=== PATIENT | female | born 1940 | race Caucasian/White ===

== ENCOUNTER → 2016-06-26 | Outpatient (CLI) | payer MEDICARE, BC ==
--- NOTE | 2016-06-26 16:45 | MR ---
EXAMINATION TYPE: MR lumbar spine wo con DATE OF EXAM: 06/26/2016 4:31 PM COMPARISON: CT of the lumbar spine dated 07/31/2013 HISTORY: LBP, LLE radiculopathy x 6 months, no trauma/surgery TECHNIQUE: Multiplanar, multisequence images of the lumbar spine were acquired. There is a transitional vertebra l segment with partial sacralization of L5. Prior any surgical intervention radiographic correlation is advised. L1-L2: There is mild decreased signal and loss of height compatible degenerative disc disease. Minima l posterior disc bulge noted. No herniation protrusion or central stenosis. Foramina are patent. L2-L3: There is mild decreased signal and loss of height compatible degenerative disc disease. Minima l posterior disc bulge noted. No herniation protrusion or central stenosis. Foramina are patent. L3-L4: There is an L3 burst fracture with retropulsion of 1.2 cm. Interval progression noted from violeta or CT. There is effacement of the ventral thecal sac with the severe canal stenosis. There is bilate ral foraminal encroachment. There is posterior disc bulge noted with disc desiccation identified. L4-L5: Normal disc appearance without desiccation. No herniation, protrusion or disc bulging. No ca nal stenosis is present. Foramina are patent bilaterally. L5-S1: Normal disc appearance without desiccation. No herniation, protrusion or disc bulging. No ca nal stenosis is present. Foramina are patent bilaterally. No paraspinal masses are identified. Conus medullaris has a normal appearance. IMPRESSION: 1. Remote L3 burst fracture with retropulsion and severe resultant canal stenosis at this level. 2. Mild multilevel degenerative disc disease.
== END | disposition home or self-care (01) ==
LOC: RADMRIMAIN 14:55
PROVIDERS: ATTEND Physician Assistant
DX: S32.031A Stable burst fracture of third lumbar vertebra, initial encounter for closed fracture (principal); M48.06 Spinal stenosis, lumbar region; M51.36 Other intervertebral disc degeneration, lumbar region
CPT/HCPCS: 72148

== ENCOUNTER → 2016-07-14 | Outpatient (CLI) | payer MEDICARE, BC ==
--- NOTE | 2016-07-15 17:32 | BD ---
EXAMINATION TYPE: MG DEXA axial skeleton. DATE OF EXAM: 07/14/2016 2:53 PM COMPARISON: NONE CLINICAL HISTORY: 76-year-old female OSTEOPENIA Height: 5'8 Weight: 240 FRAX RISK QUESTIONS: Alcohol (3 or more units per day): no Family History (Parent hip fracture): no Glucocorticoids (More than 3mos): no (Ex: prednisone, prednisolone, methylprednisolone, dexamethasone, and hydrocortisone). History of Fracture in Adulthood: no Secondary Osteoporosis: 1. Type 1 Diabetes: no 2. Hyperthyroidism: no 3. Menopause before 45: yes 4. Malnutrition: no 5. Chronic liver disease: no Rheumatoid Arthritis: no Current Tobacco Use: no RISK FACTORS HISTORY OF: Spine Fracture: L4 When: 2013 Other Fractures since Age 52: When: 2013 Active Family History of Osteoporosis: Postmenopausal woman: MEDICATIONS: Additional Medications: pain, high blood pressure, cholesterol Additional History: EXAM MEASUREMENTS: Bone mineral density about the R hip (g/cm2): 1.029 Bone mineral density about the L hip (g/cm2): 1.058 T Score values are as follows: -----R Neck: -0.1 -----L Neck: 0.1 -----R Total: 0.6 -----L Total: 0.9 IMPRESSION: Normal as measured by T score values within both hips. Consider repeating this study in 5 years or so mira if there is some new clinical indication. NOTE: T-SCORE=SD OF THE YOUNG ADULT MEAN.
== END | disposition home or self-care (01) ==
LOC: RADBDWWP 14:33
PROVIDERS: ATTEND Family Medicine
DX: M85.80 Other specified disorders of bone density and structure, unspecified site (principal)
CPT/HCPCS: 77080

== ENCOUNTER → 2017-09-03 | Outpatient (CLI) | payer MEDICARE, BC ==
--- NOTE | 2017-09-03 18:27 | US ---
EXAMINATION TYPE: US venous doppler duplex LE LT DATE OF EXAM: 09/03/2017 5:29 PM COMPARISON: 08/01/2013 CLINICAL HISTORY: R60.0 Localized edema. LEFT LOWER LEG REDNESS SIDE PERFORMED: Left TECHNIQUE: The lower extremity deep venous system is examined utilizing real time linear array sonog alvina with graded compression, doppler sonography and color-flow sonography. VESSELS IMAGED: External Iliac Vein (EIV) Common Femoral Vein Deep Femoral Vein Greater Saphenous Vein * Femoral Vein Popliteal Vein Small Saphenous Vein * Proximal Calf Veins (* superficial vessels) Left Leg: Negative for DVT IMPRESSION: Negative exam. No evidence of deep venous thrombosis in the left leg. No change.
== END | disposition home or self-care (01) ==
LOC: RADUSMAIN 17:08
PROVIDERS: ATTEND Physician Assistant
DX: R60.0 Localized edema (principal)

== ENCOUNTER 2017-12-07 00:50 | Inpatient (IN) | payer BC, MEDICARE ==
--- NOTE | 2017-12-07 00:57 | ED ---
General Adult HPI - General Stated complaint: GAGAN Time Seen by Provider: 12/07/17 00:52 - History of Present Illness Initial comments: Yulissa is a 77-year-old female with past medical history listed below who presents to ED via EMS for evaluation of difficulty breathing. History is limited by patient's respiratory effort. EMS reports that they were dispatched for difficulty breathing. They found the patient in moderate to severe respiratory distress, tachypneic, one-word dyspnea , she was treated in route to the hospital with DuoNeb, Solu-Medrol and supplemental oxygen with increase in her oxygen saturation from the mid 80s to the mid 90s. She complained of pressure in her chest with breathing, EKG was obtained and revealed bigeminy no acute ST elevations or depressions. Upon arrival patient reports she is having difficulty breathing. She is able to answer one to 2 word answers. - Related Data Home Medications Medication Instructions Recorded Confirmed Acetaminophen [Tylenol] 650 mg PO DIRECTED PRN 07/31/13 07/31/13 Cetirizine HCl/Pseudoephedrine 1 tab PO DAILY 07/31/13 07/31/13 [Zyrtec-D Tablet] Cholecalciferol [Vitamin D3] 2,000 unit PO AC-SUPPER 07/31/13 07/31/13 Multivitamin/Iron/Folic Acid 1 tab PO AC-SUPPER 07/31/13 07/31/13 [Centrum Complete Multivit Tab] Olmesartan/Hydrochlorothiazide 1 tab PO DAILY 07/31/13 07/31/13 [Benicar Hct 40-25 mg Tablet] Sertraline [Zoloft] 25 mg PO DAILY 07/31/13 07/31/13 Simvastatin [Zocor] 40 mg PO AC-SUPPER 07/31/13 07/31/13 Previous Rx's Medication Instructions Recorded Aspirin EC [Ecotrin Low Dose] 81 mg PO DAILY #30 tablet. 08/06/13 Cefuroxime Axetil [Ceftin] 500 mg PO BID #10 tablet 08/06/13 Docusate [Colace] 100 mg PO BID PRN #30 cap 08/06/13 HYDROcodone/APAP 5-325MG [[place] 1 each PO Q6HR PRN #30 tab 08/06/13 5-325] Heparin Sodium,Porcine [Heparin 5,000 unit SQ BID #60 vial 08/06/13 Sodium] Nicotine 21Mg/24Hr Patch [Habitrol] 1 patch TRANSDERM DAILY #30 patch 08/06/13 traMADol HCL [Ultram] 50 mg PO TID PRN #30 tablet 08/06/13 Allergies Allergy/AdvReac Type Severity Reaction Status Date / Time erythromycin base AdvReac Rash/Hives Verified 07/31/13 18:32 [Erythromycin Base] Sulfa (Sulfonamide AdvReac Rash/Hives Verified 07/31/13 18:32 Antibiotics) Review of Systems ROS Statement: Those systems with pertinent positive or pertinent negative responses have been documented in the HPI. ROS Other: All systems not noted in ROS Statement are negative. Limitations: ROS unobtainable due to patients medical condition (History is limited by patient's respiratory distress) Past Medical History Past Medical History: COPD, Hyperlipidemia, Hypertension, Osteoarthritis (OA) Additional Past Medical History / Comment(s): arthritis, BRONCHITIS, DIVERTICULITIS, IBS, UTI, URINARY INCONT,HIATL HERNIA, CONSTIPATION, FIBROMYALGIA History of Any Multi-Drug Resistant Organisms: None Reported Past Surgical History: Appendectomy, Bladder Surgery, Cholecystectomy, Hysterectomy, Orthopedic Surgery, Tonsillectomy Additional Past Surgical History / Comment(s): JORDEN MAMMORY GLANDS REMOVED D/T DRAINAGE PROBLEMS, RT KNEE ARTHROSCOPY, 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 EYES: The sclera were anicteric and conjunctiva were pink and moist. Extraocular movements were intact and pupils were equal round and reactive to light. Eyelids were unremarkable. PULMONARY: Tachypnea, increased work of breathing, accessory muscle use Crackles in the bilateral bases CARDIOVASCULAR: There is a regular rate and rhythm without any murmurs gallops or rubs. ABDOMEN: Soft and nontender with normal bowel sounds. Belly breathing noted SKIN: Skin is clear with no lesions or rashes and otherwise unremarkable. NEUROLOGIC: Awake and alert MUSCULOSKELETAL: 2+ pitting edema bilateral lower extremities LYMPHATICS: No significant lymphadenopathy is noted PSYCHIATRIC: Normal psychiatric evaluation. Limitations: no limitations Course Vital Signs 12/07/17 12/07/17 12/07/17 00:57 01:25 02:30 Temperature 97.1 F L 97.1 F L Pulse Rate 109 H 80 87 Respiratory 22 15 18 Rate Blood Pressure 191/91 206/86 201/79 O2 Sat by Pulse 96 99 98 Oximetry 12/07/17 12/07/17 03:05 03:53 Temperature Pulse Rate 83 82 Respiratory 18 18 Rate Blood Pressure 219/106 176/83 O2 Sat by Pulse 99 97 Oximetry EKG Findings - EKG Comments: EKG Findings:: EKG obtained at 12:54 AM, rate is 82, rhythm is sinus with frequent PVCs, is a leftward axis, normal intervals, VT 188, QRS 84, QTC 453. His noted to be a pattern of bigeminy. No acute ST elevations or depressions no evidence of acute ischemia or infarction. Medical Decision Making - Medical Decision Making The patient was seen and evaluated, history was obtained from EMS and the patient Patient in moderate respiratory distress tachypneic, 1-2 word dyspnea BIPAP was ordered immediately upon arrival She received DuoNeb and 125 of Solu-Medrol and route Labs and imaging were ordered Chest x-ray suggestive of bilateral infiltrates consistent with healthcare associated pneumonia, Zosyn and Levaquin ordered Chest x-ray also suggestive of CHF with some blunting of the costophrenic angles Lasix ordered Patient was reevaluated, improved work of breathing respiratory rate and oxygen saturation on BiPAP. Patient appears much more comfortable. Noted to be hypertensive. We'll order nitro Patient care was discussed with the instance of this Dr. Nichole who states that based on the patient's clinical improvement with BiPAP she does not warrant ICU admission is stable for selective floor Admission orders placed - Lab Data Result diagrams: 12/07/17 01:20 12/07/17 01:20 Lab Results 12/07/17 12/07/17 12/07/17 Range/Units 01:20 01:20 01:20 WBC (3.8-10.6) k/uL RBC (3.80-5.40) m/uL Hgb (11.4-16.0) gm/dL Hct (34.0-46.0) % MCV (80.0-100.0) fL MCH (25.0-35.0) pg MCHC (31.0-37.0) g/dL RDW (11.5-15.5) % Plt Count (150-450) k/uL Neutrophils % % Lymphocytes % % Monocytes % % Eosinophils % % Basophils % % Neutrophils # (1.3-7.7) k/uL Lymphocytes # (1.0-4.8) k/uL Monocytes # (0-1.0) k/uL Eosinophils # (0-0.7) k/uL Basophils # (0-0.2) k/uL Hypochromasia PT (9.0-12.0) sec INR (<1.2) APTT (22.0-30.0) sec Sodium 135 L (137-145) mmol/L Potassium 5.4 H (3.5-5.1) mmol/L Chloride 96 L (98-107) mmol/L Carbon Dioxide 30 (22-30) mmol/L Anion Gap 9 mmol/L BUN 80 H (7-17) mg/dL Creatinine 1.82 H (0.52-1.04) mg/dL Est GFR (CKD-EPI)AfAm 31 (>60 ml/min/1.73 sqM) Est GFR (CKD-EPI)NonAf 27 (>60 ml/min/1.73 sqM) Glucose 139 H (74-99) mg/dL Plasma Lactic Acid Cheng (0.7-2.0) mmol/L Calcium 8.3 L (8.4-10.2) mg/dL Magnesium 2.7 H (1.6-2.3) mg/dL Total Bilirubin 0.6 (0.2-1.3) mg/dL AST 28 (14-36) U/L ALT 56 H (9-52) U/L Alkaline Phosphatase 70 (38-126) U/L Total Creatine Kinase 132 (30-135) U/L CK-MB (CK-2) 6.5 H (0.0-2.4) ng/mL CK-MB (CK-2) Rel Index 4.9 Troponin I 0.118 H* (0.000-0.034) ng/mL NT-Pro-B Natriuret Pep 8990 pg/mL Total Protein 6.2 L (6.3-8.2) g/dL Albumin 3.5 (3.5-5.0) g/dL 12/07/17 12/07/17 12/07/17 Range/Units 01:20 01:20 01:20 WBC 20.0 H (3.8-10.6) k/uL RBC 3.72 L (3.80-5.40) m/uL Hgb 10.8 L (11.4-16.0) gm/dL Hct 34.7 (34.0-46.0) % MCV 93.4 (80.0-100.0) fL MCH 29.0 (25.0-35.0) pg MCHC 31.0 (31.0-37.0) g/dL RDW 14.8 (11.5-15.5) % Plt Count 277 (150-450) k/uL Neutrophils % 91 % Lymphocytes % 3 % Monocytes % 5 % Eosinophils % 0 % Basophils % 0 % Neutrophils # 18.2 H (1.3-7.7) k/uL Lymphocytes # 0.6 L (1.0-4.8) k/uL Monocytes # 1.0 (0-1.0) k/uL Eosinophils # 0.1 (0-0.7) k/uL Basophils # 0.0 (0-0.2) k/uL Hypochromasia Slight PT 10.9 (9.0-12.0) sec INR 1.1 (<1.2) APTT 20.8 L (22.0-30.0) sec Sodium (137-145) mmol/L Potassium (3.5-5.1) mmol/L Chloride (98-107) mmol/L Carbon Dioxide (22-30) mmol/L Anion Gap mmol/L BUN (7-17) mg/dL Creatinine (0.52-1.04) mg/dL Est GFR (CKD-EPI)AfAm (>60 ml/min/1.73 sqM) Est GFR (CKD-EPI)NonAf (>60 ml/min/1.73 sqM) Glucose (74-99) mg/dL Plasma Lactic Acid Cheng 1.2 (0.7-2.0) mmol/L Calcium (8.4-10.2) mg/dL Magnesium (1.6-2.3) mg/dL Total Bilirubin (0.2-1.3) mg/dL AST (14-36) U/L ALT (9-52) U/L Alkaline Phosphatase (38-126) U/L Total Creatine Kinase (30-135) U/L CK-MB (CK-2) (0.0-2.4) ng/mL CK-MB (CK-2) Rel Index Troponin I (0.000-0.034) ng/mL NT-Pro-B Natriuret Pep pg/mL Total Protein (6.3-8.2) g/dL Albumin (3.5-5.0) g/dL Disposition Clinical Impression: HCAP (healthcare-associated pneumonia), CHF (congestive heart failure), Respiratory distress Disposition: ADMITTED IP TO THIS HOSP
--- NOTE | 2017-12-07 01:47 | XR ---
EXAMINATION TYPE: XR chest 1V portable DATE OF EXAM: 12/07/2017 COMPARISON: 03/14/2013 HISTORY: Short of breath TECHNIQUE: Single frontal view of the chest is obtained. Findings Extensive bilateral pulmonary infiltrates. Heart is probably enlarged. There are chest leads. There i s blunting of costophrenic angles. There are chest leads. IMPRESSION: New pulmonary infiltrates and pleural fluid compared to old exam. This could relate to congestive hea rt failure and RDS.
[2017-12-07 01:52] LABS: Basophils % (A) 0 %; Eosinophils # (A) 0.1 k/uL (0-0.7); Eosinophils % (A) 0 %; HCT 34.7 % (34.0-46.0); HGB 10.8 gm/dL (11.4-16.0); Hypochromasia Slight; Lymphocytes # (A) 0.6 k/uL (1.0-4.8); Lymphocytes % (A) 3 %; MCV 93.4 fL (80.0-100.0); Mean Platelet Volume 7.6; Monocytes % (A) 5 %; Neutrophils # (A) 18.2 k/uL (1.3-7.7); Neutrophils % (A) 91 %; Platelet Count 277 k/uL (150-450); RBC 3.72 m/uL (3.80-5.40); RDW 14.8 % (11.5-15.5)
[2017-12-07 02:14] LABS: Albumin 3.5 g/dL (3.5-5.0); Calcium 8.3 mg/dL (8.4-10.2); Magnesium 2.7 mg/dL (1.6-2.3); Potassium 5.4 mmol/L (3.5-5.1); Total Bilirubin 0.6 mg/dL (0.2-1.3); Total Protein 6.2 g/dL (6.3-8.2)
[2017-12-07 02:18] LABS: INR 1.1 (<1.2); Prothrombin Time 10.9 sec (9.0-12.0)
[2017-12-07 02:19] LABS: Creatine Kinase MB 6.5 ng/mL (0.0-2.4)
[2017-12-07] MEDS ORDERED: LEVOFLOXACIN 500MG-D5W PMX 500 MG in DEXTROSE/WATER 1 100ML.BAG IVPB STA (02:21)
[2017-12-07] MEDS ORDERED: PIPERACILLIN-TAZOBACTAM 3.375 GM in DEXTROSE/WATER 1 50ML.BAG IVPB STA (02:21)
[2017-12-07 02:22] LABS: Troponin I 0.118 ng/mL (0.000-0.034)
[2017-12-07] MEDS ORDERED: FUROSEMIDE 10 MG/ML 2 ML VIAL IV ONE (02:22)
[2017-12-07 02:31] LABS: Partial Thromboplastin Time 20.8 sec (22.0-30.0)
[2017-12-07] MEDS ORDERED: NALOXONE 0.4 MG/ML 1 ML VIAL IV PRN (02:48)
[2017-12-07] MEDS ORDERED: NITROGLYCERIN-D5W PMX 50 MG in DEXTROSE/WATER 1 250ML.BAG IV ONE (02:54)
[2017-12-07] MEDS: MORPHINE SULFATE 4 MG/ML SYRINGE IV PRN (03:31)
[2017-12-07 04:40] LABS: Glucose,Whole Blood 179 mg/dL (75-99)
[2017-12-07 08:20] LABS: Creatine Kinase MB 6.1 ng/mL (0.0-2.4)
[2017-12-07 08:22] LABS: Troponin I 0.119 ng/mL (0.000-0.034)
[2017-12-07] MEDS ORDERED: ALPRAZolam 0.25 MG TAB PO STA (08:50)
[2017-12-07] MEDS: PANTOPRAZOLE 40 MG/10 ML VIAL IV SCH (09:29)
[2017-12-07 10:37] LABS: Appearance,Urine Clear (Clear); Bilirubin,Urine Negative (Negative); Blood,Urine Small (Negative); Color,Urine Light Yellow; Glucose,Urine (UA) Negative (Negative); Hyaline Casts,Urine 3 /lpf (0-2); Ketones,Urine Negative (Negative); Leukocyte Esterase,Urine Moderate (Negative); Mucus,Urine Rare /hpf; Nitrite,Urine Negative (Negative); PH, Urine 5.5 (5.0-8.0); Protein,Urine 2+ (Negative); RBC,Urine 2 /hpf (0-5); Specific Gravity,Urine 1.011 (1.001-1.035); Squamous Epithelial Cell,Urine 1 /hpf (0-4); Urobilinogen,Urine <2.0 mg/dL (<2.0); WBC,Urine 18 /hpf (0-5)
[2017-12-07] MEDS ORDERED: FUROSEMIDE 10 MG/ML 10 ML VIAL IV SCH (11:45)
[2017-12-07] MEDS ORDERED: ALBUTEROL NEBULIZED 2.5 MG/3 ML INHALATION PRN (11:46)
[2017-12-07] MEDS ORDERED: predniSONE 50 MG TAB PO ONE (12:00)
[2017-12-07] MEDS ORDERED: NON-FORMULARY DRUG (Tiotropium Bromide [Spiriva] 1 CAP) INHALATION SCH (12:00)
[2017-12-07] MEDS ORDERED: FUROSEMIDE 10 MG/ML 10 ML VIAL IV STA (12:05)
--- NOTE | 2017-12-07 12:33 | P.CNPUL ---
History of Present Illness Consult date: 12/07/17 Reason for consult: dyspnea, cough, hypoxemia Chief complaint: Shortness of breath History of present illness: This is a 77-year-old female who presented to emergency department from [facility] complaining of worsening shortness of breath. The patient was recently hospitalized at [facility] from 11/26/2017 and discharged on 12/02/2017. The patient was treated for congestive heart failure , acute right lower extremity DVT, multifocal atrial tachycardia. The patient was found by EMS to have moderate to severe respiratory distress, tachypnea. She was also found to have oxygen saturation in the 80s. She did have intermittent chest pressure. She also complained of cough which was nonproductive. On chest x-ray the patient was found to have by basilar infiltrates and pleural effusions. The patient was placed on BiPAP overnight. She appears to be much more comfortable. She states she feels much better with the BiPAP on. In the emergency department the patient was also found to be hypertensive with systolic blood pressures between 190 and 220. The patient was subsequently started on nitroglycerin drip. She was not having any fevers or chills. The patient also has known severe persistent asthma and is on Xolair injections as an outpatient as well as Trelegy inhaler. Review of Systems All systems: negative Past Medical History Past Medical History: Atrial Fibrillation, Asthma, Heart Failure, COPD, Eye Disorder, Fibromyalgia, GERD/Reflux, Hyperlipidemia, Hypertension, Osteoarthritis (OA), Pneumonia, Renal Disease, Supraventricular Tachycardia (SVT ) Additional Past Medical History / Comment(s): Pt recently admitted to [facility] with SOB, CHF, elevated blood sugars, Afib, SVT, dvt L upper leg and possible PE and possible TIA-discharged to [facility] for rehab. Pt has been basically wheelchair bound-stands pivots only and has been wearing oxygen / since admitting to rehab. Other HX: TIAs and family states has L sided weakness but were never told she had a CVA, bilateral lower leg cellulitis/ wounds/edema, L4 fracture after fall in 2013/chronic back pain, DJD, CKD stage III, uirnary incontinence at times, UTIs, constipation, "cloudy" corneas. 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 Past Anesthesia/Blood Transfusion Reactions: Blood Transfusion Reaction, Motion Sickness Additional Past Anesthesia/Blood Transfusion Reaction / Comment(s): 1961 RECEIVED BLOOD AFTER GIVING -BROKE OUT IN [employer] Smoking Status: Current some day smoker - Past Family History Father Family Medical History: Congestive Heart Failure (CHF), Hyperlipidemia, Hypertension, Renal Disease Additional Family Medical History / Comment(s): Father lived to be 90yrs old. Mother Family Medical History: Congestive Heart Failure (CHF), Hypertension Additional Family Medical History / Comment(s): Mother in her 80s. Medications and Allergies Home Medications Medication Instructions Recorded Confirmed Type Acetaminophen [Tylenol] 650 mg PO Q6H PRN 07/31/13 12/07/17 History Cholecalciferol [Vitamin D3] 2,000 unit PO HS 07/31/13 12/07/17 History traMADol HCL [Ultram] 50 mg PO TID PRN #30 tablet 08/06/13 12/07/17 Rx ARIPiprazole [Abilify] See Taper PO DIRECTED 12/07/17 12/07/17 History Albuterol Inhaler [Ventolin Hfa 2 puff INHALATION RT-Q6H PRN 12/07/17 12/07/17 History Inhaler] Ammonium Lactate Cream [Lac-Hydrin 1 applic TOPICAL BID 12/07/17 12/07/17 History 12% Cream] Amoxic-Pot Clav 875-125Mg 1 tab PO Q12HR 12/07/17 12/07/17 History [Augmentin 875-125] Atorvastatin [Lipitor] 40 mg PO HS 12/07/17 12/07/17 History Diltiazem HCl [Diltiazem 24Hr ER] 300 mg PO DAILY 12/07/17 12/07/17 History Famotidine 20 mg PO DAILY 12/07/17 12/07/17 History Furosemide [Lasix] 40 mg PO DAILY 12/07/17 12/07/17 History INSULIN LISPRO (HumaLOG) [HumaLOG] See Protocol SQ ACHS 12/07/17 12/07/17 History Ipratropium-Albuterol Nebulize 3 ml INHALATION RT-Q6H 12/07/17 12/07/17 History [Duoneb 0.5 mg-3 mg/3 ml Soln] Magnesium Oxide 400 mg PO HS 12/07/17 12/07/17 History Montelukast [Singulair] 10 mg PO DAILY 12/07/17 12/07/17 History Potassium Chloride [Klor-Con 20] 20 meq PO DAILY 12/07/17 12/07/17 History Tiotropium [place] [Spiriva] 1 cap INHALATION DIRECTED 12/07/17 12/07/17 History Zolpidem [Ambien] 5 mg PO HS PRN 12/07/17 12/07/17 History predniSONE See Taper PO DIRECTED 12/07/17 12/07/17 History Allergies Allergy/AdvReac Type Severity Reaction Status Date / Time erythromycin base AdvReac Rash/Hives Verified 12/07/17 08:20 [Erythromycin Base] Sulfa (Sulfonamide AdvReac Rash/Hives Verified 12/07/17 08:20 Antibiotics) Physical Exam Osteopathic Statement: *. No significant issues noted on an osteopathic structural exam other than those noted in the History and Physical/Consult. Vitals: Vital Signs Temp Pulse Resp BP Pulse Ox 12/07/17 09:00 81 13 163/76 97 12/07/17 08:00 97.0 F L 75 28 H 114/64 95 12/07/17 05:20 78 39 H 143/75 96 12/07/17 05:10 72 30 H 143/75 95 12/07/17 05:00 76 33 H 156/83 96 12/07/17 04:50 80 22 156/83 96 12/07/17 04:40 87 24 156/83 95 12/07/17 04:30 97.8 F 80 22 156/83 91 L 12/07/17 03:53 82 18 176/83 97 12/07/17 03:05 83 18 219/106 99 12/07/17 02:30 87 18 201/79 98 12/07/17 01:25 97.1 F L 80 15 206/86 99 12/07/17 00:57 97.1 F L 109 H 22 191/91 96 Intake and Output 09/12/07/17 12/07/17 22:59 06:59 14:59 Intake Total 51.5 Output Total 400 Balance 51.5 -400 Intake: IV 51.5 Nitroglycerin-D5w Pmx 50 1.5 mg In Dextrose/Water 1 250ml.bag @ 5 MCG/MIN 1.5 mls/hr IV .Q24H ONE Rx#: [id number] Piperacillin-Tazobactam 3 50 .375 gm In Dextrose/Water 1 50ml.bag @ 12.5 mls/hr IVPB ONCE STA Rx#: [id number] Output: Urine 400 Other: Voiding Method Bedpan Weight 119.1 kg General: Alert and oriented x 3, Currently comfortable on BiPAP Cardiovascular: Regular rate and rhythm, S1/S2 Lungs: Coarse breath sounds bilaterally with diffuse crackles Abdomen: Soft nontender nondistended positive bowel sounds Extremities: Trace edema Results - Laboratory Findings CBC and BMP: 12/07/17 01:20 12/07/17 01:20 PT/INR, D-dimer PT 10.9 sec (9.0-12.0) 12/07/17 01:20 INR 1.1 (<1.2) 12/07/17 01:20 Abnormal lab findings: Abnormal Labs 12/07/17 12/07/17 12/07/17 01:20 01:20 01:20 WBC 20.0 H RBC 3.72 L Hgb 10.8 L Neutrophils # 18.2 H Lymphocytes # 0.6 L APTT Sodium 135 L Potassium 5.4 H Chloride 96 L BUN 80 H Creatinine 1.82 H Glucose 139 H POC Glucose (mg/dL) Calcium 8.3 L Magnesium 2.7 H ALT 56 H CK-MB (CK-2) 6.5 H Troponin I 0.118 H* Total Protein 6.2 L Urine Protein Urine Blood Ur Leukocyte Esterase Urine WBC Hyaline Casts Urine Mucus 12/07/17 12/07/17 12/07/17 01:20 04:30 07:22 WBC RBC Hgb Neutrophils # Lymphocytes # APTT 20.8 L Sodium Potassium Chloride BUN Creatinine Glucose POC Glucose (mg/dL) 179 H Calcium Magnesium ALT CK-MB (CK-2) 6.1 H Troponin I 0.119 H* Total Protein Urine Protein Urine Blood Ur Leukocyte Esterase Urine WBC Hyaline Casts Urine Mucus 12/07/17 09:40 WBC RBC Hgb Neutrophils # Lymphocytes # APTT Sodium Potassium Chloride BUN Creatinine Glucose POC Glucose (mg/dL) Calcium Magnesium ALT CK-MB (CK-2) Troponin I Total Protein Urine Protein 2+ H Urine Blood Small H Ur Leukocyte Esterase Moderate H Urine WBC 18 H Hyaline Casts 3 H Urine Mucus Rare H - Diagnostic Findings Chest x-ray: report reviewed, image reviewed Assessment and Plan Assessment: Acute hypoxic respiratory failure Bibasilar infiltrates and pleural effusions Acute exacerbation of congestive heart failure Hypertensive emergency NSTEMI History of multifocal atrial tachycardia Recent RLE DVT Severe persistent asthma Leukocytosis likely secondary to steroids Hyponatremia, fluid overload Mild hyperkalemia Acute kidney injury on chronic kidney disease stage III Obesity, concern for MAIRA, patient has history of MAIRA but declines to wear CPAP Continue BiPAP support Nitroglycerin drip Diuresis Cardiology recommendations Pulmicort and duo nebs Prednisone taper Antibiotics per primary team: continue coarse of Augmentin Incentive spirometry and pulmonary hygiene Daily weights and I/Os Monitor urine output and renal function Continue Singulair and Xolair outpatient Serial CXR Patient will be reeducated on obstructive sleep apnea and congestive heart failure. She will be encouraged to use CPAP. GI and DVT prophylaxis: Eliquis and Protonix Thank you for this consultation. We will continue to follow along.
--- NOTE | 2017-12-07 12:52 | P.HPIM ---
History of Present Illness Patient is a very pleasant 75-year-old female came in from [facility] complaining of worsening shortness of breath. Patient was complaining of orthopnea no clear history of proximal nocturnal dyspnea. Patient was recently discharged from [facility] after she was treated for heart failure what appears to be chronic diastolic dysfunction with acute exacerbation apparently had a right lower extremity DVT does have history of multifocal atrial tachycardia for which patient is on Cardizem as well. Patient on this hospitalization is found to have bilateral pulmonary edema bilateral pleural effusions with elevated BNP unable to appreciate JVD because of the neck contour presently on BiPAP. Patient doesn't appear to be any oxygen at home. Probably has COPD never had any sleep study. Patient is on Augmentin for had recent bronchitis. Patient is also on systemic steroids for COPD. Patient used to be a smoker quit smoking years ago. Patient is on low-dose of oral Lasix. Patient does have chronic kidney disease stage III as per the patient and I do not have her baseline creatinine presently around 1.8. Patient was also started on nitroglycerin drip because of concerns of hypertensive emergency. Patient has mildly elevated troponins secondary to heart failure and kidney failure denied any chest pain. Found to be saturating and 80% .Presently on 50% BiPAP Review of Systems REVIEW OF SYSTEMS: CONSTITUTIONAL: No fever, no malaise, no fatigue. HEENT: No recent visual problems or hearing problems. Denied any sore throat. CARDIOVASCULAR: No chest pain, orthopnea, PND, no palpitations, no syncope. PULMONARY: As mentioned in HPI GASTROINTESTINAL: No diarrhea, no nausea, no vomiting, no abdominal pain. Normoactive bowel sounds. NEUROLOGICAL: No headaches, no weakness, no numbness. HEMATOLOGICAL: Denies any bleeding or petechiae. GENITOURINARY: Denies any burning micturition, frequency, or urgency. MUSCULOSKELETAL/RHEUMATOLOGICAL: Denies any joint pain, swelling, or any muscle pain. ENDOCRINE: Denies any polyuria or polydipsia. The rest of the 14-point review of systems is negative. Past Medical History Past Medical History: Atrial Fibrillation, Asthma, Heart Failure, COPD, Eye Disorder, Fibromyalgia, GERD/Reflux, Hyperlipidemia, Hypertension, Osteoarthritis (OA), Pneumonia, Renal Disease, Supraventricular Tachycardia (SVT ) Additional Past Medical History / Comment(s): Pt recently admitted to [facility] with SOB, CHF, elevated blood sugars, Afib, SVT, dvt L upper leg and possible PE and possible TIA-discharged to [facility] for rehab. Pt has been basically wheelchair bound-stands pivots only and has been wearing oxygen 24/ since admitting to rehab. Other HX: TIAs and family states has L sided weakness but were never told she had a CVA, bilateral lower leg cellulitis/ wounds/edema, L4 fracture after fall in 2013/chronic back pain, DJD, CKD stage III, uirnary incontinence at times, UTIs, constipation, "cloudy" corneas. 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 Past Anesthesia/Blood Transfusion Reactions: Blood Transfusion Reaction, Motion Sickness Additional Past Anesthesia/Blood Transfusion Reaction / Comment(s): 1961 RECEIVED BLOOD AFTER GIVING -BROKE OUT IN [employer] Smoking Status: Current some day smoker - Past Family History Father Family Medical History: Congestive Heart Failure (CHF), Hyperlipidemia, Hypertension, Renal Disease Additional Family Medical History / Comment(s): Father lived to be 90yrs old. Mother Family Medical History: Congestive Heart Failure (CHF), Hypertension Additional Family Medical History / Comment(s): Mother in her 80s. Medications and Allergies Home Medications Medication Instructions Recorded Confirmed Type Acetaminophen [Tylenol] 650 mg PO Q6H PRN 07/31/13 12/07/17 History Cholecalciferol [Vitamin D3] 2,000 unit PO HS 07/31/13 12/07/17 History traMADol HCL [Ultram] 50 mg PO TID PRN #30 tablet 08/06/13 12/07/17 Rx ARIPiprazole [Abilify] See Taper PO DIRECTED 12/07/17 12/07/17 History Albuterol Inhaler [Ventolin Hfa 2 puff INHALATION RT-Q6H PRN 12/07/17 12/07/17 History Inhaler] Ammonium Lactate Cream [Lac-Hydrin 1 applic TOPICAL BID 12/07/17 12/07/17 History 12% Cream] Amoxic-Pot Clav 875-125Mg 1 tab PO Q12HR 12/07/17 12/07/17 History [Augmentin 875-125] Atorvastatin [Lipitor] 40 mg PO HS 12/07/17 12/07/17 History Diltiazem HCl [Diltiazem 24Hr ER] 300 mg PO DAILY 12/07/17 12/07/17 History Famotidine 20 mg PO DAILY 12/07/17 12/07/17 History Furosemide [Lasix] 40 mg PO DAILY 12/07/17 12/07/17 History INSULIN LISPRO (HumaLOG) [HumaLOG] See Protocol SQ ACHS 12/07/17 12/07/17 History Ipratropium-Albuterol Nebulize 3 ml INHALATION RT-Q6H 12/07/17 12/07/17 History [Duoneb 0.5 mg-3 mg/3 ml Soln] Magnesium Oxide 400 mg PO HS 12/07/17 12/07/17 History Montelukast [Singulair] 10 mg PO DAILY 12/07/17 12/07/17 History Potassium Chloride [Klor-Con 20] 20 meq PO DAILY 12/07/17 12/07/17 History Tiotropium [place] [Spiriva] 1 cap INHALATION DIRECTED 12/07/17 12/07/17 History Zolpidem [Ambien] 5 mg PO HS PRN 12/07/17 12/07/17 History predniSONE See Taper PO DIRECTED 12/07/17 12/07/17 History Allergies Allergy/AdvReac Type Severity Reaction Status Date / Time erythromycin base AdvReac Rash/Hives Verified 12/07/17 08:20 [Erythromycin Base] Sulfa (Sulfonamide AdvReac Rash/Hives Verified 12/07/17 08:20 Antibiotics) Physical Exam Vitals: Vital Signs Temp Pulse Pulse Resp BP BP Pulse Ox 12/07/17 12:23 96.4 F L 83 29 H 139/68 98 12/07/17 09:00 81 13 163/76 97 12/07/17 08:00 97.0 F L 75 28 H 114/64 95 12/07/17 05:20 78 39 H 143/75 96 12/07/17 05:10 72 30 H 143/75 95 12/07/17 05:00 76 33 H 156/83 96 12/07/17 04:50 80 22 156/83 96 12/07/17 04:40 87 24 156/83 95 12/07/17 04:30 97.8 F 80 22 156/83 91 L 12/07/17 03:53 82 18 176/83 97 12/07/17 03:05 83 18 219/106 99 12/07/17 02:30 87 18 201/79 98 12/07/17 01:25 97.1 F L 80 15 206/86 99 12/07/17 00:57 97.1 F L 109 H 22 191/91 96 Intake and Output 12/06/17 12/07/17 12/07/17 22:59 06:59 14:59 Intake Total 51.5 Output Total 400 Balance 51.5 -400 Intake: IV 51.5 Nitroglycerin-D5w Pmx 50 1.5 mg In Dextrose/Water 1 250ml.bag @ 5 MCG/MIN 1.5 mls/hr IV .Q24H ONE Rx#: [id number] Piperacillin-Tazobactam 3 50 .375 gm In Dextrose/Water 1 50ml.bag @ 12.5 mls/hr IVPB ONCE STA Rx#: [id number] Output: Urine 400 Other: Voiding Method Bedpan Weight 119.1 kg PHYSICAL EXAMINATION: GENERAL: The patient is alert and oriented x3, not in any acute distress. Well developed, well nourished. HEENT: Pupils are round and equally reacting to light. EOMI. No scleral icterus. No conjunctival pallor. Normocephalic, atraumatic. No pharyngeal erythema. No thyromegaly. CARDIOVASCULAR: S1 and S2 present. No murmurs, rubs, or gallops. Unable to assess JVD PULMONARY: Rhonchus breath sounds bibasilar crackles ABDOMEN: Soft, nontender, nondistended, normoactive bowel sounds. No palpable organomegaly. MUSCULOSKELETAL: No joint swelling or deformity. EXTREMITIES: No cyanosis, clubbing, does have 1+ pitting pedal edema NEUROLOGICAL: Gross neurological examination did not reveal any focal deficits. SKIN: No rashes. Results CBC & Chem 7: 12/07/17 01:20 12/07/17 01:20 Labs: Abnormal Lab Results - Last 24 Hours (Table) 12/07/17 12/07/17 12/07/17 Range/Units 01:20 01:20 01:20 WBC 20.0 H (3.8-10.6) k/uL RBC 3.72 L (3.80-5.40) m/uL Hgb 10.8 L (11.4-16.0) gm/dL Neutrophils # 18.2 H (1.3-7.7) k/uL Lymphocytes # 0.6 L (1.0-4.8) k/uL APTT (22.0-30.0) sec Sodium 135 L (137-145) mmol/L Potassium 5.4 H (3.5-5.1) mmol/L Chloride 96 L (98-107) mmol/L BUN 80 H (7-17) mg/dL Creatinine 1.82 H (0.52-1.04) mg/dL Glucose 139 H (74-99) mg/dL POC Glucose (mg/dL) (75-99) mg/dL Calcium 8.3 L (8.4-10.2) mg/dL Magnesium 2.7 H (1.6-2.3) mg/dL ALT 56 H (9-52) U/L CK-MB (CK-2) 6.5 H (0.0-2.4) ng/mL Troponin I 0.118 H* (0.000-0.034) ng/mL Total Protein 6.2 L (6.3-8.2) g/dL Urine Protein (Negative) Urine Blood (Negative) Ur Leukocyte Esterase (Negative) Urine WBC (0-5) /hpf Hyaline Casts (0-2) /lpf Urine Mucus (None) /hpf 12/07/17 12/07/17 12/07/17 Range/Units 01:20 04:30 07:22 WBC (3.8-10.6) k/uL RBC (3.80-5.40) m/uL Hgb (11.4-16.0) gm/dL Neutrophils # (1.3-7.7) k/uL Lymphocytes # (1.0-4.8) k/uL APTT 20.8 L (22.0-30.0) sec Sodium (137-145) mmol/L Potassium (3.5-5.1) mmol/L Chloride (98-107) mmol/L BUN (7-17) mg/dL Creatinine (0.52-1.04) mg/dL Glucose (74-99) mg/dL POC Glucose (mg/dL) 179 H (75-99) mg/dL Calcium (8.4-10.2) mg/dL Magnesium (1.6-2.3) mg/dL ALT (9-52) U/L CK-MB (CK-2) 6.1 H (0.0-2.4) ng/mL Troponin I 0.119 H* (0.000-0.034) ng/mL Total Protein (6.3-8.2) g/dL Urine Protein (Negative) Urine Blood (Negative) Ur Leukocyte Esterase (Negative) Urine WBC (0-5) /hpf Hyaline Casts (0-2) /lpf Urine Mucus (None) /hpf 12/07/17 Range/Units 09:40 WBC (3.8-10.6) k/uL RBC (3.80-5.40) m/uL Hgb (11.4-16.0) gm/dL Neutrophils # (1.3-7.7) k/uL Lymphocytes # (1.0-4.8) k/uL APTT (22.0-30.0) sec Sodium (137-145) mmol/L Potassium (3.5-5.1) mmol/L Chloride (98-107) mmol/L BUN (7-17) mg/dL Creatinine (0.52-1.04) mg/dL Glucose (74-99) mg/dL POC Glucose (mg/dL) (75-99) mg/dL Calcium (8.4-10.2) mg/dL Magnesium (1.6-2.3) mg/dL ALT (9-52) U/L CK-MB (CK-2) (0.0-2.4) ng/mL Troponin I (0.000-0.034) ng/mL Total Protein (6.3-8.2) g/dL Urine Protein 2+ H (Negative) Urine Blood Small H (Negative) Ur Leukocyte Esterase Moderate H (Negative) Urine WBC 18 H (0-5) /hpf Hyaline Casts 3 H (0-2) /lpf Urine Mucus Rare H (None) /hpf Thrombosis Risk Factor Assmnt - Choose All That Apply Any of the Below Risk Factors Present?: Yes Each Factor Represents 1 point: Abnormal pulmonary function (COPD), Heart failure (<1month), Obesity (BMI >25), Serious lung disease incl. pneumonia (< 1month) Other Risk Factors: Yes Each Risk Factor Represents 3 Points: Age 75 years or older, History of DVT/PE Other congenital or acquired thrombophilia - If yes, enter type in comment: No Thrombosis Risk Factor Assessment Total Risk Factor Score: 10 Thrombosis Risk Factor Assessment Level: High Risk Assessment and Plan Plan: -Acute hypoxic respiratory failure requiring BiPAP continue with BiPAP wean off as tolerated probably secondary to congestive heart failure chronic diastolic dysfunction with acute exacerbation. We'll obtain medical records from [facility] patient will be started on 80 twice a day of IV Lasix patient renal function is poor. -Chronic kidney disease stage 3 secondary to probable hypertensive nephrosclerosis patient may have acute renal dysfunction from heart failure expected to improve with IV Lasix repeat basic metabolic profile tomorrow. -Accelerated hypertension -COPD patient will be resumed on oral steroids but suspicion is low that patient has COPD exacerbation again for suspicion is low for pneumonia as well patient will be resumed on Augmentin as mentioned above -Recent right lower extremity DVT for which patient is an alert course which will be continued -Elevated troponin secondary to heart failure and chronic kidney disease -History of multifocal atrial tachycardia -Obesity will need a sleep study as an outpatient -Gastroesophageal reflux disease
[2017-12-07 15:01] LABS: Creatine Kinase MB 5.6 ng/mL (0.0-2.4)
[2017-12-07] MEDS: IPRATROPIUM-ALBUTEROL 3 ML NEB INHALATION PRN ×2 (15:21→19:19)
[2017-12-07 15:31] LABS: Troponin I 0.103 ng/mL (0.000-0.034)
[2017-12-07] MEDS: AMOXIC-POT CLAV 875-125MG 1 EACH TAB PO SCH (21:07)
[2017-12-07] MEDS: MAGNESIUM OXIDE 400 MG TAB PO SCH (21:08)
[2017-12-07] MEDS: APIXABAN 5 MG TAB PO SCH (21:08)
[2017-12-07] MEDS: FUROSEMIDE 10 MG/ML 10 ML VIAL IV SCH (21:08)
[2017-12-07] MEDS: CHOLECALCIFEROL 1,000 UNIT TAB PO SCH (21:08)
[2017-12-07] MEDS: ATORVASTATIN 40 MG TAB PO SCH (21:08)
[2017-12-07] MEDS: AMMONIUM LACTATE 12% CREAM 140 GM TUBE TOPICAL SCH (21:42)
[2017-12-08] MEDS: MORPHINE SULFATE 4 MG/ML SYRINGE IV PRN ×3 (04:19→16:34)
--- NOTE | 2017-12-08 08:31 | P.CRDCN ---
History of Present Illness Consult date: 12/08/17 Requesting physician: Dominique Toro Consult reason: congestive heart failure Chief complaint: Shortness of breath History of present illness: This is a 77-year-old female with history of COPD, sleep apnea, hypertension, obesity, renal insufficiency, fibromyalgia, GERD, prior TIA, who presented to the hospital from [facility] with symptoms of progressively worsening shortness of breath, she also states that she had can peripheral edema. Positive PND and orthopnea she was recently in [facility] earlier this month, seen in consultation at that time by Dr. Brady, admitted at that time with congestive heart failure. We're also asked to see her at [facility] because of what was initially felt to be A. fib. Dr. Brady reviewed EKGs and felt that the patient had episodes of multifocal atrial tachycardia. She did have an echocardiogram with Doppler study performed while there which revealed an ejection fraction of 55-60% moderate to severe mitral stenosis. She also had a VQ scan performed there which was low probability for pulmonary embolism. Chest x-ray performed on arrival here revealed new pulmonary infiltrates and pleural fluid as compared with prior exam. EKG shows normal sinus rhythm with frequent PVCs. Blood pressure 146/70 with a heart rate in the 70s, temperature 97.3 she is 96% on BiPAP. White blood cell count 20.0, hemoglobin 10.8, platelet count 277. Sodium 135, potassium 5.4, BUN 80, creatinine 1.8. BNP level 8990. Troponins 0.11, 0.11, 0.10. At the time of my examination this morning she does state that her breathing has improved significantly from admission here. She states also that while at [facility] for several days she was unable to urinate, when finally a catheter in place and she felt significantly better. Past Medical History Past Medical History: Atrial Fibrillation, Asthma, Heart Failure, COPD, Eye Disorder, Fibromyalgia, GERD/Reflux, Hyperlipidemia, Hypertension, Osteoarthritis (OA), Pneumonia, Renal Disease, Supraventricular Tachycardia (SVT ) Additional Past Medical History / Comment(s): Pt recently admitted to [facility] with SOB, CHF, elevated blood sugars, Afib, SVT, dvt L upper leg and possible PE and possible TIA-discharged to [facility] for rehab. Pt has been basically wheelchair bound-stands pivots only and has been wearing oxygen 24/ since admitting to rehab. Other HX: TIAs and family states has L sided weakness but were never told she had a CVA, bilateral lower leg cellulitis/ wounds/edema, L4 fracture after fall in 2013/chronic back pain, DJD, CKD stage III, uirnary incontinence at times, UTIs, constipation, "cloudy" corneas. 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 Past Anesthesia/Blood Transfusion Reactions: Blood Transfusion Reaction, Motion Sickness Additional Past Anesthesia/Blood Transfusion Reaction / Comment(s): 1961 RECEIVED BLOOD AFTER GIVING -BROKE OUT IN [facility] Smoking Status: Current some day smoker - Past Family History Father Family Medical History: Congestive Heart Failure (CHF), Hyperlipidemia, Hypertension, Renal Disease Additional Family Medical History / Comment(s): Father lived to be 90yrs old. Mother Family Medical History: Congestive Heart Failure (CHF), Hypertension Additional Family Medical History / Comment(s): Mother in her 80s. Medications and Allergies Home Medications Medication Instructions Recorded Confirmed Type Acetaminophen [Tylenol] 650 mg PO Q6H PRN 07/31/13 12/07/17 History Cholecalciferol [Vitamin D3] 2,000 unit PO HS 07/31/13 12/07/17 History traMADol HCL [Ultram] 50 mg PO TID PRN #30 tablet 08/06/13 12/07/17 Rx ARIPiprazole [Abilify] See Taper PO DIRECTED 12/07/17 12/07/17 History Albuterol Inhaler [Ventolin Hfa 2 puff INHALATION RT-Q6H PRN 12/07/17 12/07/17 History Inhaler] Ammonium Lactate Cream [Lac-Hydrin 1 applic TOPICAL BID 12/07/17 12/07/17 History 12% Cream] Amoxic-Pot Clav 875-125Mg 1 tab PO Q12HR 12/07/17 12/07/17 History [Augmentin 875-125] Atorvastatin [Lipitor] 40 mg PO HS 12/07/17 12/07/17 History Diltiazem HCl [Diltiazem 24Hr ER] 300 mg PO DAILY 12/07/17 12/07/17 History Famotidine 20 mg PO DAILY 12/07/17 12/07/17 History Furosemide [Lasix] 40 mg PO DAILY 12/07/17 12/07/17 History INSULIN LISPRO (HumaLOG) [HumaLOG] See Protocol SQ ACHS 12/07/17 12/07/17 History Ipratropium-Albuterol Nebulize 3 ml INHALATION RT-Q6H 12/07/17 12/07/17 History [Duoneb 0.5 mg-3 mg/3 ml Soln] Magnesium Oxide 400 mg PO HS 12/07/17 12/07/17 History Montelukast [Singulair] 10 mg PO DAILY 12/07/17 12/07/17 History Potassium Chloride [Klor-Con 20] 20 meq PO DAILY 12/07/17 12/07/17 History Tiotropium [place] [Spiriva] 1 cap INHALATION DIRECTED 12/07/17 12/07/17 History Zolpidem [Ambien] 5 mg PO HS PRN 12/07/17 12/07/17 History predniSONE See Taper PO DIRECTED 12/07/17 12/07/17 History Allergies Allergy/AdvReac Type Severity Reaction Status Date / Time erythromycin base AdvReac Rash/Hives Verified 12/07/17 08:20 [Erythromycin Base] Sulfa (Sulfonamide AdvReac Rash/Hives Verified 12/07/17 08:20 Antibiotics) Physical Exam Vitals: Vital Signs Temp Pulse Pulse Pulse Resp BP BP 12/08/17 04:00 97.4 F L 70 18 153/82 12/08/17 00:00 97.0 F L 72 18 144/68 12/07/17 20:16 78 20 12/07/17 20:00 79 87 20 12/07/17 19:42 94.7 F L 87 20 150/63 12/07/17 19:32 78 18 12/07/17 19:20 75 18 12/07/17 15:34 75 18 12/07/17 15:32 97.3 F L 79 27 H 146/74 12/07/17 15:22 75 14 12/07/17 12:23 96.4 F L 83 29 H 139/68 12/07/17 09:00 81 13 163/76 Pulse Ox 12/08/17 04:00 97 12/08/17 00:00 98 12/07/17 20:16 12/07/17 20:00 12/07/17 19:42 97 12/07/17 19:32 12/07/17 19:20 12/07/17 15:34 12/07/17 15:32 96 12/07/17 15:22 12/07/17 12:23 98 12/07/17 09:00 97 Intake and Output 12/07/17 12/08/17 12/08/17 22:59 06:59 14:59 Output Total 800 925 0 Balance -800 -925 0 Output: Urine 800 875 0 Post Void Residual 50 Other: Voiding Method Bedpan Indwelling Catheter # Voids 1 Weight 120.5 kg PHYSICAL EXAMINATION: GENERAL: 77-year-old female in no acute distress at the time of my examination HEENT: Head is atraumatic, normocephalic. Pupils equal, round. Sclera anicteric. Conjunctiva are clear. Mucous membranes of the mouth are moist. Neck is supple. Unable to assess jugular venous pressure. No carotid bruit is heard. HEART EXAMINATION: Heart S1, S2 normal. No murmur or gallop heard. CHEST EXAMINATION: Lungs are clear with mild diminished air entry to the bases. ABDOMEN: Soft, obese,nontender. Bowel sounds are heard. No organomegaly noted. EXTREMITIES: 2+ peripheral pulses with evidence of peripheral edema and no calf tenderness noted. NEUROLOGIC patient is awake, alert and oriented X3. . Results 12/07/17 01:20 12/07/17 01:20 Cardiac Enzymes 12/07/17 12/07/17 Range/Units 07:22 13:55 CK-MB (CK-2) 6.1 H 5.6 H (0.0-2.4) ng/mL Troponin I 0.119 H* 0.103 H* (0.000-0.034) ng/mL Current Medications Generic Name Dose Route Start Last Admin Trade Name Freq PRN Reason Stop Dose Admin Acetaminophen 650 mg 12/07/17 11:46 Tylenol Tab PO Q6H PRN Pain Albuterol Sulfate 2.5 mg 12/07/17 11:46 Ventolin Nebulized INHALATION RT-Q6H PRN Shortness Of Breath Or Wheezing Albuterol/Ipratropium 3 ml 12/07/17 11:43 12/07/17 19:19 Duoneb 0.5 Mg-3 Mg/3 Ml Soln INHALATION 3 ml RT-QID PRN Administration Shortness Of Breath Or Wheezing Amoxicillin/Clavulanate Potassium 1 each 12/07/17 21:00 12/07/17 21:07 Augmentin 875-125 PO 1 each Q12HR LOUANN Administration Apixaban 5 mg 12/07/17 21:00 12/07/17 21:08 Eliquis PO 5 mg BID LOUANN Administration Aripiprazole 5 mg 12/08/17 09:00 Abilify PO DAILY [facility] Atorvastatin Calcium 40 mg 12/07/17 21:00 12/07/17 21:08 Lipitor PO 40 mg HS [facility] Administration Cholecalciferol 2,000 unit 12/07/17 21:00 12/07/17 21:08 Vitamin D3 PO 2,000 unit HS [facility] Administration Diltiazem HCl 300 mg 12/08/17 09:00 Cardizem Cd PO DAILY [facility] Famotidine 20 mg 12/08/17 09:00 Pepcid PO DAILY [facility] Furosemide 80 mg 12/07/17 21:00 12/07/17 21:08 Lasix IV 80 mg Q12HR LOUANN Administration Lactic Acid 1 applic 12/07/17 21:00 12/07/17 21:42 Ammonium Lactate TOPICAL 1 applic BID [facility] Administration Magnesium Oxide 400 mg 12/07/17 21:00 12/07/17 21:08 Mag-Ox PO 400 mg HS [facility] Administration Morphine Sulfate 4 mg 12/07/17 02:48 12/08/17 04:19 Morphine Sulfate (Inj) IV 4 mg Q4HR PRN Administration Severe Pain Naloxone HCl 0.2 mg 12/07/17 02:48 Narcan IV Q2M PRN Opioid Reversal Pantoprazole Sodium 40 mg 12/07/17 09:00 12/07/17 09:29 Protonix IV 40 mg DAILY [facility] Administration Prednisone 40 mg 12/08/17 09:00 PO 12/20/17 08:59 DAILY LOUANN Taper Tramadol HCl 50 mg 12/07/17 11:46 Ultram PO TID PRN Pain Intake and Output 12/07/17 12/08/17 12/08/17 22:59 06:59 14:59 Output Total 800 925 0 Balance -800 -925 0 Output: Urine 800 875 0 Post Void Residual 50 Other: Voiding Method Bedpan Indwelling Catheter # Voids 1 Weight 120.5 kg 12/07/17 01:20 12/07/17 01:20 EKG Interpretations (text) EKG shows normal sinus rhythm with no acute changes. Assessment and Plan Plan: Assessment and plan #1 diastolic congestive heart failure acute on chronic, BNP level 8990 #2 possible pneumonia #3 COPD #4 history of multifocal atrial tachycardia, on Cardizem #5 hypertension #6 prior TIA #7 acute on chronic renal failure #8 abnormal troponins, not consistent with acute coronary syndrome, likely secondary to abnormal renal function. Plan Patient had an echocardiogram with Doppler study performed earlier this month at [facility] which revealed a normal left ventricular systolic function with evidence of moderate to severe mitral stenosis. We will increase her dose of Cardizem 360 mg daily for more optimal heart rate control and blood pressure control. Continue current dose of IV Lasix. Further recommendations to follow. DNP note has been reviewed, I agree with a documented findings and plan of care. Patient was seen and examined.
[2017-12-08] MEDS: AMMONIUM LACTATE 12% CREAM 140 GM TUBE TOPICAL SCH ×2 (08:48→20:17)
[2017-12-08] MEDS: AMOXIC-POT CLAV 875-125MG 1 EACH TAB PO SCH (08:49)
[2017-12-08] MEDS: FUROSEMIDE 10 MG/ML 10 ML VIAL IV SCH ×2 (08:49→20:11)
[2017-12-08] MEDS: APIXABAN 5 MG TAB PO SCH ×2 (08:49→20:11)
[2017-12-08] MEDS: ARIPiprazole 5 MG TAB PO SCH (08:49)
[2017-12-08] MEDS: PANTOPRAZOLE 40 MG/10 ML VIAL IV SCH (08:49)
[2017-12-08] MEDS: predniSONE 20 MG TAB PO SCH (08:50)
[2017-12-08] MEDS: FAMOTIDINE 20 MG TAB PO SCH (08:50)
[2017-12-08] MEDS: DILTIAZEM CD 180 MG CAP.ER.24H PO SCH (08:58)
[2017-12-08] MEDS ORDERED: DILTIAZEM CD 300 MG CAP.ER.24H PO SCH (09:00)
[2017-12-08] MEDS: IPRATROPIUM-ALBUTEROL 3 ML NEB INHALATION PRN (09:03)
--- NOTE | 2017-12-08 10:15 | P.PN ---
<Yadi Melton E - Last Filed: 12/08/17 10:10> Subjective Progress Note Date: 12/08/17 History of present illness: This is a 77-year-old female who presented to emergency department from [facility] complaining of worsening shortness of breath. The patient was recently hospitalized at [facility] from 11/26/2017 and discharged on 12/02/2017. The patient was treated for congestive heart failure , acute right lower extremity DVT, multifocal atrial tachycardia. The patient was found by EMS to have moderate to severe respiratory distress, tachypnea. She was also found to have oxygen saturation in the 80s. She did have intermittent chest pressure. She also complained of cough which was nonproductive. On chest x-ray the patient was found to have by basilar infiltrates and pleural effusions. The patient was placed on BiPAP overnight. She appears to be much more comfortable. She states she feels much better with the BiPAP on. In the emergency department the patient was also found to be hypertensive with systolic blood pressures between 190 and 220. The patient was subsequently started on nitroglycerin drip. She was not having any fevers or chills. The patient also has known severe persistent asthma and is on Xolair injections as an outpatient as well as Trelegy inhaler. Interval history: 12/08/2017patient is being seen examined and evaluated today on rounds. She did utilize her BiPAP overnight. She currently is resting up in bed on 4 L of supplemental oxygen via nasal cannula. She feels her breathing is somewhat improving today. She is responding well to her breathing treatments. She continues with diuresis and is on Lasix 80 mg every 12 hours IV. She does continue to have shortness of breath with exertion and activity. Her cough is improving and is nonproductive. She is afebrile no further complaints. Objective - Vital Signs Vital signs: Vital Signs Temp 97.4 F L 12/08/17 04:00 Pulse 92 12/08/17 09:25 Resp 18 12/08/17 04:00 BP 153/82 12/08/17 04:00 Pulse Ox 97 12/08/17 04:00 Intake & Output 12/07/17 12/08/17 12/08/17 18:59 06:59 18:59 Output Total 1201 925 0 Balance -1201 -925 0 Weight 120.5 kg Output: Urine 1201 875 0 Post Void Residual 50 Other: Voiding Method Bedpan Indwelling Catheter # Voids 1 - Exam General: Alert and oriented x 3, Currently comfortable on BiPAP Cardiovascular: Regular rate and rhythm, S1/S2 Lungs: Coarse breath sounds bilaterally with diffuse crackles Abdomen: Soft nontender nondistended positive bowel sounds Extremities: Trace edema - Labs CBC & Chem 7: 12/07/17 01:20 12/07/17 01:20 Labs: Abnormal Lab Results - Last 24 Hours (Table) 12/07/17 12/07/17 Range/Units 09:40 13:55 CK-MB (CK-2) 5.6 H (0.0-2.4) ng/mL Troponin I 0.103 H* (0.000-0.034) ng/mL Urine Protein 2+ H (Negative) Urine Blood Small H (Negative) Ur Leukocyte Esterase Moderate H (Negative) Urine WBC 18 H (0-5) /hpf Hyaline Casts 3 H (0-2) /lpf Urine Mucus Rare H (None) /hpf Microbiology - Last 24 Hours (Table) 12/07/17 01:20 Blood Culture - Preliminary Blood No Growth after 24 hours Assessment and Plan Assessment: Assessment Acute hypoxic respiratory failure Bibasilar infiltrates and pleural effusions Acute exacerbation of congestive heart failure Hypertensive emergency NSTEMI History of multifocal atrial tachycardia Recent RLE DVT Severe persistent asthma Leukocytosis likely secondary to steroids Hyponatremia, fluid overload Mild hyperkalemia Acute kidney injury on chronic kidney disease stage III Obesity, concern for MAIRA, patient has history of MAIRA but declines to wear CPAP Plan Medications reviewed and continued as ordered Continue BiPAP support Supplemental oxygen to maintain oxygen saturations greater than 90% or above Nitroglycerin drip Diuresis Cardiology recommendations Pulmicort and duo nebs Prednisone taper Antibiotics per primary team Incentive spirometry and pulmonary hygiene Daily weights and I/Os Monitor urine output and renal function Continue Singulair and Xolair outpatient Repeat CXR tomorrow Patient will be reeducated on obstructive sleep apnea and congestive heart failure. She will be encouraged to use CPAP. GI and DVT prophylaxis: Eliquis and Protonix We will continue to follow along. I performed an examination of the patient and discussed their management with the nurse practitioner. I have reviewed the nurse practitioner's note and agree with the documented findings and plan of care. <Antonia Jalloh Last Filed: 12/08/17 13:21> Objective - Vital Signs Vital signs: Vital Signs Temp 96.9 F L 12/08/17 12:00 Pulse 84 12/08/17 13:02 Resp 20 12/08/17 12:00 BP 156/96 12/08/17 12:00 Pulse Ox 98 12/08/17 12:00 Intake & Output 12/07/17 12/08/17 12/08/17 18:59 06:59 18:59 Intake Total 240 Output Total 6411 662 9729 Balance -1201 -925 -1060 Weight 120.5 kg 120.5 kg Intake: Oral 240 Output: Urine 7719 833 7058 Post Void Residual 50 Other: Voiding Method Bedpan Indwelling Catheter Indwelling Catheter # Voids 1 - Labs CBC & Chem 7: 12/08/17 12:09 12/08/17 12:09 Labs: Abnormal Lab Results - Last 24 Hours (Table) 12/07/17 12/08/17 12/08/17 Range/Units 13:55 12:09 12:09 WBC 19.0 H (3.8-10.6) k/uL RBC 3.59 L (3.80-5.40) m/uL Hgb 10.6 L (11.4-16.0) gm/dL Hct 33.9 L (34.0-46.0) % Neutrophils # 17.4 H (1.3-7.7) k/uL Lymphocytes # 0.4 L (1.0-4.8) k/uL Carbon Dioxide 31 H (22-30) mmol/L BUN 89 H (7-17) mg/dL Creatinine 1.90 H (0.52-1.04) mg/dL Glucose 170 H (74-99) mg/dL CK-MB (CK-2) 5.6 H (0.0-2.4) ng/mL Troponin I 0.103 H* (0.000-0.034) ng/mL Microbiology - Last 24 Hours (Table) 12/07/17 01:20 Blood Culture - Preliminary Blood No Growth after 24 hours Assessment and Plan Assessment: Patient seen and examined. Patient being placed back on bipap by RT team. patient was taken off for lunch and tolerated well, she did not desaturate, however, she asked to be placed back on for comfort due to shortness of breath. She states she feels much better today than she did yesterday. She denies fevers and chills. Occasional cough. Repeat CXR in AM. Continue diuresis. Nitro drip discontinued. Quick steroid taper. BP improving. ~Antonia Jalloh,
[2017-12-08 12:34] LABS: Basophils # (A) 0.1 k/uL (0-0.2); Basophils % (A) 0 %; Eosinophils % (A) 0 %; HCT 33.9 % (34.0-46.0); HGB 10.6 gm/dL (11.4-16.0); Hypochromasia Slight; Lymphocytes # (A) 0.4 k/uL (1.0-4.8); Lymphocytes % (A) 2 %; MCH 29.6 pg (25.0-35.0); MCHC 31.3 g/dL (31.0-37.0); MCV 94.5 fL (80.0-100.0); Mean Platelet Volume 7.3; Monocytes % (A) 5 %; Neutrophils # (A) 17.4 k/uL (1.3-7.7); Neutrophils % (A) 92 %; Platelet Count 231 k/uL (150-450); RBC 3.59 m/uL (3.80-5.40); RDW 15.2 % (11.5-15.5)
[2017-12-08 12:42] LABS: Calcium 8.4 mg/dL (8.4-10.2); Potassium 4.9 mmol/L (3.5-5.1)
[2017-12-08] MEDS: IPRATROPIUM-ALBUTEROL 3 ML NEB INHALATION SCH ×4 (12:55→19:12)
--- NOTE | 2017-12-08 12:55 | P.PN ---
Subjective 72-year-old female admitted for congestive heart failure chronic diastolic dysfunction with acute exacerbation, patient remained off BiPAP most of the day today. Patient requirements of BiPAP has come down significantly. Patient remains on 80 IV twice a day of Lasix with good urine output. Patient's serum creatinine remained fairly stable. White blood cell count is 19,000 fairly stable, mostly neutrophilic leukocytosis from my systemic steroids. Patient is much more awake. Feeling much better Constitutional: Denied any fatigue denied any fever. Cardio vascular: denied any chest pain, palpitations Gastrointestinal denied any nausea vomiting Pulmonary: significantly improved shortness of breath Neurologic denied any new focal deficits Objective - Vital Signs Vital signs: Vital Signs Temp 96.9 F L 12/08/17 12:00 Pulse 80 12/08/17 12:00 Resp 20 12/08/17 12:00 BP 156/96 12/08/17 12:00 Pulse Ox 98 12/08/17 12:00 Intake & Output 12/07/17 12/08/17 12/08/17 18:59 06:59 18:59 Intake Total 240 Output Total 2654 287 5241 Balance -1201 -925 -1060 Weight 120.5 kg 120.5 kg Intake: Oral 240 Output: Urine 2033 377 5993 Post Void Residual 50 Other: Voiding Method Bedpan Indwelling Catheter Indwelling Catheter # Voids 1 - Exam PHYSICAL EXAMINATION: GENERAL: The patient is alert and oriented x3, not in any acute distress. Well developed, well nourished. HEENT: Pupils are round and equally reacting to light. EOMI. No scleral icterus. No conjunctival pallor. Normocephalic, atraumatic. No pharyngeal erythema. No thyromegaly. CARDIOVASCULAR: S1 and S2 present. No murmurs, rubs, or gallops. Unable to assess JVD PULMONARY: mostly clear to auscultation fairly good air entry into bilateral lung ABDOMEN: Soft, nontender, nondistended, normoactive bowel sounds. No palpable organomegaly. MUSCULOSKELETAL: No joint swelling or deformity. EXTREMITIES: No cyanosis, clubbing, pedal edema improved NEUROLOGICAL: Gross neurological examination did not reveal any focal deficits. SKIN: No rashes. - Labs CBC & Chem 7: 12/08/17 12:09 12/08/17 12:09 Labs: Abnormal Lab Results - Last 24 Hours (Table) 12/07/17 12/08/17 12/08/17 Range/Units 13:55 12:09 12:09 WBC 19.0 H (3.8-10.6) k/uL RBC 3.59 L (3.80-5.40) m/uL Hgb 10.6 L (11.4-16.0) gm/dL Hct 33.9 L (34.0-46.0) % Neutrophils # 17.4 H (1.3-7.7) k/uL Lymphocytes # 0.4 L (1.0-4.8) k/uL Carbon Dioxide 31 H (22-30) mmol/L BUN 89 H (7-17) mg/dL Creatinine 1.90 H (0.52-1.04) mg/dL Glucose 170 H (74-99) mg/dL CK-MB (CK-2) 5.6 H (0.0-2.4) ng/mL Troponin I 0.103 H* (0.000-0.034) ng/mL Microbiology - Last 24 Hours (Table) 12/07/17 01:20 Blood Culture - Preliminary Blood No Growth after 24 hours Assessment and Plan Plan: -Acute hypoxic respiratory failure requiring BiPAP continue with BiPAP wean off as tolerated probably secondary to congestive heart failure chronic diastolic dysfunction with acute exacerbation. 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
[2017-12-08] MEDS: BUDESONIDE 0.5 MG/2 ML NEBU INHALATION SCH (19:12)
[2017-12-08] MEDS: CHOLECALCIFEROL 1,000 UNIT TAB PO SCH (20:11)
[2017-12-08] MEDS: ATORVASTATIN 40 MG TAB PO SCH (20:11)
[2017-12-08] MEDS: MAGNESIUM OXIDE 400 MG TAB PO SCH (20:11)
[2017-12-08] MEDS: AMOXIC-POT CLAV 500-125 MG 1 EACH TAB PO SCH (20:11)
[2017-12-09] MEDS: MORPHINE SULFATE 4 MG/ML SYRINGE IV PRN ×3 (02:12→17:05)
[2017-12-09 06:48] LABS: Calcium 8.6 mg/dL (8.4-10.2); Potassium 4.8 mmol/L (3.5-5.1)
[2017-12-09] MEDS: BUDESONIDE 0.5 MG/2 ML NEBU INHALATION SCH ×2 (08:50→21:13)
[2017-12-09] MEDS: IPRATROPIUM-ALBUTEROL 3 ML NEB INHALATION SCH ×4 (08:50→21:12)
[2017-12-09 09:41] LABS: HGB 10.6 gm/dL (11.4-16.0); Hypochromasia Slight; MCH 29.1 pg (25.0-35.0); MCHC 31.1 g/dL (31.0-37.0); MCV 93.6 fL (80.0-100.0); Mean Platelet Volume 8.2; Platelet Count 249 k/uL (150-450); RBC 3.64 m/uL (3.80-5.40); RDW 15.2 % (11.5-15.5); WBC 20.2 k/uL (3.8-10.6)
[2017-12-09] MEDS: AMMONIUM LACTATE 12% CREAM 140 GM TUBE TOPICAL SCH ×2 (09:54→21:44)
[2017-12-09] MEDS: AMOXIC-POT CLAV 500-125 MG 1 EACH TAB PO SCH ×2 (09:54→21:44)
[2017-12-09] MEDS: DILTIAZEM CD 180 MG CAP.ER.24H PO SCH ×2 (09:55→10:45)
[2017-12-09] MEDS: ARIPiprazole 5 MG TAB PO SCH (09:55)
[2017-12-09] MEDS: APIXABAN 5 MG TAB PO SCH ×2 (09:55→21:43)
[2017-12-09] MEDS: FUROSEMIDE 10 MG/ML 10 ML VIAL IV SCH ×2 (09:56→21:43)
[2017-12-09] MEDS: FAMOTIDINE 20 MG TAB PO SCH (09:56)
[2017-12-09] MEDS: PANTOPRAZOLE 40 MG/10 ML VIAL IV SCH (09:57)
[2017-12-09] MEDS: predniSONE 20 MG TAB PO SCH (09:57)
--- NOTE | 2017-12-09 10:18 | P.PN ---
<Yadi Melton E - Last Filed: 12/09/17 10:15> Subjective Progress Note Date: 12/09/17 History of present illness: This is a 77-year-old female who presented to emergency department from [facility] complaining of worsening shortness of breath. The patient was recently hospitalized at [facility] from 11/26/2017 and discharged on 12/02/2017. The patient was treated for congestive heart failure , acute right lower extremity DVT, multifocal atrial tachycardia. The patient was found by EMS to have moderate to severe respiratory distress, tachypnea. She was also found to have oxygen saturation in the 80s. She did have intermittent chest pressure. She also complained of cough which was nonproductive. On chest x-ray the patient was found to have by basilar infiltrates and pleural effusions. The patient was placed on BiPAP overnight. She appears to be much more comfortable. She states she feels much better with the BiPAP on. In the emergency department the patient was also found to be hypertensive with systolic blood pressures between 190 and 220. The patient was subsequently started on nitroglycerin drip. She was not having any fevers or chills. The patient also has known severe persistent asthma and is on Xolair injections as an outpatient as well as Trelegy inhaler. Interval history: 12/08/2017patient is being seen examined and evaluated today on rounds. She did utilize her BiPAP overnight. She currently is resting up in bed on 4 L of supplemental oxygen via nasal cannula. She feels her breathing is somewhat improving today. She is responding well to her breathing treatments. She continues with diuresis and is on Lasix 80 mg every 12 hours IV. She does continue to have shortness of breath with exertion and activity. Her cough is improving and is nonproductive. She is afebrile no further complaints. In 2017patient is being seen examined and evaluated on rounds. She did utilize her BiPAP overnight. Currently she is resting up in bed on 3 L of supplemental oxygen via nasal cannula. Her nitro drip was turned off. She denies any further chest pain. She has been diuresing well. Continues on Lasix IV. Does have shortness of breath with exertion and activity however is improving. Chest x-ray was obtained and is currently pending this morning. Objective - Vital Signs Vital signs: Vital Signs Temp 98.7 F 12/09/17 08:00 Pulse 76 12/09/17 09:14 Resp 18 12/09/17 08:00 BP 149/69 12/09/17 08:00 Pulse Ox 98 12/09/17 08:00 Intake & Output 12/08/17 12/09/17 12/09/17 18:59 06:59 18:59 Intake Total 480 10 240 Output Total 1300 1575 Balance -820 -1565 240 Weight 120.5 kg 113.9 kg Intake: IV 10 0.9 10 Oral 480 240 Output: Urine 1300 1575 Other: Voiding Method Indwelling Catheter Indwelling Catheter - Exam General: Alert and oriented x 3, Currently comfortable on BiPAP Cardiovascular: Regular rate and rhythm, S1/S2 Lungs: Coarse breath sounds bilaterally with diffuse crackles Abdomen: Soft nontender nondistended positive bowel sounds Extremities: Trace edema - Labs CBC & Chem 7: 12/09/17 05:34 12/09/17 05:34 Labs: Abnormal Lab Results - Last 24 Hours (Table) 12/08/17 12/08/17 12/09/17 Range/Units 12:09 12:09 05:34 WBC 19.0 H (3.8-10.6) k/uL RBC 3.59 L (3.80-5.40) m/uL Hgb 10.6 L (11.4-16.0) gm/dL Hct 33.9 L (34.0-46.0) % Neutrophils # 17.4 H (1.3-7.7) k/uL Lymphocytes # 0.4 L (1.0-4.8) k/uL Chloride 95 L (98-107) mmol/L Carbon Dioxide 31 H 36 H (22-30) mmol/L BUN 89 H 93 H (7-17) mg/dL Creatinine 1.90 H 1.81 H (0.52-1.04) mg/dL Glucose 170 H 112 H (74-99) mg/dL 12/09/17 Range/Units 05:34 WBC 20.2 H (3.8-10.6) k/uL RBC 3.64 L (3.80-5.40) m/uL Hgb 10.6 L (11.4-16.0) gm/dL Hct (34.0-46.0) % Neutrophils # (1.3-7.7) k/uL Lymphocytes # (1.0-4.8) k/uL Chloride (98-107) mmol/L Carbon Dioxide (22-30) mmol/L BUN (7-17) mg/dL Creatinine (0.52-1.04) mg/dL Glucose (74-99) mg/dL Microbiology - Last 24 Hours (Table) 12/07/17 01:20 Blood Culture - Preliminary Blood No Growth after 48 hours Assessment and Plan Assessment: Assessment Acute hypoxic respiratory failure Bibasilar infiltrates and pleural effusions Acute exacerbation of congestive heart failure Hypertensive emergency NSTEMI History of multifocal atrial tachycardia Recent RLE DVT Severe persistent asthma Leukocytosis likely secondary to steroids Hyponatremia, fluid overload Mild hyperkalemia Acute kidney injury on chronic kidney disease stage III Obesity, concern for MAIRA, patient has history of MAIRA but declines to wear CPAP Plan Medications reviewed and continued as ordered Continue BiPAP support Supplemental oxygen to maintain oxygen saturations greater than 90% or above Diuresis Cardiology recommendations Pulmicort and duo nebs Prednisone taper Antibiotics per primary team Incentive spirometry and pulmonary hygiene Daily weights and I/Os Monitor urine output and renal function Continue Singulair and Xolair outpatient Repeat CXR pending Patient will be reeducated on obstructive sleep apnea and congestive heart failure. She will be encouraged to use CPAP. GI and DVT prophylaxis: Eliquis and Protonix We will continue to follow along. I performed an examination of the patient and discussed their management with the nurse practitioner. I have reviewed the nurse practitioner's note and agree with the documented findings and plan of care. <Antonia Jalloh - Last Filed: 12/09/17 11:25> Objective - Vital Signs Vital signs: Vital Signs Temp 98.7 F 12/09/17 08:00 Pulse 76 12/09/17 09:14 Resp 18 12/09/17 08:00 BP 149/69 12/09/17 08:00 Pulse Ox 98 12/09/17 08:00 Intake & Output 12/08/17 12/09/17 12/09/17 18:59 06:59 18:59 Intake Total 480 10 240 Output Total 1300 1575 Balance -820 -1565 240 Weight 120.5 kg 113.9 kg Intake: IV 10 0.9 10 Oral 480 240 Output: Urine 1300 1575 Other: Voiding Method Indwelling Catheter Indwelling Catheter - Labs CBC & Chem 7: 12/09/17 05:34 12/09/17 05:34 Labs: Abnormal Lab Results - Last 24 Hours (Table) 12/08/17 12/08/17 12/09/17 Range/Units 12:09 12:09 05:34 WBC 19.0 H (3.8-10.6) k/uL RBC 3.59 L (3.80-5.40) m/uL Hgb 10.6 L (11.4-16.0) gm/dL Hct 33.9 L (34.0-46.0) % Neutrophils # 17.4 H (1.3-7.7) k/uL Lymphocytes # 0.4 L (1.0-4.8) k/uL Chloride 95 L (98-107) mmol/L Carbon Dioxide 31 H 36 H (22-30) mmol/L BUN 89 H 93 H (7-17) mg/dL Creatinine 1.90 H 1.81 H (0.52-1.04) mg/dL Glucose 170 H 112 H (74-99) mg/dL 12/09/17 Range/Units 05:34 WBC 20.2 H (3.8-10.6) k/uL RBC 3.64 L (3.80-5.40) m/uL Hgb 10.6 L (11.4-16.0) gm/dL Hct (34.0-46.0) % Neutrophils # (1.3-7.7) k/uL Lymphocytes # (1.0-4.8) k/uL Chloride (98-107) mmol/L Carbon Dioxide (22-30) mmol/L BUN (7-17) mg/dL Creatinine (0.52-1.04) mg/dL Glucose (74-99) mg/dL Microbiology - Last 24 Hours (Table) 12/07/17 01:20 Blood Culture - Preliminary Blood No Growth after 48 hours Assessment and Plan Assessment: Patient seen and examined. Patient is sitting up in the chair on 3L NC. She states she is feeling better, but her breathing still isn't good. CXR is reviewed from this AM. It does show improving bibasilar infiltrates, likely bilateral pleural effusions, will check US chest today. Prednisone taper. Continue diuresis, monitor renal function. ~Antonia Jalloh, DO
--- NOTE | 2017-12-09 11:48 | P.PN ---
Subjective 72-year-old female admitted for congestive heart failure chronic diastolic dysfunction with acute exacerbation, patient remained off BiPAP most of the day today. Patient requirements of BiPAP has come down significantly. Patient remains on 80 IV twice a day of Lasix with good urine output. Patient's serum creatinine remained fairly stable. White blood cell count is 19,000 fairly stable, mostly neutrophilic leukocytosis from my systemic steroids. Patient is much more awake. Feeling much better 12/09/2017 Significantly improved shortness of breath. Patient is presently on 3 L of oxygen tolerating well improved pulmonary edema remains on IV Lasix. Creatinine remained fairly stable patient does have chronic kidney disease stage III Constitutional: Denied any fatigue denied any fever. Cardio vascular: denied any chest pain, palpitations Gastrointestinal denied any nausea vomiting Pulmonary: significantly improved shortness of breath Neurologic denied any new focal deficits Objective - Vital Signs Vital signs: Vital Signs Temp 98.7 F 12/09/17 08:00 Pulse 76 12/09/17 09:14 Resp 18 12/09/17 08:00 BP 149/69 12/09/17 08:00 Pulse Ox 98 12/09/17 08:00 Intake & Output 12/08/17 12/09/17 12/09/17 18:59 06:59 18:59 Intake Total 480 10 240 Output Total 1300 1575 Balance -820 -1565 240 Weight 120.5 kg 113.9 kg Intake: IV 10 0.9 10 Oral 480 240 Output: Urine 1300 1575 Other: Voiding Method Indwelling Catheter Indwelling Catheter - Exam PHYSICAL EXAMINATION: GENERAL: The patient is alert and oriented x3, not in any acute distress. Well developed, well nourished. HEENT: Pupils are round and equally reacting to light. EOMI. No scleral icterus. No conjunctival pallor. Normocephalic, atraumatic. No pharyngeal erythema. No thyromegaly. CARDIOVASCULAR: S1 and S2 present. No murmurs, rubs, or gallops. Unable to assess JVD PULMONARY: mostly clear to auscultation fairly good air entry into bilateral lung ABDOMEN: Soft, nontender, nondistended, normoactive bowel sounds. No palpable organomegaly. MUSCULOSKELETAL: No joint swelling or deformity. EXTREMITIES: No cyanosis, clubbing, pedal edema improved NEUROLOGICAL: Gross neurological examination did not reveal any focal deficits. SKIN: No rashes. - Labs CBC & Chem 7: 09/27/18 05:34 12/09/17 05:34 Labs: Abnormal Lab Results - Last 24 Hours (Table) 12/08/17 12/08/17 12/09/17 Range/Units 12:09 12:09 05:34 WBC 19.0 H (3.8-10.6) k/uL RBC 3.59 L (3.80-5.40) m/uL Hgb 10.6 L (11.4-16.0) gm/dL Hct 33.9 L (34.0-46.0) % Neutrophils # 17.4 H (1.3-7.7) k/uL Lymphocytes # 0.4 L (1.0-4.8) k/uL Chloride 95 L (98-107) mmol/L Carbon Dioxide 31 H 36 H (22-30) mmol/L BUN 89 H 93 H (7-17) mg/dL Creatinine 1.90 H 1.81 H (0.52-1.04) mg/dL Glucose 170 H 112 H (74-99) mg/dL 12/09/17 Range/Units 05:34 WBC 20.2 H (3.8-10.6) k/uL RBC 3.64 L (3.80-5.40) m/uL Hgb 10.6 L (11.4-16.0) gm/dL Hct (34.0-46.0) % Neutrophils # (1.3-7.7) k/uL Lymphocytes # (1.0-4.8) k/uL Chloride (98-107) mmol/L Carbon Dioxide (22-30) mmol/L BUN (7-17) mg/dL Creatinine (0.52-1.04) mg/dL Glucose (74-99) mg/dL Microbiology - Last 24 Hours (Table) 12/07/17 01:20 Blood Culture - Preliminary Blood No Growth after 48 hours Assessment and Plan Plan: -Acute hypoxic respiratory failure requiring BiPAP on admission and is presently on 3 L significantly improved respiratory status. secondary to congestive heart failure chronic diastolic dysfunction with acute exacerbation. 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
--- NOTE | 2017-12-09 12:27 | XR ---
EXAMINATION TYPE: XR chest 2V DATE OF EXAM: 12/09/2017 COMPARISON: 12/07/2017 HISTORY: 77 year-old female shortness of breath TECHNIQUE: Frontal and lateral views FINDINGS: Heart mildly enlarged. Moderate bilateral pleural effusions with bibasilar opacities and interstitial prominence. Aeration maybe slightly to the mid lungs. IMPRESSION: Mild cardiomegaly with moderate-sized pleural effusions and adjacent atelectasis and/or consolidation . Correlate for CHF as an etiology. Aeration may be slightly improved at the midlungs.
--- NOTE | 2017-12-09 13:42 | P.PN ---
Subjective Progress Note Date: 12/09/17 This is a 77-year-old female with history of COPD, sleep apnea, hypertension, obesity, renal insufficiency, fibromyalgia, GERD, prior TIA, who presented to the hospital from [facility] with symptoms of progressively worsening shortness of breath, she also states that she had can peripheral edema. Positive PND and orthopnea she was recently in [facility] earlier this month, seen in consultation at that time by Dr. Brady, admitted at that time with congestive heart failure. We're also asked to see her at [facility] because of what was initially felt to be A. fib. Dr. Brady reviewed EKGs and felt that the patient had episodes of multifocal atrial tachycardia. She did have an echocardiogram with Doppler study performed while there which revealed an ejection fraction of 55-60% moderate to severe mitral stenosis. She also had a VQ scan performed there which was low probability for pulmonary embolism. Chest x-ray performed on arrival here revealed new pulmonary infiltrates and pleural fluid as compared with prior exam. EKG shows normal sinus rhythm with frequent PVCs. Blood pressure 146/70 with a heart rate in the 70s, temperature 97.3 she is 96% on BiPAP. White blood cell count 20.0, hemoglobin 10.8, platelet count 277. Sodium 135, potassium 5.4, BUN 80, creatinine 1.8. BNP level 8990. Troponins 0.11, 0.11, 0.10. At the time of my examination this morning she does state that her breathing has improved significantly from admission here. She states also that while at [place] for several days she was unable to urinate, when finally a catheter in place and she felt significantly better. 12/09/2017 seen and examined this morning, breathing significantly improved overall. Continues to be on IV Lasix. Sodium 137, potassium 4.8, BUN 93, creatinine 1.8. White blood cell count 20.2 with hemoglobin of 10.6. Objective - Vital Signs Vital signs: Vital Signs Temp 98.5 F 12/09/17 11:00 Pulse 76 12/09/17 12:13 Resp 22 12/09/17 11:00 BP 145/74 12/09/17 11:00 Pulse Ox 97 12/09/17 11:00 Intake & Output 12/08/17 12/09/17 12/09/17 18:59 06:59 18:59 Intake Total 480 10 480 Output Total 1300 1575 2300 Balance -821 -7402 -9638 Weight 120.5 kg 113.9 kg Intake: IV 10 0.9 10 Oral 480 480 Output: Urine 1300 1575 2300 Uretheral (Blevins) 900 Other: Voiding Method Indwelling Catheter Indwelling Catheter - Exam PHYSICAL EXAMINATION: GENERAL: 77-year-old female in no acute distress at the time of my examination HEENT: Head is atraumatic, normocephalic. Pupils equal, round. Sclera anicteric. Conjunctiva are clear. Mucous membranes of the mouth are moist. Neck is supple. Unable to assess jugular venous pressure. No carotid bruit is heard. HEART EXAMINATION: Heart S1, S2 normal. No murmur or gallop heard. CHEST EXAMINATION: Lungs are clear with mild diminished air entry to the bases. ABDOMEN: Soft, obese,nontender. Bowel sounds are heard. No organomegaly noted. EXTREMITIES: 2+ peripheral pulses with evidence of peripheral edema and no calf tenderness noted. NEUROLOGIC patient is awake, alert and oriented X3. . - Labs CBC & Chem 7: 12/09/17 05:34 12/09/17 05:34 Labs: Abnormal Lab Results - Last 24 Hours (Table) 12/09/17 12/09/17 Range/Units 05:34 05:34 WBC 20.2 H (3.8-10.6) k/uL RBC 3.64 L (3.80-5.40) m/uL Hgb 10.6 L (11.4-16.0) gm/dL Chloride 95 L (98-107) mmol/L Carbon Dioxide 36 H (22-30) mmol/L BUN 93 H (7-17) mg/dL Creatinine 1.81 H (0.52-1.04) mg/dL Glucose 112 H (74-99) mg/dL Microbiology - Last 24 Hours (Table) 12/07/17 01:20 Blood Culture - Preliminary Blood No Growth after 48 hours Assessment and Plan Plan: Assessment and plan #1 diastolic congestive heart failure acute on chronic, BNP level 8990 #2 possible pneumonia #3 COPD #4 history of multifocal atrial tachycardia, on Cardizem #5 hypertension #6 prior TIA #7 acute on chronic renal failure #8 abnormal troponins, not consistent with acute coronary syndrome, likely secondary to abnormal renal function. Plan Patient had an echocardiogram with Doppler study performed earlier this month at [facility] which revealed a normal left ventricular systolic function with evidence of moderate to severe mitral stenosis. We would recommend to continue current dose of IV Lasix, continue to monitor intake and output along with daily weights daily lytes BUN and creatinine. DNP note has been reviewed, I agree with a documented findings and plan of care. Patient was seen and examined.
--- NOTE | 2017-12-09 15:32 | US ---
EXAMINATION TYPE: US chest DATE OF EXAM: 12/09/2017 COMPARISON: Chest x-ray 12/09/2017 CLINICAL HISTORY: 77-year-old female bilateral pleural effusions, sean for thoracentesis. TECHNIQUE: Targeted ultrasound of the posterior lower bilateral hemithoraces FINDINGS: EXAM MEASUREMENTS: Right Pleural Effusion pocket size: 7.3 cm Right skin surface to fluid distance: 3.4 cm Left Pleural Effusion pocket size: 4.4 cm Left skin surface to fluid distance: 4.5 cm Right side marked for possible thoracentesis outside the dept. Left side marked for possible thoracentesis outside the dept. Pulmonologists are able to review the images in the patient?s EMR. IMPRESSIONS: Moderate right and small to moderate left pleural effusions with markings performed.
[2017-12-09] MEDS: CHOLECALCIFEROL 1,000 UNIT TAB PO SCH (21:43)
[2017-12-09] MEDS: ATORVASTATIN 40 MG TAB PO SCH (21:43)
[2017-12-09] MEDS: MAGNESIUM OXIDE 400 MG TAB PO SCH (21:43)
[2017-12-10] MEDS: PANTOPRAZOLE 40 MG TABLET PO SCH (06:17)
[2017-12-10 06:27] LABS: Potassium 4.6 mmol/L (3.5-5.1)
[2017-12-10] MEDS: BUDESONIDE 0.5 MG/2 ML NEBU INHALATION SCH ×2 (07:58→19:58)
[2017-12-10] MEDS: IPRATROPIUM-ALBUTEROL 3 ML NEB INHALATION SCH ×4 (07:58→19:57)
[2017-12-10] MEDS: FUROSEMIDE 10 MG/ML 10 ML VIAL IV SCH ×2 (09:17→21:42)
[2017-12-10] MEDS: ARIPiprazole 5 MG TAB PO SCH (09:25)
[2017-12-10] MEDS: DILTIAZEM CD 180 MG CAP.ER.24H PO SCH (09:25)
[2017-12-10] MEDS: AMOXIC-POT CLAV 500-125 MG 1 EACH TAB PO SCH (09:25)
[2017-12-10] MEDS: FAMOTIDINE 20 MG TAB PO SCH (09:25)
[2017-12-10] MEDS: APIXABAN 5 MG TAB PO SCH ×2 (09:25→21:43)
[2017-12-10] MEDS: predniSONE 20 MG TAB PO SCH (09:25)
[2017-12-10] MEDS: AMMONIUM LACTATE 12% CREAM 140 GM TUBE TOPICAL SCH (09:49)
--- NOTE | 2017-12-10 10:30 | P.PN ---
<Yadi Melton E - Last Filed: 12/10/17 10:25> Subjective Progress Note Date: 12/10/17 History of present illness: This is a 77-year-old female who presented to emergency department from [facility] complaining of worsening shortness of breath. The patient was recently hospitalized at [facility] from 11/26/2017 and discharged on 12/02/2017. The patient was treated for congestive heart failure , acute right lower extremity DVT, multifocal atrial tachycardia. The patient was found by EMS to have moderate to severe respiratory distress, tachypnea. She was also found to have oxygen saturation in the 80s. She did have intermittent chest pressure. She also complained of cough which was nonproductive. On chest x-ray the patient was found to have by basilar infiltrates and pleural effusions. The patient was placed on BiPAP overnight. She appears to be much more comfortable. She states she feels much better with the BiPAP on. In the emergency department the patient was also found to be hypertensive with systolic blood pressures between 190 and 220. The patient was subsequently started on nitroglycerin drip. She was not having any fevers or chills. The patient also has known severe persistent asthma and is on Xolair injections as an outpatient as well as Trelegy inhaler. Interval history: 12/08/2017patient is being seen examined and evaluated today on rounds. She did utilize her BiPAP overnight. She currently is resting up in bed on 4 L of supplemental oxygen via nasal cannula. She feels her breathing is somewhat improving today. She is responding well to her breathing treatments. She continues with diuresis and is on Lasix 80 mg every 12 hours IV. She does continue to have shortness of breath with exertion and activity. Her cough is improving and is nonproductive. She is afebrile no further complaints. 12/09/2017patient is being seen examined and evaluated on rounds. She did utilize her BiPAP overnight. Currently she is resting up in bed on 3 L of supplemental oxygen via nasal cannula. Her nitro drip was turned off. She denies any further chest pain. She has been diuresing well. Continues on Lasix IV. Does have shortness of breath with exertion and activity however is improving. Chest x-ray was obtained and is currently pending this morning. 12/10/17- patient is being seen examined and evaluated today on rounds. She did utilize the BiPAP overnight. Currently she is resting up in bedside chair taking a nap. She continues on 4 L of supplemental oxygen via nasal cannula. She continues to have shortness of breath with cough and congestion. She does have a Blevins catheter and is diuresing well. The patient did undergo an ultrasound of the chest which did reveal a right-sided pleural effusion of 7.3 and a left-sided pleural effusion of 4.4. The patient is on Eliquis. We will hold the Eliquis on Wednesday and Wednesday and do a thoracentesis on Wednesday. While her Eliquis is being held we will put the patient on subcu heparin. Objective - Vital Signs Vital signs: Vital Signs Temp 97.8 F 12/10/17 07:47 Pulse 70 12/10/17 10:11 Resp 19 12/10/17 10:11 BP 134/74 12/10/17 07:47 Pulse Ox 96 12/10/17 10:11 Intake & Output 12/09/17 12/10/17 12/10/17 18:59 06:59 18:59 Intake Total 840 240 660 Output Total 3050 1000 1800 Balance -2210 -760 -1140 Weight 114.3 kg Intake: Oral 840 240 660 Output: Urine 3050 1000 1800 Uretheral (Blevins) 1650 Other: Voiding Method Indwelling Catheter Indwelling Catheter Indwelling Catheter # Voids 0 - Exam General: Alert and oriented x 3, Currently comfortable on BiPAP Cardiovascular: Regular rate and rhythm, S1/S2 Lungs: Coarse breath sounds bilaterally with diffuse crackles Abdomen: Soft nontender nondistended positive bowel sounds Extremities: Trace edema - Labs CBC & Chem 7: 12/09/17 05:34 12/10/17 05:52 Labs: Abnormal Lab Results - Last 24 Hours (Table) 12/10/17 Range/Units 05:52 Sodium 134 L (137-145) mmol/L Chloride 91 L (98-107) mmol/L Carbon Dioxide 37 H (22-30) mmol/L BUN 93 H (7-17) mg/dL Creatinine 1.41 H (0.52-1.04) mg/dL Glucose 117 H (74-99) mg/dL Calcium 8.0 L (8.4-10.2) mg/dL Microbiology - Last 24 Hours (Table) 12/07/17 01:20 Blood Culture - Preliminary Blood No Growth after 72 hours Assessment and Plan Assessment: Assessment Acute hypoxic respiratory failure Bibasilar infiltrates and pleural effusions Acute exacerbation of congestive heart failure Hypertensive emergency NSTEMI History of multifocal atrial tachycardia Recent RLE DVT Severe persistent asthma Leukocytosis likely secondary to steroids Hyponatremia, fluid overload Mild hyperkalemia Acute kidney injury on chronic kidney disease stage III Obesity, concern for MAIRA, patient has history of MAIRA but declines to wear CPAP Plan Medications reviewed and continued as ordered We will hold the patient's Eliquis on Wednesday and Wednesday plan for thoracentesis on Wednesday Patient should be off of her Eliquis for 48 hours before thoracentesis While Eliquis is on hold patient will be put on subcu heparin Continue BiPAP support Supplemental oxygen to maintain oxygen saturations greater than 90% or above Diuresis Cardiology recommendations Pulmicort and duo nebs Prednisone taper Antibiotics per primary team Incentive spirometry and pulmonary hygiene Daily weights and I/Os Monitor urine output and renal function Continue Singulair and Xolair outpatient Repeat CXR pending Patient will be reeducated on obstructive sleep apnea and congestive heart failure. She will be encouraged to use CPAP. GI and DVT prophylaxis: Eliquis and Protonix We will continue to follow along. I performed an examination of the patient and discussed their management with the nurse practitioner. I have reviewed the nurse practitioner's note and agree with the documented findings and plan of care. <Antonia Jalloh A - Last Filed: 12/10/17 14:11> Objective - Vital Signs Vital signs: Vital Signs Temp 97.9 F 12/10/17 11:00 Pulse 60 12/10/17 12:19 Resp 18 12/10/17 12:19 BP 92/52 12/10/17 11:00 Pulse Ox 93 L 12/10/17 11:00 Intake & Output 12/09/17 12/10/17 12/10/17 18:59 06:59 18:59 Intake Total 840 240 900 Output Total 3050 1000 1800 Balance -2210 -760 -900 Weight 114.3 kg 114.3 kg Intake: Oral 840 240 900 Output: Urine 3050 1000 1800 Uretheral (Blevins) 1650 Other: Voiding Method Indwelling Catheter Indwelling Catheter Indwelling Catheter # Voids 0 - Labs CBC & Chem 7: 12/09/17 05:34 12/10/17 05:52 Labs: Abnormal Lab Results - Last 24 Hours (Table) 12/10/17 Range/Units 05:52 Sodium 134 L (137-145) mmol/L Chloride 91 L (98-107) mmol/L Carbon Dioxide 37 H (22-30) mmol/L BUN 93 H (7-17) mg/dL Creatinine 1.41 H (0.52-1.04) mg/dL Glucose 117 H (74-99) mg/dL Calcium 8.0 L (8.4-10.2) mg/dL Microbiology - Last 24 Hours (Table) 12/07/17 01:20 Blood Culture - Preliminary Blood No Growth after 72 hours Assessment and Plan Assessment: Patient seen and examined. Patient states she doesnt feel as well today. She is a little more short of breath. She is declining the bipap at this time. She is not in distress. She says she wants to take a nap. Will plan for right thoracentesis, Eliquis needs to be on hold. Will order subcu heparin for now. Repeat CXR Wednesday morning. Continue diuresis. Prednisone taper. ~Antonia Jalloh DO
[2017-12-10] MEDS: traMADol 50 MG TAB PO PRN ×2 (10:36→21:44)
--- NOTE | 2017-12-10 14:08 | CDI ---
Last Revision, February 2017 Documentation Clarification Form Date: 12/10/2017 1:59:00 PM From: Beatriz Jordan RN, CCDS Admit Date: 12/07/2017 2:48:00 AM Patient Name: Yulissa Arana Visit Number: [id number] ATTENTION: The Clinical Documentation Specialists (CDI) and [facility] Coding Staff appreciate your assistance in clarifying documentation. Please respond to the clarification below the line at the bottom and electronically sign. The CDI & [facility] Coding staff will review the response and follow-up if needed. Please note: Queries are made part of the Legal Health Record. If you have any questions, please contact the author of this message via ITS. Dominique Hdz MD A low Hgb and Hct lacks specificity to accurately reflect your patients severity of condition and clarification is needed. History/Risk Factors: increasing SOB, A/C diastolic CHF, COPD, Atrial Fib, Asthma, GERD, HTN Clinical indicators: Hemoglobin: 10.8/10.6 Hematocrit: 34.7/33.9 Treatment: monitoring labs In order to capture the severity of condition, please clarify the significance of the above lab results with diagnosis type of and etiology if known: Acute blood loss anemia Acute on chronic blood loss anemia Chronic blood loss anemia Iron deficiency anemia Anemia of chronic disease Drug induced anemia Anemia due to malignancy Nutritional anemia Anemia of chronic kidney disease Unable to determine Other, please specify Please continue to document in your progress notes and discharge summary in order to capture severity of illness and risk of mortality. Include clinical findings that support your diagnosis. Unable to determine MTDD
--- NOTE | 2017-12-10 17:20 | P.PN ---
Subjective 72-year-old female admitted for congestive heart failure chronic diastolic dysfunction with acute exacerbation, patient remained off BiPAP most of the day today. Patient requirements of BiPAP has come down significantly. Patient remains on 80 IV twice a day of Lasix with good urine output. Patient's serum creatinine remained fairly stable. White blood cell count is 19,000 fairly stable, mostly neutrophilic leukocytosis from my systemic steroids. Patient is much more awake. Feeling much better 12/09/2017 Significantly improved shortness of breath. Patient is presently on 3 L of oxygen tolerating well improved pulmonary edema remains on IV Lasix. Creatinine remained fairly stable patient does have chronic kidney disease stage III 12/02/1817 This is a pleasant 77 years old lady who presents with acute on chronic CHF exacerbation, associated with moderate to severe mitral stenosis. Associated with bilateral pleural effusion, right more than left and she's been treated with diuresis and BiPAP since admission, with some improvement. Patient has been evaluated by pulmonary team and the plan for thoracocentesis on the right side, with holding Eliquis. Patient was placed on heparin during this time as per pulmonary team. we will discuss it with the pulmonary team and review their recommendation. Patient currently still on Eliquis. Patient has recent history of left leg DVT about 2 weeks ago as per patient. Also we lowered the dose of prednisone on admission from 40 mg to 30 mg starting from 12/10/2017 Her creatinine on admission 1.9 and improved to 1.4. Patient is also on Augmentin and statin. She is taken Lasix 80 mg twice a day and that helped her breathing. i discussed with the pt that holding her eluquis will put her at higher risk of recurrent DVT and/or PE which can be fatal. Patient verbalized understanding and she agreed with this plan. I think This plan has more benefits the risks Vitals checked looks his stable and currently blood pressure 134/67 and heart rate at 60 CONSTITUTIONAL: No fever, no malaise, no fatigue. HEENT: No recent visual problems or hearing problems. Denied any sore throat. CARDIOVASCULAR: No orthopnea, PND, no palpitations, no syncope. PULMONARY: No shortness of breath, no cough, no hemoptysis. GASTROINTESTINAL: No diarrhea, no nausea, no vomiting, no abdominal pain. Normoactive bowel sounds. NEUROLOGICAL: No headaches, no weakness, no numbness. HEMATOLOGICAL: Denies any bleeding or petechiae. GENITOURINARY: Denies any burning micturition, frequency, or urgency. MUSCULOSKELETAL/RHEUMATOLOGICAL: Denies any joint pain, swelling, or any muscle pain. ENDOCRINE: Denies any polyuria or polydipsia. Dictation review his with dosages and include: Tylenol 650 mg, albuterol 2.5 mg , Augmentin 875-125 mg, Eliquis 5 mg, Abilify 5 mg, Lipitor 40 mg, Pulmicort 0.5 mg, vitamin D 2000 units, Cardizem 360 mg, Pepcid 20 mg, Lasix 80 mg, heparin 5000 unit, lactic acid, magnesium oxide 400 mg, morphine sulfate 4 mg, Protonix 40 mg, prednisone 30 mg, Ultram 50 mg. Objective - Vital Signs Vital signs: Vital Signs Temp 97.9 F 12/10/17 11:00 Pulse 60 12/10/17 12:19 Resp 18 12/10/17 12:19 BP 92/52 12/10/17 11:00 Pulse Ox 93 L 12/10/17 11:00 Intake & Output 12/09/17 12/10/17 12/10/17 18:59 06:59 18:59 Intake Total 840 240 900 Output Total 3050 1000 1800 Balance -2210 -760 -900 Weight 114.3 kg 114.3 kg Intake: Oral 840 240 900 Output: Urine 3050 1000 1800 Uretheral (Blevins) 1650 Other: Voiding Method Indwelling Catheter Indwelling Catheter Indwelling Catheter # Voids 0 - Exam GENERAL: The patient is alert and oriented x3, not in any acute distress. Well developed, well nourished. HEENT: Pupils are round and equally reacting to light. EOMI. No scleral icterus. No conjunctival pallor. Normocephalic, atraumatic. No pharyngeal erythema. No thyromegaly. CARDIOVASCULAR: S1 and S2 present. No murmurs, rubs, or gallops. -PULMONARY: Chest is clear to auscultation, bilateral scattered crackles. Decreased breath sounds ABDOMEN: Soft, nontender, nondistended, normoactive bowel sounds. No palpable organomegaly. MUSCULOSKELETAL: No joint swelling or deformity. EXTREMITIES: No cyanosis, clubbing,. 2+ Bilateral pedal edema. NEUROLOGICAL: Gross neurological examination did not reveal any focal deficits. SKIN: No rashes. - Labs CBC & Chem 7: 12/09/17 05:34 12/10/17 05:52 Labs: Abnormal Lab Results - Last 24 Hours (Table) 12/10/17 Range/Units 05:52 Sodium 134 L (137-145) mmol/L Chloride 91 L (98-107) mmol/L Carbon Dioxide 37 H (22-30) mmol/L BUN 93 H (7-17) mg/dL Creatinine 1.41 H (0.52-1.04) mg/dL Glucose 117 H (74-99) mg/dL Calcium 8.0 L (8.4-10.2) mg/dL Microbiology - Last 24 Hours (Table) 12/07/17 01:20 Blood Culture - Preliminary Blood No Growth after 72 hours Assessment and Plan Plan: -Acute hypoxic respiratory failure requiring BiPAP on admission and is presently on 3 L significantly improved respiratory status. secondary to congestive heart failure chronic diastolic dysfunction with acute exacerbation. 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
[2017-12-10] MEDS: CHOLECALCIFEROL 1,000 UNIT TAB PO SCH (21:42)
[2017-12-10] MEDS: ATORVASTATIN 40 MG TAB PO SCH (21:42)
[2017-12-10] MEDS: MAGNESIUM OXIDE 400 MG TAB PO SCH (21:42)
[2017-12-10] MEDS: AMOXIC-POT CLAV 875-125MG 1 EACH TAB PO SCH (21:44)
[2017-12-11] MEDS: HEPARIN SODIUM,PORCINE 5,000 UNIT/ML 1 ML VIAL SQ SCH ×4 (00:30→22:59)
[2017-12-11 06:34] LABS: Basophils % (A) 0 %; Eosinophils % (A) 0 %; HCT 35.8 % (34.0-46.0); Hypochromasia Slight; Lymphocytes # (A) 0.7 k/uL (1.0-4.8); Lymphocytes % (A) 4 %; MCH 28.7 pg (25.0-35.0); MCHC 30.6 g/dL (31.0-37.0); MCV 93.6 fL (80.0-100.0); Monocytes # (A) 0.8 k/uL (0-1.0); Monocytes % (A) 5 %; Neutrophils # (A) 13.9 k/uL (1.3-7.7); Neutrophils % (A) 89 %; Platelet Count 197 k/uL (150-450); RBC 3.83 m/uL (3.80-5.40); RDW 15.2 % (11.5-15.5); WBC 15.6 k/uL (3.8-10.6)
[2017-12-11] MEDS: AMMONIUM LACTATE 12% CREAM 140 GM TUBE TOPICAL SCH ×3 (06:34→20:35)
[2017-12-11] MEDS: PANTOPRAZOLE 40 MG TABLET PO SCH (06:35)
[2017-12-11 06:47] LABS: Calcium 8.7 mg/dL (8.4-10.2)
[2017-12-11 07:01] LABS: Potassium 6.3 mmol/L (3.5-5.1)
[2017-12-11] MEDS: IPRATROPIUM-ALBUTEROL 3 ML NEB INHALATION SCH ×4 (07:53→19:39)
[2017-12-11] MEDS: BUDESONIDE 0.5 MG/2 ML NEBU INHALATION SCH ×2 (07:53→19:39)
[2017-12-11] MEDS: ARIPiprazole 5 MG TAB PO SCH (08:59)
[2017-12-11] MEDS: AMOXIC-POT CLAV 875-125MG 1 EACH TAB PO SCH ×2 (08:59→20:34)
[2017-12-11] MEDS: DILTIAZEM CD 180 MG CAP.ER.24H PO SCH (09:00)
[2017-12-11] MEDS: predniSONE 10 MG TAB PO SCH (09:00)
[2017-12-11] MEDS: FAMOTIDINE 20 MG TAB PO SCH (09:00)
[2017-12-11] MEDS: FUROSEMIDE 10 MG/ML 10 ML VIAL IV SCH ×2 (09:01→20:34)
--- NOTE | 2017-12-11 14:01 | PN ---
PROGRESS NOTE DATE OF SERVICE: 12/11/2017 She has been hemodynamically stable. She is less short of breath. On physical examination, her vital signs are stable. She is afebrile. Her chest is relatively clear. Cardiovascular system is S1, S2. Abdomen is soft. There is no edema. IMPRESSION: 1. Congestive heart failure. 2. Recent right lower extremity deep venous thrombosis. 3. Acute kidney injury. 4. Pleural effusion. Continue Eliquis, Pulmicort, DuoNeb, taper prednisone, increase her activity level. Depending on how she does, we shall make further changes to her care. MMODL / IJN: [id number] /
--- NOTE | 2017-12-11 17:16 | P.PN ---
Subjective Progress Note Date: 12/11/17 Principal diagnosis: Acute exacerbation of CHF Mr. Pugh is a 72-year-old female with a past medical history of congestive heart failure admitted to the hospital for difficulty in breathing. She is currently being with IV Lasix. Patient had a chest x-ray showing bilateral pleural effusion and right more than left so pulmonary team has been consulted and plan is to get thoracocentesis on Wednesday. Today the patient is sitting up in a chair by the bedside appears to be no acute distress. No acute overnight events reported by nursing staff. On review of systems: CONSTITUTIONAL: No fever, no malaise, no fatigue. HEENT: No visual problems or hearing problems. Denied any sore throat. CARDIOVASCULAR: Positive for orthopnea, no palpitations, no syncope. PULMONARY: Positive for shortness of breath but improving, no cough, no hemoptysis. GASTROINTESTINAL: No diarrhea, no nausea, no vomiting, no abdominal pain. Normoactive bowel sounds. NEUROLOGICAL: No headaches, no weakness, no numbness. Patient's medications have been reviewed: Tylenol 650 mg, albuterol 2.5 mg, Augmentin 875-125 mg, Eliquis 5 mg, Abilify 5 mg, Lipitor 40 mg, Pulmicort 0.5 mg, vitamin D 2000 units, Cardizem 360 mg, Pepcid 20 mg, Lasix 80 mg, heparin 5000 unit, lactic acid, magnesium oxide 400 mg, morphine sulfate 4 mg, Protonix 40 mg, prednisone 30 mg, Ultram 50 mg. Objective - Vital Signs Vital signs: Vital Signs Temp 96.8 F L 12/11/17 08:00 Pulse 84 12/11/17 15:57 Resp 18 12/11/17 12:00 BP 129/74 12/11/17 12:00 Pulse Ox 95 12/11/17 12:00 Intake & Output 12/10/17 12/11/17 12/11/17 18:59 06:59 18:59 Intake Total 1260 360 Output Total 2600 2400 1000 Balance -1340 -2400 -640 Weight 114.3 kg 117.027 kg Intake: Oral 1260 360 Output: Urine 2600 2400 1000 Other: Voiding Method Indwelling Catheter Indwelling Catheter # Voids 0 0 - Exam GENERAL: The patient is alert and oriented x3, not in any acute distress. Well developed, well nourished. HEENT: Pupils are round and equally reacting to light. EOMI. No scleral icterus. No conjunctival pallor. Normocephalic, atraumatic. No pharyngeal erythema. No thyromegaly. CARDIOVASCULAR: S1 and S2 present. No murmurs, rubs, or gallops. -PULMONARY: Chest is clear to auscultation, bilateral scattered crackles. Decreased breath sounds ABDOMEN: Soft, nontender, nondistended, normoactive bowel sounds. No palpable organomegaly. MUSCULOSKELETAL: No joint swelling or deformity. EXTREMITIES: No cyanosis, clubbing,. 2+ Bilateral pedal edema. NEUROLOGICAL: Gross neurological examination did not reveal any focal deficits. SKIN: No rashes. - Labs CBC & Chem 7: 12/11/17 06:00 12/11/17 06:00 Labs: Abnormal Lab Results - Last 24 Hours (Table) 12/11/17 12/11/17 Range/Units 06:00 06:00 WBC 15.6 H (3.8-10.6) k/uL Hgb 11.0 L (11.4-16.0) gm/dL MCHC 30.6 L (31.0-37.0) g/dL Neutrophils # 13.9 H (1.3-7.7) k/uL Lymphocytes # 0.7 L (1.0-4.8) k/uL Sodium 135 L (137-145) mmol/L Potassium 6.3 H* (3.5-5.1) mmol/L Chloride 89 L (98-107) mmol/L Carbon Dioxide 42 H* (22-30) mmol/L BUN 91 H (7-17) mg/dL Creatinine 1.62 H (0.52-1.04) mg/dL Glucose 115 H (74-99) mg/dL Microbiology - Last 24 Hours (Table) 12/07/17 01:20 Blood Culture - Preliminary Blood No Growth after 96 hours Assessment and Plan Assessment: ASSESSMENT -Acute hypoxic respiratory failure requiring BiPAP on admission secondary to congestive heart failure -Chronic diastolic dysfunction with acute exacerbation - Mod to Severe Mitral valve stenosis as per recent Echo at [facility] -Chronic kidney disease stage 3 secondary to 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 Pulmonary on board and planning for thoracentesis on Wednesday for which Eliquis has been on hold as per pulmonary recommendations. Discussed the risks of holding off Eliquis with the patient as she had a recent diagnosis of DVT. Continue with Augmentin for mild COPD exacerbation. Continue with the rest of her medication regimen. Further admonitions to follow depending on the progress of the patient. Overall prognosis is guarded. Time with Patient: Greater than 30
[2017-12-11] MEDS: ATORVASTATIN 40 MG TAB PO SCH (20:33)
[2017-12-11] MEDS: CHOLECALCIFEROL 1,000 UNIT TAB PO SCH (20:33)
[2017-12-11] MEDS: MAGNESIUM OXIDE 400 MG TAB PO SCH (20:34)
[2017-12-11] MEDS: traMADol 50 MG TAB PO PRN (20:44)
[2017-12-11] MEDS: ACETAMINOPHEN TAB 325 MG TAB PO PRN (23:11)
[2017-12-12] MEDS: PANTOPRAZOLE 40 MG TABLET PO SCH (06:36)
[2017-12-12 06:55] LABS: Calcium 8.1 mg/dL (8.4-10.2); Potassium 5.2 mmol/L (3.5-5.1)
[2017-12-12] MEDS: BUDESONIDE 0.5 MG/2 ML NEBU INHALATION SCH ×2 (09:18→19:45)
[2017-12-12] MEDS: IPRATROPIUM-ALBUTEROL 3 ML NEB INHALATION SCH ×4 (09:18→19:45)
[2017-12-12] MEDS: AMOXIC-POT CLAV 875-125MG 1 EACH TAB PO SCH ×2 (10:28→20:28)
[2017-12-12] MEDS: HEPARIN SODIUM,PORCINE 5,000 UNIT/ML 1 ML VIAL SQ SCH ×3 (10:28→23:19)
[2017-12-12] MEDS: FUROSEMIDE 10 MG/ML 10 ML VIAL IV SCH ×2 (10:28→20:28)
[2017-12-12] MEDS: AMMONIUM LACTATE 12% CREAM 140 GM TUBE TOPICAL SCH ×2 (10:28→20:29)
[2017-12-12] MEDS: predniSONE 10 MG TAB PO SCH (10:29)
[2017-12-12] MEDS: ARIPiprazole 5 MG TAB PO SCH (10:29)
[2017-12-12] MEDS: DILTIAZEM CD 180 MG CAP.ER.24H PO SCH (10:29)
[2017-12-12] MEDS: traMADol 50 MG TAB PO PRN (15:10)
--- NOTE | 2017-12-12 15:31 | P.PN ---
Subjective Progress Note Date: 12/12/17 Principal diagnosis: Acute exacerbation of CHF Mr. Pugh is a 72-year-old female with a past medical history of congestive heart failure admitted to the hospital for difficulty in breathing. She is currently being with IV Lasix. Patient had a chest x-ray showing bilateral pleural effusion and right more than left so pulmonary team has been consulted and plan is to get thoracocentesis on Wednesday. Today the patient is lying in bed appears to be no acute distress. No acute overnight events reported by nursing staff. On review of systems: CONSTITUTIONAL: No fever, no malaise, no fatigue. HEENT: No visual problems or hearing problems. Denied any sore throat. CARDIOVASCULAR: Positive for orthopnea, no palpitations, no syncope. PULMONARY: Positive for shortness of breath but improving, no cough, no hemoptysis. GASTROINTESTINAL: No diarrhea, no nausea, no vomiting, no abdominal pain. Normoactive bowel sounds. NEUROLOGICAL: No headaches, no weakness, no numbness. Patient's medications have been reviewed. Objective - Vital Signs Vital signs: Vital Signs Temp 97.4 F L 12/12/17 08:00 Pulse 87 12/12/17 12:00 Resp 16 12/12/17 11:46 BP 128/69 12/12/17 12:00 Pulse Ox 94 L 12/12/17 12:00 Intake & Output 12/11/17 12/12/17 12/12/17 18:59 06:59 18:59 Intake Total 360 10 480 Output Total 1000 1425 1601 Balance -194 -1163 -1121 Weight 114.8 kg Intake: IV 10 0.9 10 Oral 360 480 Output: Urine 1000 1425 1600 Stool 1 Other: Voiding Method Indwelling Catheter # Voids 0 # Bowel Movements 1 - Exam GENERAL: The patient is alert and oriented x3, not in any acute distress. Well developed, well nourished. HEENT: Pupils are round and equally reacting to light. EOMI. No scleral icterus. No conjunctival pallor. Normocephalic, atraumatic. No pharyngeal erythema. No thyromegaly. CARDIOVASCULAR: S1 and S2 present. No murmurs, rubs, or gallops. -PULMONARY: Chest is clear to auscultation, bilateral scattered crackles. Decreased breath sounds in the lower lung bases ABDOMEN: Soft, nontender, nondistended, normoactive bowel sounds. No palpable organomegaly. MUSCULOSKELETAL: No joint swelling or deformity. EXTREMITIES: No cyanosis, clubbing,. 2+ Bilateral pedal edema. NEUROLOGICAL: Gross neurological examination did not reveal any focal deficits. SKIN: No rashes. - Labs CBC & Chem 7: 12/11/17 06:00 12/12/17 05:50 Labs: Abnormal Lab Results - Last 24 Hours (Table) 12/12/17 Range/Units 05:50 Sodium 134 L (137-145) mmol/L Potassium 5.2 H (3.5-5.1) mmol/L Chloride 91 L (98-107) mmol/L Carbon Dioxide 37 H (22-30) mmol/L BUN 90 H (7-17) mg/dL Creatinine 1.37 H (0.52-1.04) mg/dL Glucose 111 H (74-99) mg/dL Calcium 8.1 L (8.4-10.2) mg/dL Microbiology - Last 24 Hours (Table) 12/07/17 01:20 Blood Culture - Preliminary Blood No Growth after 120 hours Assessment and Plan Assessment: ASSESSMENT -Acute hypoxic respiratory failure requiring BiPAP on admission secondary to congestive heart failure -Chronic diastolic dysfunction with acute exacerbation - Mod to Severe Mitral valve stenosis as per recent Echo at [facility] -Chronic kidney disease stage 3 - probable hypertensive nephrosclerosis patient' s present creatinine is around her baseline -Accelerated hypertension -COPD with mild exacerbation -Recent right lower extremity DVT -Elevated troponin secondary to heart failure and chronic kidney disease -History of multifocal atrial tachycardia -Obesity will need a sleep study as an outpatient -Gastroesophageal reflux disease Plan: Patient will be continued on IV Lasix, as she shows improvement in her respiratory status and lower extremity edema. Pulmonary on board and planning for thoracentesis on Wednesday for which Eliquis has been on hold as per pulmonary recommendations. Discussed the risks of holding off Eliquis with the patient as she had a recent diagnosis of DVT. Continue with Augmentin for mild COPD exacerbation. Continue with the rest of her medication regimen. Further admonitions to follow depending on the progress of the patient. Overall prognosis is guarded.
[2017-12-12] MEDS: MORPHINE SULFATE 4 MG/ML SYRINGE IV PRN (18:15)
[2017-12-12] MEDS: CHOLECALCIFEROL 1,000 UNIT TAB PO SCH (20:28)
[2017-12-12] MEDS: ATORVASTATIN 40 MG TAB PO SCH (20:28)
[2017-12-12] MEDS: MAGNESIUM OXIDE 400 MG TAB PO SCH (20:29)
--- NOTE | 2017-12-12 20:53 | PN ---
PROGRESS NOTE She was seen again on 12/12/2017. She seems to be doing fair. She is lying flat in bed. Less short of breath. On physical examination, her vitals are stable. She is afebrile. Her chest reveals decreased breath sounds. Cardiovascular system reveals an S1, S2. Abdomen is soft. There is trace pedal edema. IMPRESSION: At this time; 1. Congestive heart failure. 2. History of right lower extremity DVT. 3. Acute kidney injury. 4. Pleural effusion. 5. Bronchospasm. Continue current medications. Increase her activity level. Her prognosis is fair. MMODL / IJN: [id number] /
[2017-12-13] MEDS: PANTOPRAZOLE 40 MG TABLET PO SCH (06:43)
[2017-12-13 07:40] LABS: Calcium 8.3 mg/dL (8.4-10.2); Potassium 5.4 mmol/L (3.5-5.1)
[2017-12-13 08:04] LABS: Basophils % (A) 0 %; Eosinophils # (A) 0.1 k/uL (0-0.7); Eosinophils % (A) 0 %; HCT 34.7 % (34.0-46.0); HGB 10.8 gm/dL (11.4-16.0); Hypochromasia Slight; Lymphocytes # (A) 0.7 k/uL (1.0-4.8); Lymphocytes % (A) 6 %; MCH 28.9 pg (25.0-35.0); MCHC 31.1 g/dL (31.0-37.0); MCV 92.9 fL (80.0-100.0); Mean Platelet Volume 7.4; Monocytes # (A) 0.9 k/uL (0-1.0); Monocytes % (A) 7 %; Neutrophils # (A) 11.5 k/uL (1.3-7.7); Neutrophils % (A) 86 %; Platelet Count 204 k/uL (150-450); RBC 3.74 m/uL (3.80-5.40); RDW 15.1 % (11.5-15.5); WBC 13.4 k/uL (3.8-10.6)
[2017-12-13] MEDS: IPRATROPIUM-ALBUTEROL 3 ML NEB INHALATION SCH ×4 (08:35→20:54)
[2017-12-13] MEDS: BUDESONIDE 0.5 MG/2 ML NEBU INHALATION SCH ×2 (09:07→20:54)
--- NOTE | 2017-12-13 09:33 | P.PN ---
Subjective 72-year-old female admitted for congestive heart failure chronic diastolic dysfunction with acute exacerbation, patient remained off BiPAP most of the day today. Patient requirements of BiPAP has come down significantly. Patient remains on 80 IV twice a day of Lasix with good urine output. Patient's serum creatinine remained fairly stable. White blood cell count is 19,000 fairly stable, mostly neutrophilic leukocytosis from my systemic steroids. Patient is much more awake. Feeling much better 12/09/2017 Significantly improved shortness of breath. Patient is presently on 3 L of oxygen tolerating well improved pulmonary edema remains on IV Lasix. Creatinine remained fairly stable patient does have chronic kidney disease stage III 12/02/17 This is a pleasant 77 years old lady who presents with acute on chronic CHF exacerbation, associated with moderate to severe mitral stenosis. Associated with bilateral pleural effusion, right more than left and she's been treated with diuresis and BiPAP since admission, with some improvement. Patient has been evaluated by pulmonary team and the plan for thoracocentesis on the right side, with holding Eliquis. Patient was placed on heparin during this time as per pulmonary team. we will discuss it with the pulmonary team and review their recommendation. Patient currently still on Eliquis. Patient has recent history of left leg DVT about 2 weeks ago as per patient. Also we lowered the dose of prednisone on admission from 40 mg to 30 mg starting from 12/10/2017 Her creatinine on admission 1.9 and improved to 1.4. Patient is also on Augmentin and statin. She is taken Lasix 80 mg twice a day and that helped her breathing. i discussed with the pt that holding her eluquis will put her at higher risk of recurrent DVT and/or PE which can be fatal. Patient verbalized understanding and she agreed with this plan. I think This plan has more benefits the risks Vitals checked looks his stable and currently blood pressure 134/67 and heart rate at 60 12/13/2017 patient is seen and examined at bedside. Was sitting in the chair. She denies abdominal or chest pain. She tells her breathing is very good and she is not making much phlegm as well. Blevins is still in a Place.patient was not on Blevins at home. Was not on home oxygen. And she was on tapers dose of steroids at home. We will decrease her prednisone from 30-20 mg daily. He is going for right thoracocentesis today. Eliquis is still on hold . Her leukocytosis is improving from 15.6 to 13.4 K. Creatinine is almost stable at 1.37 yesterday to 1.49 today. CONSTITUTIONAL: No fever, no malaise, no fatigue. HEENT: No recent visual problems or hearing problems. Denied any sore throat. CARDIOVASCULAR: No orthopnea, PND, no palpitations, no syncope. PULMONARY: No shortness of breath, no cough, no hemoptysis. GASTROINTESTINAL: No diarrhea, no nausea, no vomiting, no abdominal pain. Normoactive bowel sounds. NEUROLOGICAL: No headaches, no weakness, no numbness. HEMATOLOGICAL: Denies any bleeding or petechiae. GENITOURINARY: Denies any burning micturition, frequency, or urgency. MUSCULOSKELETAL/RHEUMATOLOGICAL: Denies any joint pain, swelling, or any muscle pain. ENDOCRINE: Denies any polyuria or polydipsia. Dictation review his with dosages and include: Tylenol 650 mg, albuterol 2.5 mg , Augmentin 875-125 mg, Eliquis 5 mg, Abilify 5 mg, Lipitor 40 mg, Pulmicort 0.5 mg, vitamin D 2000 units, Cardizem 360 mg, Pepcid 20 mg, Lasix 80 mg, heparin 5000 unit, lactic acid, magnesium oxide 400 mg, morphine sulfate 4 mg, Protonix 40 mg, prednisone 30 mg, Ultram 50 mg. Objective - Vital Signs Vital signs: Vital Signs Temp 97.5 F L 12/13/17 04:00 Pulse 68 12/13/17 09:17 Resp 19 12/13/17 04:00 BP 133/66 12/13/17 04:00 Pulse Ox 100 12/13/17 04:00 Intake & Output 12/12/17 12/13/17 12/13/17 18:59 06:59 18:59 Intake Total 480 20 180 Output Total 1601 1002 Balance -1121 -982 180 Weight 113.9 kg Intake: IV 20 Invasive Line 4 20 Oral 480 180 Output: Urine 1600 1000 Stool 1 2 Other: Voiding Method Indwelling Catheter # Bowel Movements 1 - Exam GENERAL: The patient is alert and oriented x3, not in any acute distress. Well developed, well nourished. HEENT: Pupils are round and equally reacting to light. EOMI. No scleral icterus. No conjunctival pallor. Normocephalic, atraumatic. No pharyngeal erythema. No thyromegaly. CARDIOVASCULAR: S1 and S2 present. No murmurs, rubs, or gallops. -PULMONARY: Chest is clear to auscultation, bilateral scattered crackles. Decreased breath sounds ABDOMEN: Soft, nontender, nondistended, normoactive bowel sounds. No palpable organomegaly. MUSCULOSKELETAL: No joint swelling or deformity. EXTREMITIES: No cyanosis, clubbing,. 2+ Bilateral pedal edema. NEUROLOGICAL: Gross neurological examination did not reveal any focal deficits. SKIN: No rashes. - Labs CBC & Chem 7: 12/13/17 06:22 12/13/17 06:22 Labs: Abnormal Lab Results - Last 24 Hours (Table) 12/13/17 12/13/17 Range/Units 06:22 06:22 WBC 13.4 H (3.8-10.6) k/uL RBC 3.74 L (3.80-5.40) m/uL Hgb 10.8 L (11.4-16.0) gm/dL Neutrophils # 11.5 H (1.3-7.7) k/uL Lymphocytes # 0.7 L (1.0-4.8) k/uL Sodium 135 L (137-145) mmol/L Potassium 5.4 H (3.5-5.1) mmol/L Chloride 89 L (98-107) mmol/L Carbon Dioxide 40 H (22-30) mmol/L BUN 86 H (7-17) mg/dL Creatinine 1.49 H (0.52-1.04) mg/dL Glucose 108 H (74-99) mg/dL Calcium 8.3 L (8.4-10.2) mg/dL ALT 87 H (9-52) U/L Microbiology - Last 24 Hours (Table) 12/07/17 01:20 Blood Culture - Final Blood No Growth after 144 hours Assessment and Plan Plan: -Acute hypoxic respiratory failure requiring BiPAP on admission and is presently on 3 L significantly improved respiratory status. secondary to congestive heart failure chronic diastolic dysfunction with acute exacerbation. 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
[2017-12-13] MEDS: FUROSEMIDE 10 MG/ML 10 ML VIAL IV SCH ×2 (09:45→20:53)
[2017-12-13] MEDS: DILTIAZEM CD 180 MG CAP.ER.24H PO SCH (09:45)
[2017-12-13] MEDS: HEPARIN SODIUM,PORCINE 5,000 UNIT/ML 1 ML VIAL SQ SCH ×3 (09:45→23:02)
[2017-12-13] MEDS: AMMONIUM LACTATE 12% CREAM 140 GM TUBE TOPICAL SCH ×2 (09:46→20:54)
[2017-12-13] MEDS: AMOXIC-POT CLAV 875-125MG 1 EACH TAB PO SCH ×2 (09:46→20:52)
[2017-12-13] MEDS: ARIPiprazole 5 MG TAB PO SCH (09:46)
[2017-12-13] MEDS: traMADol 50 MG TAB PO PRN ×2 (09:55→20:52)
--- NOTE | 2017-12-13 10:39 | P.PN ---
Subjective Progress Note Date: 12/13/17 History of present illness: This is a 77-year-old female who presented to emergency department from [facility] complaining of worsening shortness of breath. The patient was recently hospitalized at [facility] from 11/26/2017 and discharged on 12/02/2017. The patient was treated for congestive heart failure , acute right lower extremity DVT, multifocal atrial tachycardia. The patient was found by EMS to have moderate to severe respiratory distress, tachypnea. She was also found to have oxygen saturation in the 80s. She did have intermittent chest pressure. She also complained of cough which was nonproductive. On chest x-ray the patient was found to have by basilar infiltrates and pleural effusions. The patient was placed on BiPAP overnight. She appears to be much more comfortable. She states she feels much better with the BiPAP on. In the emergency department the patient was also found to be hypertensive with systolic blood pressures between 190 and 220. The patient was subsequently started on nitroglycerin drip. She was not having any fevers or chills. The patient also has known severe persistent asthma and is on Xolair injections as an outpatient as well as Trelegy inhaler. Interval history: 12/08/2017patient is being seen examined and evaluated today on rounds. She did utilize her BiPAP overnight. She currently is resting up in bed on 4 L of supplemental oxygen via nasal cannula. She feels her breathing is somewhat improving today. She is responding well to her breathing treatments. She continues with diuresis and is on Lasix 80 mg every 12 hours IV. She does continue to have shortness of breath with exertion and activity. Her cough is improving and is nonproductive. She is afebrile no further complaints. 12/09/2017patient is being seen examined and evaluated on rounds. She did utilize her BiPAP overnight. Currently she is resting up in bed on 3 L of supplemental oxygen via nasal cannula. Her nitro drip was turned off. She denies any further chest pain. She has been diuresing well. Continues on Lasix IV. Does have shortness of breath with exertion and activity however is improving. Chest x-ray was obtained and is currently pending this morning. 12/10/17- patient is being seen examined and evaluated today on rounds. She did utilize the BiPAP overnight. Currently she is resting up in bedside chair taking a nap. She continues on 4 L of supplemental oxygen via nasal cannula. She continues to have shortness of breath with cough and congestion. She does have a Blevins catheter and is diuresing well. The patient did undergo an ultrasound of the chest which did reveal a right-sided pleural effusion of 7.3 and a left-sided pleural effusion of 4.4. The patient is on Eliquis. We will hold the Eliquis on Wednesday and Wednesday and do a thoracentesis on Wednesday. While her Eliquis is being held we will put the patient on subcu heparin. 12/11/17-12/12/17- Please see Dr SUSANNE Palomo notes 12/13/17- patient is being seen examined and evaluated today on rounds. She is resting up in bed on 3 L of supplemental oxygen. She continues to have shortness of breath cough and congestion. She will be undergoing an ultrasound of the chest for re-measurement and remarking of her bilateral pleural effusions. The patient's Eliquis was held over the weekend and she was bridged with heparin in preparation for thoracentesis today. She does continue with Blevins catheter in place and is diuresing well. Objective - Vital Signs Vital signs: Vital Signs Temp 97.5 F L 12/13/17 04:00 Pulse 68 12/13/17 09:17 Resp 19 12/13/17 04:00 BP 133/66 12/13/17 04:00 Pulse Ox 100 12/13/17 04:00 Intake & Output 12/12/17 12/13/17 12/13/17 18:59 06:59 18:59 Intake Total 480 20 180 Output Total 1601 1002 Balance -1121 -982 180 Weight 113.9 kg Intake: IV 20 Invasive Line 4 20 Oral 480 180 Output: Urine 1600 1000 Stool 1 2 Other: Voiding Method Indwelling Catheter # Bowel Movements 1 - Exam General: Alert and oriented x 3, Currently comfortable on BiPAP Cardiovascular: Regular rate and rhythm, S1/S2 Lungs: Coarse breath sounds bilaterally with diffuse crackles Abdomen: Soft nontender nondistended positive bowel sounds Extremities: Trace edema - Labs CBC & Chem 7: 12/13/17 06:22 12/13/17 06:22 Labs: Abnormal Lab Results - Last 24 Hours (Table) 12/13/17 12/13/17 Range/Units 06:22 06:22 WBC 13.4 H (3.8-10.6) k/uL RBC 3.74 L (3.80-5.40) m/uL Hgb 10.8 L (11.4-16.0) gm/dL Neutrophils # 11.5 H (1.3-7.7) k/uL Lymphocytes # 0.7 L (1.0-4.8) k/uL Sodium 135 L (137-145) mmol/L Potassium 5.4 H (3.5-5.1) mmol/L Chloride 89 L (98-107) mmol/L Carbon Dioxide 40 H (22-30) mmol/L BUN 86 H (7-17) mg/dL Creatinine 1.49 H (0.52-1.04) mg/dL Glucose 108 H (74-99) mg/dL Calcium 8.3 L (8.4-10.2) mg/dL ALT 87 H (9-52) U/L Microbiology - Last 24 Hours (Table) 12/07/17 01:20 Blood Culture - Final Blood No Growth after 144 hours Assessment and Plan Assessment: Assessment Acute hypoxic respiratory failure Bibasilar infiltrates and pleural effusions Acute exacerbation of congestive heart failure Hypertensive emergency NSTEMI History of multifocal atrial tachycardia Recent RLE DVT Severe persistent asthma Leukocytosis likely secondary to steroids Hyponatremia, fluid overload Mild hyperkalemia Acute kidney injury on chronic kidney disease stage III Obesity, concern for MAIRA, patient has history of MAIRA but declines to wear CPAP Plan Medications reviewed and continued as ordered Thoracentesis today, awaiting new ultra sound of chest Patient was off of her Eliquis for 48 hours before thoracentesis While Eliquis was on hold, patient put on subcu heparin Continue BiPAP support Supplemental oxygen to maintain oxygen saturations greater than 90% or above Diuresis Cardiology recommendations Pulmicort and duo nebs Prednisone taper Antibiotics per primary team Incentive spirometry and pulmonary hygiene Daily weights and I/Os Monitor urine output and renal function Continue Singulair and Xolair outpatient Patient will be reeducated on obstructive sleep apnea and congestive heart failure. She will be encouraged to use CPAP. GI and DVT prophylaxis: Eliquis and Protonix We will continue to follow along. I performed an examination of the patient and discussed their management with the nurse practitioner. I have reviewed the nurse practitioner's note and agree with the documented findings and plan of care.
[2017-12-13] MEDS: predniSONE 10 MG TAB PO SCH (12:16)
--- NOTE | 2017-12-13 12:31 | US ---
EXAMINATION TYPE: US chest DATE OF EXAM: 12/13/2017 COMPARISON: NONE CLINICAL HISTORY: bilateraly pl effusions. Pleural effusion TECHNIQUE: Targeted ultrasound of the posterior lower bilateral hemithoraces EXAM MEASUREMENTS: Right Pleural Effusion pocket size: 7.8 cm Right skin surface to fluid distance: 3.2 cm Left Pleural Effusion pocket size: 7.6 cm Left skin surface to fluid distance: 4.6 cm Right side marked for possible thoracentesis outside the dept. Left side marked for possible thoracentesis outside the dept. Pulmonologists are able to review the images in the patient?s EMR. IMPRESSIONS: 1. Pleural effusions as noted.
--- NOTE | 2017-12-13 14:41 | XR ---
EXAMINATION TYPE: XR chest 1V portable DATE OF EXAM: 12/13/2017 COMPARISON: 12/09/2017 HISTORY: Shortness of breath TECHNIQUE: Frontal and lateral views of the chest are obtained. FINDINGS: Scattered senescent parenchymal changes noted. Hyperinflation compatible with COPD. Improved basilar infiltrates and/or atelectasis with effusions. Continued pulmonary venous congestion although improved as well. Heart size is stable. Mediastinal structures are stable and grossly unremarkable. No evidence for hilar prominence. Degenerative changes dorsal spine. IMPRESSION: 1. Improved basilar infiltrates and/or atelectasis with effusions. Continued pulmonary venous congest ion although improved as well.
--- NOTE | 2017-12-13 15:14 | P.PCN ---
Date of Procedure: 12/13/17 Preoperative Diagnosis: Right pleural effusion Postoperative Diagnosis: Same Surgeon: Antonia Jalloh Child Development Teacher #1: Yadi Melton Estimated Blood Loss (ml): 0 Condition: stable Disposition: floor Indications for Procedure: Right pleural effusion Description of Procedure: A time-out was completed verifying correct patient, procedure, site, positioning , and special equipment if applicable. The patients right side was prepped and draped in a sterile manner after the appropriate infiltration level was confirmed by ultrasound. 1% lidocaine was used anesthetize the surrounding skin. A finder needle was then used to locate fluid and clear lily-yellow fluid was obtained. A 10-blade scalpel used to make the incision. The thoracentesis catheter was then threaded without difficulty. The patient had 400 mL of clear lily-yellow fluid removed. A post-procedure chest x-ray was ordered and the fluid will be sent for several studies. Estimated Blood Loss: 0 mL The patient tolerated the procedure well and there were no complications.
[2017-12-13] MEDS: ATORVASTATIN 40 MG TAB PO SCH (20:53)
[2017-12-13] MEDS: CHOLECALCIFEROL 1,000 UNIT TAB PO SCH (20:53)
[2017-12-13] MEDS: MAGNESIUM OXIDE 400 MG TAB PO SCH (20:54)
[2017-12-14] MEDS: ACETAMINOPHEN TAB 325 MG TAB PO PRN ×2 (01:01→15:42)
[2017-12-14] MEDS: PANTOPRAZOLE 40 MG TABLET PO SCH (06:25)
[2017-12-14 07:29] LABS: Basophils % (A) 0 %; Eosinophils # (A) 0.3 k/uL (0-0.7); Eosinophils % (A) 3 %; HCT 32.5 % (34.0-46.0); HGB 10.2 gm/dL (11.4-16.0); Hypochromasia Slight; Lymphocytes # (A) 0.9 k/uL (1.0-4.8); Lymphocytes % (A) 8 %; MCH 29.3 pg (25.0-35.0); MCHC 31.4 g/dL (31.0-37.0); MCV 93.1 fL (80.0-100.0); Mean Platelet Volume 7.4; Monocytes # (A) 0.6 k/uL (0-1.0); Monocytes % (A) 6 %; Neutrophils # (A) 9.6 k/uL (1.3-7.7); Neutrophils % (A) 83 %; Platelet Count 173 k/uL (150-450); RBC 3.49 m/uL (3.80-5.40); RDW 15.1 % (11.5-15.5); WBC 11.5 k/uL (3.8-10.6)
[2017-12-14 07:38] LABS: Albumin 2.9 g/dL (3.5-5.0); Bilirubin, Delta 0.4 mg/dL (0.0-0.2); Bilirubin,Unconjugated 0.2 mg/dL (0.0-1.1); Calcium 8.1 mg/dL (8.4-10.2); Potassium 4.5 mmol/L (3.5-5.1); Total Bilirubin 0.6 mg/dL (0.2-1.3); Total Protein 5.3 g/dL (6.3-8.2)
[2017-12-14] MEDS: FUROSEMIDE 10 MG/ML 10 ML VIAL IV SCH ×2 (08:20→20:06)
[2017-12-14] MEDS: HEPARIN SODIUM,PORCINE 5,000 UNIT/ML 1 ML VIAL SQ SCH (08:20)
[2017-12-14] MEDS: DILTIAZEM CD 180 MG CAP.ER.24H PO SCH (08:22)
[2017-12-14] MEDS: ARIPiprazole 5 MG TAB PO SCH (08:22)
[2017-12-14] MEDS: predniSONE 20 MG TAB PO SCH (08:22)
[2017-12-14] MEDS: AMOXIC-POT CLAV 875-125MG 1 EACH TAB PO SCH ×2 (08:22→20:05)
[2017-12-14] MEDS: IPRATROPIUM-ALBUTEROL 3 ML NEB INHALATION SCH ×4 (08:38→20:38)
[2017-12-14] MEDS: BUDESONIDE 0.5 MG/2 ML NEBU INHALATION SCH ×2 (08:38→20:38)
--- NOTE | 2017-12-14 10:50 | P.PN ---
Subjective 72-year-old female admitted for congestive heart failure chronic diastolic dysfunction with acute exacerbation, patient remained off BiPAP most of the day today. Patient requirements of BiPAP has come down significantly. Patient remains on 80 IV twice a day of Lasix with good urine output. Patient's serum creatinine remained fairly stable. White blood cell count is 19,000 fairly stable, mostly neutrophilic leukocytosis from my systemic steroids. Patient is much more awake. Feeling much better 12/09/2017 Significantly improved shortness of breath. Patient is presently on 3 L of oxygen tolerating well improved pulmonary edema remains on IV Lasix. Creatinine remained fairly stable patient does have chronic kidney disease stage III 12/02/17 This is a pleasant 77 years old lady who presents with acute on chronic CHF exacerbation, associated with moderate to severe mitral stenosis. Associated with bilateral pleural effusion, right more than left and she's been treated with diuresis and BiPAP since admission, with some improvement. Patient has been evaluated by pulmonary team and the plan for thoracocentesis on the right side, with holding Eliquis. Patient was placed on heparin during this time as per pulmonary team. we will discuss it with the pulmonary team and review their recommendation. Patient currently still on Eliquis. Patient has recent history of left leg DVT about 2 weeks ago as per patient. Also we lowered the dose of prednisone on admission from 40 mg to 30 mg starting from 12/10/2017 Her creatinine on admission 1.9 and improved to 1.4. Patient is also on Augmentin and statin. She is taken Lasix 80 mg twice a day and that helped her breathing. i discussed with the pt that holding her eluquis will put her at higher risk of recurrent DVT and/or PE which can be fatal. Patient verbalized understanding and she agreed with this plan. I think This plan has more benefits the risks Vitals checked looks his stable and currently blood pressure 134/67 and heart rate at 60 12/13/2017 patient is seen and examined at bedside. Was sitting in the chair. She denies abdominal or chest pain. She tells her breathing is very good and she is not making much phlegm as well. Blevins is still in a Place.patient was not on Blevins at home. Was not on home oxygen. And she was on tapers dose of steroids at home. We will decrease her prednisone from 30-20 mg daily. He is going for right thoracocentesis today. Eliquis is still on hold . Her leukocytosis is improving from 15.6 to 13.4 K. Creatinine is almost stable at 1.37 yesterday to 1.49 today. 12/14/2017 Patient is a status post right thoracocentesis. And being evaluated for possible left pleural tap today. Patient currently denies any chest pain or dyspnea and she is breathing quietly. She remains on 3 L oxygen via nasal cannula. Patient told me today she used to be on oxygen at rehab. Eliquis still on hold with subcutaneous heparin for bridging. Patient has a Blevins. No chest pain and her cough is better CONSTITUTIONAL: No fever, no malaise, no fatigue. HEENT: No recent visual problems or hearing problems. Denied any sore throat. CARDIOVASCULAR: No orthopnea, PND, no palpitations, no syncope. PULMONARY: No shortness of breath, no cough, no hemoptysis. GASTROINTESTINAL: No diarrhea, no nausea, no vomiting, no abdominal pain. Normoactive bowel sounds. NEUROLOGICAL: No headaches, no weakness, no numbness. HEMATOLOGICAL: Denies any bleeding or petechiae. GENITOURINARY: Denies any burning micturition, frequency, or urgency. MUSCULOSKELETAL/RHEUMATOLOGICAL: Denies any joint pain, swelling, or any muscle pain. ENDOCRINE: Denies any polyuria or polydipsia. Dictation review his with dosages and include: Tylenol 650 mg, albuterol 2.5 mg , Augmentin 875-125 mg, Eliquis 5 mg, Abilify 5 mg, Lipitor 40 mg, Pulmicort 0.5 mg, vitamin D 2000 units, Cardizem 360 mg, Pepcid 20 mg, Lasix 80 mg, heparin 5000 unit, lactic acid, magnesium oxide 400 mg, morphine sulfate 4 mg, Protonix 40 mg, prednisone 30 mg, Ultram 50 mg. Objective - Vital Signs Vital signs: Vital Signs Temp 96.3 F L 12/14/17 08:00 Pulse 78 12/14/17 08:54 Resp 20 12/14/17 08:38 BP 125/58 12/14/17 08:00 Pulse Ox 96 12/14/17 08:38 Intake & Output 12/13/17 12/14/17 12/14/17 18:59 06:59 18:59 Intake Total 1120 970 360 Output Total 1 1900 Balance 1119 -930 360 Weight 114.3 kg Intake: IV 30 10 Invasive Line 4 30 10 Oral 1090 960 360 Output: Urine 1900 Uretheral (Blevins) 700 Stool 1 Other: Voiding Method Indwelling Catheter Indwelling Catheter # Voids 0 1 - Exam GENERAL: The patient is alert and oriented x3, not in any acute distress. Well developed, well nourished. HEENT: Pupils are round and equally reacting to light. EOMI. No scleral icterus. No conjunctival pallor. Normocephalic, atraumatic. No pharyngeal erythema. No thyromegaly. CARDIOVASCULAR: S1 and S2 present. No murmurs, rubs, or gallops. -PULMONARY: Chest is clear to auscultation, bilateral scattered crackles. Decreased breath sounds ABDOMEN: Soft, nontender, nondistended, normoactive bowel sounds. No palpable organomegaly. MUSCULOSKELETAL: No joint swelling or deformity. EXTREMITIES: No cyanosis, clubbing,. 2+ Bilateral pedal edema. NEUROLOGICAL: Gross neurological examination did not reveal any focal deficits. SKIN: No rashes. - Labs CBC & Chem 7: 12/14/17 06:45 12/14/17 06:45 Labs: Abnormal Lab Results - Last 24 Hours (Table) 12/14/17 12/14/17 Range/Units 06:45 06:45 WBC 11.5 H (3.8-10.6) k/uL RBC 3.49 L (3.80-5.40) m/uL Hgb 10.2 L (11.4-16.0) gm/dL Hct 32.5 L (34.0-46.0) % Neutrophils # 9.6 H (1.3-7.7) k/uL Lymphocytes # 0.9 L (1.0-4.8) k/uL Sodium 134 L (137-145) mmol/L Chloride 89 L (98-107) mmol/L Carbon Dioxide 39 H (22-30) mmol/L BUN 81 H (7-17) mg/dL Creatinine 1.44 H (0.52-1.04) mg/dL Glucose 140 H (74-99) mg/dL Calcium 8.1 L (8.4-10.2) mg/dL Delta Bilirubin 0.4 H (0.0-0.2) mg/dL AST 62 H (14-36) U/L ALT 89 H (9-52) U/L Total Protein 5.3 L (6.3-8.2) g/dL Albumin 2.9 L (3.5-5.0) g/dL Assessment and Plan Plan: -Acute hypoxic respiratory failure requiring BiPAP on admission and is presently on 3 L significantly improved respiratory status. secondary to congestive heart failure chronic diastolic dysfunction with acute exacerbation. 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
--- NOTE | 2017-12-14 11:02 | P.PCN ---
Date of Procedure: 12/14/17 Preoperative Diagnosis: left pleural effusion Postoperative Diagnosis: same Surgeon: Antonia Jalloh Web Site Project Manager #1: Yadi Melton Estimated Blood Loss (ml): 0 Condition: stable Disposition: floor Indications for Procedure: left pleural effusion Description of Procedure: A time-out was completed verifying correct patient, procedure, site, positioning , and special equipment if applicable. The patient's left side was prepped and draped in a sterile manner after the appropriate infiltration level was confirmed by ultrasound. 1% lidocaine was used anesthetize the surrounding skin. A finder needle was then used to locate fluid and clear yellow fluid was obtained. A 10-blade scalpel used to make the incision. The thoracentesis catheter was then threaded without difficulty. The patient had 400 mL of clear yellow fluid removed. A post-procedure chest x-ray was ordered and the fluid will be sent for several studies. Estimated Blood Loss: 0 mL The patient tolerated the procedure well and there were no complications.
--- NOTE | 2017-12-14 11:05 | P.PN ---
Subjective Progress Note Date: 12/14/17 History of present illness: This is a 77-year-old female who presented to emergency department from [facility] complaining of worsening shortness of breath. The patient was recently hospitalized at [facility] from 11/26/2017 and discharged on 12/02/2017. The patient was treated for congestive heart failure , acute right lower extremity DVT, multifocal atrial tachycardia. The patient was found by EMS to have moderate to severe respiratory distress, tachypnea. She was also found to have oxygen saturation in the 80s. She did have intermittent chest pressure. She also complained of cough which was nonproductive. On chest x-ray the patient was found to have by basilar infiltrates and pleural effusions. The patient was placed on BiPAP overnight. She appears to be much more comfortable. She states she feels much better with the BiPAP on. In the emergency department the patient was also found to be hypertensive with systolic blood pressures between 190 and 220. The patient was subsequently started on nitroglycerin drip. She was not having any fevers or chills. The patient also has known severe persistent asthma and is on Xolair injections as an outpatient as well as Trelegy inhaler. Interval history: 12/08/2017patient is being seen examined and evaluated today on rounds. She did utilize her BiPAP overnight. She currently is resting up in bed on 4 L of supplemental oxygen via nasal cannula. She feels her breathing is somewhat improving today. She is responding well to her breathing treatments. She continues with diuresis and is on Lasix 80 mg every 12 hours IV. She does continue to have shortness of breath with exertion and activity. Her cough is improving and is nonproductive. She is afebrile no further complaints. 12/09/2017patient is being seen examined and evaluated on rounds. She did utilize her BiPAP overnight. Currently she is resting up in bed on 3 L of supplemental oxygen via nasal cannula. Her nitro drip was turned off. She denies any further chest pain. She has been diuresing well. Continues on Lasix IV. Does have shortness of breath with exertion and activity however is improving. Chest x-ray was obtained and is currently pending this morning. 12/10/17- patient is being seen examined and evaluated today on rounds. She did utilize the BiPAP overnight. Currently she is resting up in bedside chair taking a nap. She continues on 4 L of supplemental oxygen via nasal cannula. She continues to have shortness of breath with cough and congestion. She does have a Blevins catheter and is diuresing well. The patient did undergo an ultrasound of the chest which did reveal a right-sided pleural effusion of 7.3 and a left-sided pleural effusion of 4.4. The patient is on Eliquis. We will hold the Eliquis on Wednesday and Wednesday and do a thoracentesis on Wednesday. While her Eliquis is being held we will put the patient on subcu heparin. 12/11/17-12/12/17- Please see Dr SUSANNE Palomo notes 12/13/17- patient is being seen examined and evaluated today on rounds. She is resting up in bed on 3 L of supplemental oxygen. She continues to have shortness of breath cough and congestion. She will be undergoing an ultrasound of the chest for re-measurement and remarking of her bilateral pleural effusions. The patient's Eliquis was held over the weekend and she was bridged with heparin in preparation for thoracentesis today. She does continue with Blevins catheter in place and is diuresing well. 12/14/17- Patient being seen examined and evaluated on rounds. She is resting up in bed on 3-4L of supplemeental oxygen, states her breathing has improved since her right thoracentesis yesterday. She is scheduled for a left sided thoracentesis today. refer to procedure notes. All labs and reports reviewed. Objective - Vital Signs Vital signs: Vital Signs Temp 96.3 F L 12/14/17 08:00 Pulse 78 12/14/17 08:54 Resp 20 12/14/17 08:38 BP 125/58 12/14/17 08:00 Pulse Ox 96 12/14/17 08:38 Intake & Output 12/13/17 12/14/17 12/14/17 18:59 06:59 18:59 Intake Total 1120 970 360 Output Total 1 1900 Balance 1119 -930 360 Weight 114.3 kg Intake: IV 30 10 Invasive Line 4 30 10 Oral 1090 960 360 Output: Urine 1900 Uretheral (Blevins) 700 Stool 1 Other: Voiding Method Indwelling Catheter Indwelling Catheter # Voids 0 1 - Exam General: Alert and oriented x 3, Currently comfortable on BiPAP Cardiovascular: Regular rate and rhythm, S1/S2 Lungs: Coarse breath sounds bilaterally with diffuse crackles, bases diminished. Abdomen: Soft nontender nondistended positive bowel sounds Extremities: Trace edema - Labs CBC & Chem 7: 12/14/17 06:45 12/14/17 06:45 Labs: Abnormal Lab Results - Last 24 Hours (Table) 12/14/17 12/14/17 Range/Units 06:45 06:45 WBC 11.5 H (3.8-10.6) k/uL RBC 3.49 L (3.80-5.40) m/uL Hgb 10.2 L (11.4-16.0) gm/dL Hct 32.5 L (34.0-46.0) % Neutrophils # 9.6 H (1.3-7.7) k/uL Lymphocytes # 0.9 L (1.0-4.8) k/uL Sodium 134 L (137-145) mmol/L Chloride 89 L (98-107) mmol/L Carbon Dioxide 39 H (22-30) mmol/L BUN 81 H (7-17) mg/dL Creatinine 1.44 H (0.52-1.04) mg/dL Glucose 140 H (74-99) mg/dL Calcium 8.1 L (8.4-10.2) mg/dL Delta Bilirubin 0.4 H (0.0-0.2) mg/dL AST 62 H (14-36) U/L ALT 89 H (9-52) U/L Total Protein 5.3 L (6.3-8.2) g/dL Albumin 2.9 L (3.5-5.0) g/dL Assessment and Plan Assessment: Assessment Acute hypoxic respiratory failure Bibasilar infiltrates and pleural effusions Acute exacerbation of congestive heart failure Hypertensive emergency NSTEMI History of multifocal atrial tachycardia Recent RLE DVT Severe persistent asthma Leukocytosis likely secondary to steroids Hyponatremia, fluid overload Mild hyperkalemia Acute kidney injury on chronic kidney disease stage III Obesity, concern for MAIRA, patient has history of MAIRA but declines to wear CPAP Plan Medications reviewed and continued as ordered Thoracentesis today, see procedure notes Eliquis will be restarted, heparin stopped Continue BiPAP support Supplemental oxygen to maintain oxygen saturations greater than 90% or above Diuresis Cardiology recommendations Pulmicort and duo nebs Prednisone taper Antibiotics per primary team Incentive spirometry and pulmonary hygiene Daily weights and I/Os Monitor urine output and renal function Continue Singulair and Xolair outpatient Patient will be reeducated on obstructive sleep apnea and congestive heart failure. She will be encouraged to use CPAP. GI and DVT prophylaxis: Eliquis and Protonix We will continue to follow along. I performed an examination of the patient and discussed their management with the nurse practitioner. I have reviewed the nurse practitioner's note and agree with the documented findings and plan of care.
--- NOTE | 2017-12-14 11:26 | XR ---
EXAMINATION TYPE: XR chest 1V portable DATE OF EXAM: 12/14/2017 COMPARISON: 12/13/2017 HISTORY: Post left thoracentesis TECHNIQUE: Single frontal view of the chest is obtained. FINDINGS: Bilateral consolidation and pleural effusion. Biapical pleural thickening. No sizable pneu mothorax. Atherosclerotic change of the aorta. Interval reduction in amount pleural fluid on the left . Interstitial pattern IMPRESSION: Bilateral consolidation and pleural effusion with no sizable pneumothorax. Correlate for mild venous congestion.
[2017-12-14 15:02] VITALS: BMI 38.2
[2017-12-14] MEDS: traMADol 50 MG TAB PO PRN (16:15)
[2017-12-14] MEDS: AMMONIUM LACTATE 12% CREAM 140 GM TUBE TOPICAL SCH ×2 (16:17→20:05)
[2017-12-14 17:39] LABS: Appearance,BF Hazy; Color,BF Yellow; Nucleated Cells, Body Fluid 300 /uL; RBC, Body Fluid 435 /uL
[2017-12-14 17:43] LABS: Mononuclear WBC,Body Fluid 86 %; Polynuclear WBC,Body Fluid 12 %; Total Cells Counted,Body Fluid 100
[2017-12-14] MEDS: ATORVASTATIN 40 MG TAB PO SCH (20:05)
[2017-12-14] MEDS: CHOLECALCIFEROL 1,000 UNIT TAB PO SCH (20:05)
[2017-12-14] MEDS: APIXABAN 5 MG TAB PO SCH (20:05)
[2017-12-14] MEDS: MAGNESIUM OXIDE 400 MG TAB PO SCH (20:06)
[2017-12-15] MEDS: PANTOPRAZOLE 40 MG TABLET PO SCH (06:08)
[2017-12-15] MEDS: traMADol 50 MG TAB PO PRN ×2 (08:01→14:43)
[2017-12-15 08:02] LABS: Basophils % (A) 0 %; Eosinophils # (A) 0.4 k/uL (0-0.7); Eosinophils % (A) 3 %; HCT 34.1 % (34.0-46.0); HGB 11.1 gm/dL (11.4-16.0); Lymphocytes # (A) 1.1 k/uL (1.0-4.8); Lymphocytes % (A) 8 %; MCH 29.7 pg (25.0-35.0); MCHC 32.5 g/dL (31.0-37.0); MCV 91.6 fL (80.0-100.0); Mean Platelet Volume 8.5; Monocytes # (A) 0.8 k/uL (0-1.0); Monocytes % (A) 6 %; Neutrophils # (A) 10.9 k/uL (1.3-7.7); Neutrophils % (A) 82 %; Platelet Count 166 k/uL (150-450); RBC 3.73 m/uL (3.80-5.40); RDW 15.3 % (11.5-15.5); WBC 13.4 k/uL (3.8-10.6)
[2017-12-15] MEDS: AMOXIC-POT CLAV 875-125MG 1 EACH TAB PO SCH (08:09)
[2017-12-15] MEDS: AMMONIUM LACTATE 12% CREAM 140 GM TUBE TOPICAL SCH (08:09)
[2017-12-15] MEDS: FUROSEMIDE 10 MG/ML 10 ML VIAL IV SCH (08:10)
[2017-12-15] MEDS: APIXABAN 5 MG TAB PO SCH (08:10)
[2017-12-15] MEDS: ARIPiprazole 5 MG TAB PO SCH (08:10)
[2017-12-15] MEDS: DILTIAZEM CD 180 MG CAP.ER.24H PO SCH (08:10)
[2017-12-15] MEDS: predniSONE 20 MG TAB PO SCH (08:11)
[2017-12-15 08:19] LABS: Calcium 8.4 mg/dL (8.4-10.2)
[2017-12-15 08:24] LABS: Potassium 5.6 mmol/L (3.5-5.1)
[2017-12-15] MEDS: IPRATROPIUM-ALBUTEROL 3 ML NEB INHALATION SCH ×2 (09:14→13:12)
[2017-12-15] MEDS: BUDESONIDE 0.5 MG/2 ML NEBU INHALATION SCH (09:14)
--- NOTE | 2017-12-15 10:19 | P.PN ---
<Yadi Melton E - Last Filed: 12/15/17 10:14> Subjective Progress Note Date: 12/15/17 History of present illness: This is a 77-year-old female who presented to emergency department from [facility] complaining of worsening shortness of breath. The patient was recently hospitalized at [facility] from 11/26/2017 and discharged on 12/02/2017. The patient was treated for congestive heart failure , acute right lower extremity DVT, multifocal atrial tachycardia. The patient was found by EMS to have moderate to severe respiratory distress, tachypnea. She was also found to have oxygen saturation in the 80s. She did have intermittent chest pressure. She also complained of cough which was nonproductive. On chest x-ray the patient was found to have by basilar infiltrates and pleural effusions. The patient was placed on BiPAP overnight. She appears to be much more comfortable. She states she feels much better with the BiPAP on. In the emergency department the patient was also found to be hypertensive with systolic blood pressures between 190 and 220. The patient was subsequently started on nitroglycerin drip. She was not having any fevers or chills. The patient also has known severe persistent asthma and is on Xolair injections as an outpatient as well as Trelegy inhaler. Interval history: 12/08/2017patient is being seen examined and evaluated today on rounds. She did utilize her BiPAP overnight. She currently is resting up in bed on 4 L of supplemental oxygen via nasal cannula. She feels her breathing is somewhat improving today. She is responding well to her breathing treatments. She continues with diuresis and is on Lasix 80 mg every 12 hours IV. She does continue to have shortness of breath with exertion and activity. Her cough is improving and is nonproductive. She is afebrile no further complaints. 12/09/2017patient is being seen examined and evaluated on rounds. She did utilize her BiPAP overnight. Currently she is resting up in bed on 3 L of supplemental oxygen via nasal cannula. Her nitro drip was turned off. She denies any further chest pain. She has been diuresing well. Continues on Lasix IV. Does have shortness of breath with exertion and activity however is improving. Chest x-ray was obtained and is currently pending this morning. 12/10/17- patient is being seen examined and evaluated today on rounds. She did utilize the BiPAP overnight. Currently she is resting up in bedside chair taking a nap. She continues on 4 L of supplemental oxygen via nasal cannula. She continues to have shortness of breath with cough and congestion. She does have a Clifford catheter and is diuresing well. The patient did undergo an ultrasound of the chest which did reveal a right-sided pleural effusion of 7.3 and a left-sided pleural effusion of 4.4. The patient is on Eliquis. We will hold the Eliquis on Wednesday and Wednesday and do a thoracentesis on Wednesday. While her Eliquis is being held we will put the patient on subcu heparin. 12/11/17-12/12/17- Please see Dr SUSANNE Palomo notes 12/13/17- patient is being seen examined and evaluated today on rounds. She is resting up in bed on 3 L of supplemental oxygen. She continues to have shortness of breath cough and congestion. She will be undergoing an ultrasound of the chest for re-measurement and remarking of her bilateral pleural effusions. The patient's Eliquis was held over the weekend and she was bridged with heparin in preparation for thoracentesis today. She does continue with Clifford catheter in place and is diuresing well. 12/14/17- Patient being seen examined and evaluated on rounds. She is resting up in bed on 3-4L of supplemeental oxygen, states her breathing has improved since her right thoracentesis yesterday. She is scheduled for a left sided thoracentesis today. refer to procedure notes. All labs and reports reviewed. 12/15/17- patient being seen examined and evaluated today on rounds. She is resting up on 2-3 L of supplemental oxygen. She did undergo left-sided thoracentesis yesterday C procedure notes. She continues with her Clifford catheter and she is on Lasix 80 mg IV every 12 hours. She is being prepared for discharge to possible ECF. She is afebrile feels like her breathing is improving overall. Objective - Vital Signs Vital signs: Vital Signs Temp 97 F L 12/15/17 08:00 Pulse 80 12/15/17 09:29 Resp 20 12/15/17 08:00 BP 120/56 12/15/17 08:00 Pulse Ox 98 12/15/17 08:00 Intake & Output 12/14/17 12/15/17 12/15/17 18:59 06:59 18:59 Intake Total 804 960 240 Output Total 1000 2250 Balance -196 -1290 240 Weight 114.3 kg 114 kg Intake: Oral 804 960 240 Output: Urine 1000 2250 Stool 0 Other: Voiding Method Indwelling Catheter Indwelling Catheter # Voids 1 0 - Exam General: Alert and oriented x 3, Currently comfortable on BiPAP Cardiovascular: Regular rate and rhythm, S1/S2 Lungs: Coarse breath sounds bilaterally with diffuse crackles, bases diminished. Abdomen: Soft nontender nondistended positive bowel sounds Extremities: Trace edema - Labs CBC & Chem 7: 12/15/17 07:13 12/15/17 07:13 Labs: Abnormal Lab Results - Last 24 Hours (Table) 12/15/17 12/15/17 Range/Units 07:13 07:13 WBC 13.4 H (3.8-10.6) k/uL RBC 3.73 L (3.80-5.40) m/uL Hgb 11.1 L (11.4-16.0) gm/dL Neutrophils # 10.9 H (1.3-7.7) k/uL Sodium 135 L (137-145) mmol/L Potassium 5.6 H (3.5-5.1) mmol/L Chloride 92 L (98-107) mmol/L Carbon Dioxide 37 H (22-30) mmol/L BUN 83 H (7-17) mg/dL Creatinine 1.34 H (0.52-1.04) mg/dL Glucose 101 H (74-99) mg/dL Assessment and Plan Assessment: Assessment Acute hypoxic respiratory failure Bibasilar infiltrates and pleural effusions Acute exacerbation of congestive heart failure Hypertensive emergency NSTEMI History of multifocal atrial tachycardia Recent RLE DVT Severe persistent asthma Leukocytosis likely secondary to steroids Hyponatremia, fluid overload Mild hyperkalemia Acute kidney injury on chronic kidney disease stage III Obesity, concern for MAIRA, patient has history of MAIRA but declines to wear CPAP Plan Patient is cleared from pulmonary standpoint for discharge to ECF Medications reviewed and continued as ordered IV Lasix has been switched over to oral Discontinue Clifford today s/p Thoracentesis, see procedure notes Eliquis will be restarted, heparin stopped Continue BiPAP support Supplemental oxygen to maintain oxygen saturations greater than 90% or above Diuresis Cardiology recommendations Pulmicort and duo nebs Prednisone taper Antibiotics per primary team Incentive spirometry and pulmonary hygiene Daily weights and I/Os Monitor urine output and renal function Continue Singulair and Xolair outpatient Patient will be reeducated on obstructive sleep apnea and congestive heart failure. She will be encouraged to use CPAP. GI and DVT prophylaxis: Eliquis and Protonix We will continue to follow along. I performed an examination of the patient and discussed their management with the nurse practitioner. I have reviewed the nurse practitioner's note and agree with the documented findings and plan of care. <Antonia Jalloh - Last Filed: 12/15/17 10:23> Objective - Vital Signs Vital signs: Vital Signs Temp 97 F L 12/15/17 08:00 Pulse 80 12/15/17 09:29 Resp 20 12/15/17 08:00 BP 120/56 12/15/17 08:00 Pulse Ox 98 12/15/17 08:00 Intake & Output 12/14/17 12/15/17 12/15/17 18:59 06:59 18:59 Intake Total 804 960 240 Output Total 1000 2250 Balance -196 -1290 240 Weight 114.3 kg 114 kg Intake: Oral 804 960 240 Output: Urine 1000 2250 Stool 0 Other: Voiding Method Indwelling Catheter Indwelling Catheter # Voids 1 0 - Labs CBC & Chem 7: 12/15/17 07:13 12/15/17 07:13 Labs: Abnormal Lab Results - Last 24 Hours (Table) 12/15/17 12/15/17 Range/Units 07:13 07:13 WBC 13.4 H (3.8-10.6) k/uL RBC 3.73 L (3.80-5.40) m/uL Hgb 11.1 L (11.4-16.0) gm/dL Neutrophils # 10.9 H (1.3-7.7) k/uL Sodium 135 L (137-145) mmol/L Potassium 5.6 H (3.5-5.1) mmol/L Chloride 92 L (98-107) mmol/L Carbon Dioxide 37 H (22-30) mmol/L BUN 83 H (7-17) mg/dL Creatinine 1.34 H (0.52-1.04) mg/dL Glucose 101 H (74-99) mg/dL Assessment and Plan Assessment: Patient seen and examined. Patient states her breathing is better today. Change Lasix to 40mg PO BID, discontinue clifford, O2 at 2L NC. Continue Eliquis. Discharge planning. Ok to DC from pulmonary standpoint. ~Antonia Jalloh DO
[2017-12-15 12:11] VITALS: BP 113/65; RESP 16; TEMP 97.4
--- NOTE | 2017-12-15 13:19 | P.DS ---
Providers Date of admission: 12/07/17 02:48 Expected date of discharge: 12/15/17 Attending physician: Dominique Rankin Consults: 12/07/17 02:50 Consult Physician Routine Consulting Provider: [facility] Consult Reason/Comments: CHF Do you want consulting provider notified?: Yes 12/07/17 11:54 Consult Physician Routine Consulting Provider: Jf Beltre Consult Reason/Comments: COPD, CHF Do you want consulting provider notified?: Yes [facility] [place] [place] [facility] Course: Final Diagnoses: -Acute hypoxic respiratory failure requiring BiPAP on admission and is presently on 3 L significantly improved respiratory status. secondary to congestive heart failure chronic diastolic dysfunction with acute exacerbation. patient appears to have mitral stenosis -Chronic kidney disease stage 3 secondary to probable hypertensive nephrosclerosis patient's present creatinine is around her baseline -Accelerated hypertension -COPD patient will be resumed on oral steroids but suspicion is low that patient has COPD exacerbation , low suspicion for pneumonia as well patient will be resumed on Augmentin , discontinued upon discharge -Recent right lower extremity DVT for which patient is on eliquis which will be continued -Elevated troponin secondary to heart failure and chronic kidney disease -History of multifocal atrial tachycardia -Obesity will need a sleep study as an outpatient -Gastroesophageal reflux disease Hospital course:72-year-old female admitted for congestive heart failure chronic diastolic dysfunction with acute exacerbation, patient remained off BiPAP most of the day today. Patient requirements of BiPAP has come down significantly. Patient remains on 80 IV twice a day of Lasix with good urine output. Patient's serum creatinine remained fairly stable. White blood cell count is 19,000 fairly stable, mostly neutrophilic leukocytosis from my systemic steroids. Patient is much more awake. Feeling much better 12/09/2017 Significantly improved shortness of breath. Patient is presently on 3 L of oxygen tolerating well improved pulmonary edema remains on IV Lasix. Creatinine remained fairly stable patient does have chronic kidney disease stage III 12/02/17 This is a pleasant 77 years old lady who presents with acute on chronic CHF exacerbation, associated with moderate to severe mitral stenosis. Associated with bilateral pleural effusion, right more than left and she's been treated with diuresis and BiPAP since admission, with some improvement. Patient has been evaluated by pulmonary team and the plan for thoracocentesis on the right side, with holding Eliquis. Patient was placed on heparin during this time as per pulmonary team. we will discuss it with the pulmonary team and review their recommendation. Patient currently still on Eliquis. Patient has recent history of left leg DVT about 2 weeks ago as per patient. Also we lowered the dose of prednisone on admission from 40 mg to 30 mg starting from 12/10/2017 Her creatinine on admission 1.9 and improved to 1.4. Patient is also on Augmentin and statin. She is taken Lasix 80 mg twice a day and that helped her breathing. i discussed with the pt that holding her eluquis will put her at higher risk of recurrent DVT and/or PE which can be fatal. Patient verbalized understanding and she agreed with this plan. I think This plan has more benefits the risks Vitals checked looks his stable and currently blood pressure 134/67 and heart rate at 60 12/13/2017 patient is seen and examined at bedside. Was sitting in the chair. She denies abdominal or chest pain. She tells her breathing is very good and she is not making much phlegm as well. Blevins is still in a Place.patient was not on Blevins at home. Was not on home oxygen. And she was on tapers dose of steroids at home. We will decrease her prednisone from 30-20 mg daily. He is going for right thoracocentesis today. Eliquis is still on hold . Her leukocytosis is improving from 15.6 to 13.4 K. Creatinine is almost stable at 1.37 yesterday to 1.49 today. 12/14/2017 Patient is a status post right thoracocentesis. And being evaluated for possible left pleural tap today. Patient currently denies any chest pain or dyspnea and she is breathing quietly. She remains on 3 L oxygen via nasal cannula. Patient told me today she used to be on oxygen at rehab. Eliquis still on hold with subcutaneous heparin for bridging. Patient has a Blevins. No chest pain and her cough is better 12/15/2017 pleural cytology pending.Significant clinical improvement. Cleared by cardiology and pulmonary, for discharge. Discharge to [facility]acute rehab in a stable condition with guarded prognosis. GENERAL: The patient is alert and oriented x3, not in any acute distress. Well developed, well nourished. HEENT: Pupils are round and equally reacting to light. EOMI. No scleral icterus. No conjunctival pallor. Normocephalic, atraumatic. No pharyngeal erythema. No thyromegaly. CARDIOVASCULAR: S1 and S2 present. No murmurs, rubs, or gallops. -PULMONARY: Chest is clear to auscultation, bilateral scattered crackles. Decreased breath sounds ABDOMEN: Soft, nontender, nondistended, normoactive bowel sounds. No palpable organomegaly. MUSCULOSKELETAL: No joint swelling or deformity. EXTREMITIES: No cyanosis, clubbing,. 2+ Bilateral pedal edema. NEUROLOGICAL: Gross neurological examination did not reveal any focal deficits. SKIN: No rashes. The impression and plan of care has been dictated as directed. : I performed a history and examination of this patient, discussed the same with the dictator. I agree with the dictator's note ,documented as a scribe. Any additional findings or plans will be noted. Time taken: 35 minutes Patient Condition at Discharge: Stable Plan - Discharge Summary Discharge Rx Participant: No New Discharge Prescriptions: New Apixaban [Eliquis] 5 mg PO BID tab ARIPiprazole [Abilify] 5 mg PO DAILY tab Diltiazem Cd [Cardizem CD] 360 mg PO DAILY cap.er.24h Furosemide [Lasix] 40 mg PO BID@0900,1600 tab INSULIN LISPRO (HumaLOG) [humaLOG] 0 unit SQ ACHS #1 vial Continue Acetaminophen [Tylenol] 650 mg PO Q6H PRN PRN Reason: Pain Cholecalciferol [Vitamin D3] 2,000 unit PO HS Atorvastatin [Lipitor] 40 mg PO HS Magnesium Oxide 400 mg PO HS Famotidine 20 mg PO DAILY Montelukast [Singulair] 10 mg PO DAILY Ammonium Lactate Cream [Lac-Hydrin 12% Cream] 1 applic TOPICAL BID predniSONE See Taper PO DIRECTED #0 traMADol HCL [Ultram] 50 mg PO TID PRN #9 tablet PRN Reason: Pain Changed Ipratropium-Albuterol Nebulize [Duoneb 0.5 mg-3 mg/3 ml Soln] 3 ml INHALATION QID #0 Discontinued Diltiazem HCl [Diltiazem 24Hr ER] 300 mg PO DAILY Furosemide [Lasix] 40 mg PO DAILY Potassium Chloride [Klor-Con 20] 20 meq PO DAILY ARIPiprazole [Abilify] See Taper PO DIRECTED Amoxic-Pot Clav 875-125Mg [Augmentin 875-125] 1 tab PO Q12HR Zolpidem [Ambien] 5 mg PO HS PRN PRN Reason: Insomnia Albuterol Inhaler [Ventolin Hfa Inhaler] 2 puff INHALATION RT-Q6H PRN PRN Reason: Shortness Of Breath Or Wheezing Tiotropium Larned [Spiriva] 1 cap INHALATION DIRECTED Discharge Medication List Acetaminophen [Tylenol] 650 mg PO Q6H PRN 07/31/13 [History] Cholecalciferol [Vitamin D3] 2,000 unit PO HS 07/31/13 [History] Ammonium Lactate Cream [Lac-Hydrin 12% Cream] 1 applic TOPICAL BID 12/07/17 [ History] Atorvastatin [Lipitor] 40 mg PO HS 12/07/17 [History] Famotidine 20 mg PO DAILY 12/07/17 [History] Magnesium Oxide 400 mg PO HS 12/07/17 [History] Montelukast [Singulair] 10 mg PO DAILY 12/07/17 [History] ARIPiprazole [Abilify] 5 mg PO DAILY tab 12/15/17 [Rx] Apixaban [Eliquis] 5 mg PO BID tab 12/15/17 [Rx] Diltiazem Cd [Cardizem CD] 360 mg PO DAILY cap.er.24h 12/15/17 [Rx] Furosemide [Lasix] 40 mg PO BID@0900,1600 tab 12/15/17 [Rx] INSULIN LISPRO (HumaLOG) [humaLOG] 0 unit SQ ACHS #1 vial 12/15/17 [Rx] Ipratropium-Albuterol Nebulize [Duoneb 0.5 mg-3 mg/3 ml Soln] 3 ml INHALATION QID #0 12/15/17 [Rx] predniSONE See Taper PO DIRECTED #0 12/15/17 [Rx] traMADol HCL [Ultram] 50 mg PO TID PRN #9 tablet 12/15/17 [Rx] Follow up Appointment(s)/Referral(s): Martin Kent DO [Primary Care Provider] - 1 Week (After discharge from subacute rehab) Jf Beltre MD [STAFF PHYSICIAN] - 2 Weeks Sam Butler MD [REFERRING] - 1 Week Activity/Diet/Wound Care/Special Instructions: Tran Montoya cbc,bmp in 2 days No smoking Diet: Cardiac, consistent carb Activity: As tolerated 2 L nasal cannula O2 Discharge Disposition: TRANSFER TO SNF/ECF
[2017-12-15 13:27] VITALS: PULSE 82
[2017-12-15] MEDS ORDERED: FUROSEMIDE 40 MG TAB PO SCH (16:00)
== END 2017-12-15 16:24 | DRG 291 ==
LOC: EC 00:50 → 6ICU 02:48 → 6SEL 11:34
PROVIDERS: ADMIT Hospitalist; ATTEND Hospitalist
PROC: 0W993ZZ Drainage of Right Pleural Cavity, Percutaneous Approach (ICD-10-PCS; principal; 2017-12-13)
PROC: 0W9B3ZZ Drainage of Left Pleural Cavity, Percutaneous Approach (ICD-10-PCS; 2017-12-14)
DX: I13.0 Hypertensive heart and chronic kidney disease with heart failure and stage 1 through stage 4 chronic kidney disease, or unspecified chronic kidney disease (principal); I50.33 Acute on chronic diastolic (congestive) heart failure; J96.01 Acute respiratory failure with hypoxia; E87.1 Hypo-osmolality and hyponatremia; I16.1 Hypertensive emergency; J44.0 Chronic obstructive pulmonary disease with (acute) lower respiratory infection; J44.1 Chronic obstructive pulmonary disease with (acute) exacerbation; N17.9 Acute kidney failure, unspecified; E66.9 Obesity, unspecified; Z68.38 Body mass index [BMI] 38.0-38.9, adult; E78.5 Hyperlipidemia, unspecified; E87.5 Hyperkalemia; F17.200 Nicotine dependence, unspecified, uncomplicated; G47.33 Obstructive sleep apnea (adult) (pediatric); I05.0 Rheumatic mitral stenosis; I48.91 Unspecified atrial fibrillation; I49.3 Ventricular premature depolarization; J45.50 Severe persistent asthma, uncomplicated; K21.9 Gastro-esophageal reflux disease without esophagitis; K58.9 Irritable bowel syndrome, unspecified; M79.7 Fibromyalgia; N18.3 Chronic kidney disease, stage 3 (moderate); T38.0X5A Adverse effect of glucocorticoids and synthetic analogues, initial encounter; Y95 Nosocomial condition; Z79.01 Long term (current) use of anticoagulants; Z82.49 Family history of ischemic heart disease and other diseases of the circulatory system; Z86.718 Personal history of other venous thrombosis and embolism; Z86.73 Personal history of transient ischemic attack (TIA), and cerebral infarction without residual deficits; Z90.710 Acquired absence of both cervix and uterus; Z98.42 Cataract extraction status, left eye; Z98.41 Cataract extraction status, right eye; Z96.1 Presence of intraocular lens; Z99.3 Dependence on wheelchair; Z88.1 Allergy status to other antibiotic agents; Z88.2 Allergy status to sulfonamides; Z79.51 Long term (current) use of inhaled steroids; Z79.899 Other long term (current) drug therapy
CPT/HCPCS: 36415; 71045; 71046; 76604; 80048; 80053; 80076; 81001; 82550; 82553; 82945; 83605; 83615; 83735; 83880; 84157; 84460; 84484; 85025; 85027; 85610; 85730; 87040; 88108; 88305; 88341; 88342; 89050; 93005; 94640; 94660; 94760; 96365; 96366; 96368; 96375; 99285

== ENCOUNTER 2017-12-20 19:29 | Inpatient (IN) | payer MEDICARE ==
[2017-12-20] MEDS ORDERED: ALBUTEROL NEBULIZED 2.5 MG/3 ML INHALATION STA (19:30)
[2017-12-20] MEDS ORDERED: IPRATROPIUM 0.5 MG/2.5 ML NEBU INHALATION STA (19:30)
[2017-12-20] MEDS ORDERED: methylPREDNISolone SOD SUCCI 125 MG/2 ML VIAL IV STA (19:30)
[2017-12-20 19:38] LABS: Glucose,Whole Blood 185 mg/dL (75-99)
--- NOTE | 2017-12-20 19:45 | ED ---
SOB HPI - General Chief Complaint: Shortness of Breath Stated Complaint: GAGAN Time Seen by Provider: 12/20/17 19:30 Source: patient, EMS, RN notes reviewed, old records reviewed Mode of arrival: EMS Limitations: altered mental status, physical limitation - History of Present Illness Initial Comments: This is a 77-year-old female the ER for hypoxia and difficulty breathing. Patient's brought in on CPAP, patient with history secondary to clinical condition. Patient was recently discharged with pneumonia, patient is having shortness of breath throughout the day with increasing hypoxia MD Complaint: shortness of breath, cough, chest pain -: hour(s) (5) Severity scale (1-10): 10 Improves With: oxygen, bronchodilators, medication Known History Of: COPD, asthma, congestive heart failure, recurrent pneumonia Associated Symptoms: fever, cough, sputum production, nausea/vomiting Treatments Prior to Arrival: oxygen, bronchodilator, NIPPV - Related Data Home Medications Medication Instructions Recorded Confirmed Acetaminophen [Tylenol] 650 mg PO Q6H PRN 07/31/13 12/20/17 Cholecalciferol [Vitamin D3] 2,000 unit PO HS 07/31/13 12/20/17 Ammonium Lactate Cream [Lac-Hydrin 1 applic TOPICAL BID 12/07/17 12/20/17 12% Cream] Atorvastatin [Lipitor] 40 mg PO HS 12/07/17 12/20/17 Famotidine 20 mg PO DAILY 12/07/17 12/20/17 Magnesium Oxide 400 mg PO HS 12/07/17 12/20/17 Montelukast [Singulair] 10 mg PO HS 12/07/17 12/20/17 Apixaban [Eliquis] 5 mg PO BID@0900,1600 12/20/17 12/20/17 INSULIN LISPRO (HumaLOG) [humaLOG] See Protocol SQ ACHS 12/20/17 12/20/17 Ipratropium-Albuterol Nebulize 3 ml INHALATION RT-Q4H PRN 12/20/17 12/20/17 [Duoneb 0.5 mg-3 mg/3 ml Soln] Ipratropium-Albuterol Nebulize 3 ml INHALATION RT-QID@05,11,17,23 12/20/1712/20 [Duoneb 0.5 mg-3 mg/3 ml Soln] Menthol-Zinc Oxide Oint 1 applic TOPICAL TID 12/20/17 12/20/17 [Calmoseptine Oint] Metolazone [Zaroxolyn] 5 mg PO DAILY 12/20/17 12/20/17 predniSONE See Taper PO DIRECTED 12/20/17 12/20/17 Previous Rx's Medication Instructions Recorded ARIPiprazole [Abilify] 5 mg PO DAILY tab 12/15/17 Diltiazem Cd [Cardizem CD] 360 mg PO DAILY cap.er.24h 12/15/17 Furosemide [Lasix] 40 mg PO BID@0900,1600 tab 12/15/17 Allergies Allergy/AdvReac Type Severity Reaction Status Date / Time salicylic acid Allergy Unknown Verified 12/20/17 19:40 erythromycin base AdvReac Rash/Hives Verified 12/20/17 19:40 [Erythromycin Base] Sulfa (Sulfonamide AdvReac Rash/Hives Verified 12/20/17 19:40 Antibiotics) Review of Systems ROS Statement: Those systems with pertinent positive or pertinent negative responses have been documented in the HPI. ROS Other: All systems not noted in ROS Statement are negative. Past Medical History Past Medical History: Atrial Fibrillation, Asthma, Heart Failure, COPD, Eye Disorder, Fibromyalgia, GERD/Reflux, Hyperlipidemia, Hypertension, Osteoarthritis (OA), Pneumonia, Renal Disease, Supraventricular Tachycardia (SVT ) Additional Past Medical History / Comment(s): Pt recently admitted to [facility] with SOB, CHF, elevated blood sugars, Afib, SVT, dvt L upper leg and possible PE and possible TIA-discharged to [facility] for rehab. Pt has been basically wheelchair bound-stands pivots only and has been wearing oxygen 24/ since admitting to rehab. Other HX: TIAs and family states has L sided weakness but were never told she had a CVA, bilateral lower leg cellulitis/ wounds/edema, L4 fracture after fall in 2013/chronic back pain, DJD, CKD stage III, uirnary incontinence at times, UTIs, constipation, "cloudy" corneas. 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 Past Anesthesia/Blood Transfusion Reactions: Blood Transfusion Reaction, Motion Sickness Additional Past Anesthesia/Blood Transfusion Reaction / Comment(s): 1961 RECEIVED BLOOD AFTER GIVING -BROKE OUT IN [facility] Past Psychological History: Anxiety Smoking Status: Current some day smoker - Past Family History Father Family Medical History: Congestive Heart Failure (CHF), Hyperlipidemia, Hypertension, Renal Disease Additional Family Medical History / Comment(s): Father lived to be 90yrs old. Mother Family Medical History: Congestive Heart Failure (CHF), Hypertension Additional Family Medical History / Comment(s): Mother in her 80s. 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 Patient will be admitted for acute care - Lab Data Result diagrams: 12/20/17 19:38 12/20/17 19:38 Lab Results 12/20/17 12/20/17 12/20/17 Range/Units 19:37 19:38 19:38 WBC 8.8 (3.8-10.6) k/uL RBC 3.30 L (3.80-5.40) m/uL Hgb 9.6 L D (11.4-16.0) gm/dL Hct 30.1 L (34.0-46.0) % MCV 91.2 (80.0-100.0) fL MCH 29.1 (25.0-35.0) pg MCHC 31.9 (31.0-37.0) g/dL RDW 15.5 (11.5-15.5) % Plt Count 209 (150-450) k/uL Neutrophils % 90 % Lymphocytes % 6 % Monocytes % 3 % Eosinophils % 0 % Basophils % 0 % Neutrophils # 8.0 H (1.3-7.7) k/uL Lymphocytes # 0.5 L (1.0-4.8) k/uL Monocytes # 0.2 (0-1.0) k/uL Eosinophils # 0.0 (0-0.7) k/uL Basophils # 0.0 (0-0.2) k/uL PT (9.0-12.0) sec INR (<1.2) APTT (22.0-30.0) sec Sodium (137-145) mmol/L Potassium (3.5-5.1) mmol/L Chloride (98-107) mmol/L Carbon Dioxide (22-30) mmol/L Anion Gap mmol/L BUN (7-17) mg/dL Creatinine (0.52-1.04) mg/dL Est GFR (CKD-EPI)AfAm (>60 ml/min/1.73 sqM) Est GFR (CKD-EPI)NonAf (>60 ml/min/1.73 sqM) Glucose (74-99) mg/dL POC Glucose (mg/dL) 185 H (75-99) mg/dL POC Glu Traffic Counter ID Aicha Siddiqi Calcium (8.4-10.2) mg/dL Magnesium (1.6-2.3) mg/dL Total Bilirubin (0.2-1.3) mg/dL AST (14-36) U/L ALT (9-52) U/L Alkaline Phosphatase (38-126) U/L Total Creatine Kinase 965 H (30-135) U/L Total Protein (6.3-8.2) g/dL Albumin (3.5-5.0) g/dL 12/20/17 12/20/17 Range/Units 19:38 19:38 WBC (3.8-10.6) k/uL RBC (3.80-5.40) m/uL Hgb (11.4-16.0) gm/dL Hct (34.0-46.0) % MCV (80.0-100.0) fL MCH (25.0-35.0) pg MCHC (31.0-37.0) g/dL RDW (11.5-15.5) % Plt Count (150-450) k/uL Neutrophils % % Lymphocytes % % Monocytes % % Eosinophils % % Basophils % % Neutrophils # (1.3-7.7) k/uL Lymphocytes # (1.0-4.8) k/uL Monocytes # (0-1.0) k/uL Eosinophils # (0-0.7) k/uL Basophils # (0-0.2) k/uL PT 10.6 (9.0-12.0) sec INR 1.1 (<1.2) APTT 25.1 (22.0-30.0) sec Sodium 127 L (137-145) mmol/L Potassium 6.8 H* (3.5-5.1) mmol/L Chloride 87 L (98-107) mmol/L Carbon Dioxide 32 H (22-30) mmol/L Anion Gap 8 mmol/L BUN 87 H (7-17) mg/dL Creatinine 2.55 H (0.52-1.04) mg/dL Est GFR (CKD-EPI)AfAm 21 (>60 ml/min/1.73 sqM) Est GFR (CKD-EPI)NonAf 18 (>60 ml/min/1.73 sqM) Glucose 167 H (74-99) mg/dL POC Glucose (mg/dL) (75-99) mg/dL POC Glu Traffic Counter ID Calcium 8.0 L (8.4-10.2) mg/dL Magnesium 2.6 H (1.6-2.3) mg/dL Total Bilirubin 0.7 (0.2-1.3) mg/dL AST 183 H (14-36) U/L ALT 298 H (9-52) U/L Alkaline Phosphatase 72 (38-126) U/L Total Creatine Kinase (30-135) U/L Total Protein 5.4 L (6.3-8.2) g/dL Albumin 3.0 L (3.5-5.0) g/dL - EKG Data -: EKG Interpreted by Me (EKG shows A. fib rate of 81, QRS 86, QTc 406) - Radiology Data Radiology results: report reviewed (S x-ray shows CHF possibly underlying infiltrate), image reviewed Critical Care Time Critical Care Time: Yes Total Critical Care Time: 31 Disposition Clinical Impression: Adult respiratory distress syndrome, Acute exacerbation of chronic obstructive airways disease, Acute respiratory failure, HCAP (healthcare-associated pneumonia), CHF (congestive heart failure), Respiratory distress, ARF (acute renal failure), Hyperkalemia Disposition: ADMITTED IP TO THIS HOSP Condition: Critical Is patient prescribed a controlled substance at d/c from ED?: No Referrals: Sam Butler MD [Primary Care Provider] - 1-2 days
[2017-12-20 19:50] LABS: Basophils % (A) 0 %; Eosinophils % (A) 0 %; HCT 30.1 % (34.0-46.0); Lymphocytes # (A) 0.5 k/uL (1.0-4.8); Lymphocytes % (A) 6 %; MCH 29.1 pg (25.0-35.0); MCHC 31.9 g/dL (31.0-37.0); MCV 91.2 fL (80.0-100.0); Monocytes # (A) 0.2 k/uL (0-1.0); Monocytes % (A) 3 %; Neutrophils % (A) 90 %; Platelet Count 209 k/uL (150-450); RDW 15.5 % (11.5-15.5); WBC 8.8 k/uL (3.8-10.6)
[2017-12-20] MEDS ORDERED: MORPHINE SULFATE 4 MG/ML SYRINGE IVP STA (19:53)
[2017-12-20 19:54] LABS: HGB 9.6 gm/dL (11.4-16.0)
[2017-12-20 19:59] LABS: INR 1.1 (<1.2); Partial Thromboplastin Time 25.1 sec (22.0-30.0); Prothrombin Time 10.6 sec (9.0-12.0)
[2017-12-20 20:00] LABS: Magnesium 2.6 mg/dL (1.6-2.3); Total Bilirubin 0.7 mg/dL (0.2-1.3); Total Protein 5.4 g/dL (6.3-8.2)
[2017-12-20 20:02] LABS: Potassium 6.8 mmol/L (3.5-5.1)
--- NOTE | 2017-12-20 20:07 | XR ---
EXAMINATION TYPE: XR chest 1V portable DATE OF EXAM: 12/20/2017 COMPARISON: December 14, 2017 HISTORY: Short of breath TECHNIQUE: Single frontal view of the chest is obtained. FINDINGS: There is extensive opacification right hemithorax consistent with pleural effusion and pul monary consolidation. Heart is probably enlarged. Left lung is fairly clear. There are chest leads. IMPRESSION: There is increasing right pleural effusion and right pulmonary consolidation compared to last exam. This could relate to RDS. Congestive heart failure is possible.
[2017-12-20] MEDS ORDERED: SODIUM CHLORIDE 0.9% 1,000 ML IV STA ×2 (20:09)
[2017-12-20] MEDS ORDERED: LEVOFLOXACIN 750MG-D5W PMX 750 MG in DEXTROSE/WATER 1 150ML.BAG IVPB STA (20:09)
[2017-12-20] MEDS ORDERED: PIPERACILLIN-TAZOBACTAM 3.375 GM in DEXTROSE/WATER 1 50ML.BAG IVPB STA (20:09)
[2017-12-20] MEDS ORDERED: SODIUM CHLORIDE 0.9% 500 ML 500 ML IV STA (20:09)
[2017-12-20] MEDS ORDERED: PNEUMONIA PROTOCOL UTILIZED 1 EACH MISC PO PRN (20:09)
[2017-12-20] MEDS ORDERED: SODIUM BICARB 8.4% 50 ML SYR (1 MEQ/ML) IV ONE (20:11)
[2017-12-20] MEDS ORDERED: INSULIN REGULAR 100 UNIT/ML VIAL IV ONE (20:11)
[2017-12-20] MEDS ORDERED: DEXTROSE 50%-WATER 50 ML SYRINGE IVP STA (20:11)
[2017-12-20 20:17] LABS: Creatine Kinase MB 20.1 ng/mL (0.0-2.4)
[2017-12-20 20:28] LABS: Troponin I 0.049 ng/mL (0.000-0.034)
[2017-12-20 22:11] LABS: Glucose,Whole Blood 196 mg/dL (75-99)
[2017-12-20] MEDS ORDERED: LORazepam 2 MG/ML INJ IV STA (23:37)
[2017-12-21 01:14] LABS: Glucose,Whole Blood 125 mg/dL (75-99)
[2017-12-21 02:11] LABS: Albumin 2.8 g/dL (3.5-5.0); Calcium 7.9 mg/dL (8.4-10.2); Total Bilirubin 0.6 mg/dL (0.2-1.3); Total Protein 5.2 g/dL (6.3-8.2)
[2017-12-21 02:32] LABS: Potassium 6.6 mmol/L (3.5-5.1)
[2017-12-21] MEDS ORDERED: SODIUM BICARB 8.4% 50 ML SYR (1 MEQ/ML) IV STA (02:48)
[2017-12-21] MEDS ORDERED: DEXTROSE 50%-WATER 50 ML SYRINGE IVP STA ×3 (02:48→14:56)
[2017-12-21] MEDS ORDERED: INSULIN REGULAR 100 UNIT/ML VIAL IV ONE ×3 (03:00→15:00)
[2017-12-21] MEDS ORDERED: CALCIUM GLUCONATE 2,000 MG in SODIUM CHLORIDE 0.9% 100 ML IVPB ONE (03:00)
[2017-12-21] MEDS ORDERED: FUROSEMIDE 10 MG/ML 4 ML VIAL IV STA (03:13)
[2017-12-21 05:17] LABS: Glucose,Whole Blood 158 mg/dL (75-99)
--- NOTE | 2017-12-21 06:28 | XR ---
EXAMINATION TYPE: XR chest 1V DATE OF EXAM: 12/21/2017 CLINICAL HISTORY: Difficulty breathing and pneumonia progress study. TECHNIQUE: Single AP portable upright view of the chest is obtained. COMPARISON: Chest x-ray from one day earlier and older studies. FINDINGS: Cardiac silhouette size is stable and enlarged with atherosclerotic thoracic aorta. There is persistent diffuse right lung opacity with sparing of right lung apex and left basilar opacity. Th ere is interval improvement in left hilar opacity. Silhouetting of both hemidiaphragms remains presen t. Osseous structures are intact. IMPRESSION: Persistent cardiomegaly with probable small bilateral pleural effusions. There is persist ent left basilar atelectasis and/or infiltrate and more prominent diffuse right lung infiltrate and/o r edema. There is interval improvement in left hilar infiltrate.
[2017-12-21] MEDS ORDERED: KETAMINE 10 MG/ML 20 ML VIAL IV ONE (06:34)
[2017-12-21] MEDS ORDERED: MIDAZOLAM HCL 100 MG in SODIUM CHLORIDE 0.9% 80 ML IV SCH (06:45)
[2017-12-21] MEDS ORDERED: fentaNYL (PF) 2,500 MCG in SODIUM CHLORIDE 0.9% 200 ML IV SCH (06:45)
[2017-12-21] MEDS ORDERED: LORazepam 2 MG/ML INJ IV STA (07:06)
--- NOTE | 2017-12-21 08:00 | XR ---
EXAMINATION TYPE: XR chest 1V DATE OF EXAM: 12/21/2017 CLINICAL HISTORY: Difficulty breathing had to be intubated. TECHNIQUE: Single AP portable supine view of the chest is obtained. COMPARISON: Chest x-ray from earlier today and older studies. FINDINGS: There is interval placement of endotracheal tube with tip at aortic knob level, approximat kristie 3 cm above the toni. Cardiac silhouette size is stable and mildly enlarged with atherosclerotic thoracic aorta. There is p ersistent diffuse right lung opacity with sparing of right lung apex and left basilar opacity. Silhou etting of both hemidiaphragms remains present. Osseous structures are intact. IMPRESSION: New Endotracheal tube is satisfactory in position. There is persistent mild cardiomegaly with small left pleural effusion and associated left basilar atelectasis and/or infiltrate and diffus e right lung infiltrate and/or less likely edema.
[2017-12-21] MEDS: IPRATROPIUM-ALBUTEROL 3 ML NEB INHALATION SCH ×4 (08:02→19:16)
[2017-12-21 08:11] LABS: ABG Base Excess 8.2 mmol/L; ABG HCO3 34 mmol/L (21-25); ABG Oxygen Saturation 99.9 % (94-97); ABG PCO2 61 mmHg (35-45); ABG PH 7.35 (7.35-7.45); ABG PO2 174 mmHg (83-108); ABG TCO2 36 mmol/L (19-24)
[2017-12-21 08:39] LABS: Albumin 2.6 g/dL (3.5-5.0); Calcium 8.2 mg/dL (8.4-10.2); Total Bilirubin 0.7 mg/dL (0.2-1.3)
[2017-12-21 08:44] LABS: Potassium 6.9 mmol/L (3.5-5.1)
[2017-12-21] MEDS: PIPERACILLIN-TAZOBACTAM 3.375 GM in DEXTROSE/WATER 1 50ML.BAG IVPB SCH ×2 (08:59→21:11)
[2017-12-21] MEDS ORDERED: ENOXAPARIN 30 MG/0.3 ML SYRINGE SQ SCH (09:00)
[2017-12-21] MEDS ORDERED: SODIUM POLYSTYRENE SULFONATE 15 GM/60 ML BOTTLE OG-TUBE STA (09:05)
[2017-12-21] MEDS ORDERED: CALCIUM GLUCONATE 1,000 MG in SODIUM CHLORIDE 0.9% 100 ML IVPB ONE (09:06)
[2017-12-21] MEDS ORDERED: ALBUTEROL NEB (CONC) 2.5 MG/0.5 ML INHALATION ONE ×3 (09:09→14:57)
[2017-12-21] MEDS ORDERED: ALBUTEROL NEBULIZED (CONC) 20 MG, SODIUM CHLORIDE 0.9% NEBULIZ 3 ML INHALATION ONE ×2 (09:13)
[2017-12-21] MEDS: SODIUM CHLORIDE 0.9% NEBULIZ 3 ML INHALATION ONE ×2 (09:37→15:35)
--- NOTE | 2017-12-21 09:39 | CT ---
EXAMINATION TYPE: CT brain wo con DATE OF EXAM: 12/21/2017 COMPARISON: None HISTORY: Right pupil enlarged. CT DLP: 797.4 mGycm Automated exposure control for dose reduction was used. FINDINGS: Extensive soft tissue in the nasopharynx correlate clinically. Could be retained secretions. Dense calcification in the basal ganglia. Moderate generalized degenerative change with diffuse low-a ttenuation the white matter which is nonspecific. No acute hemorrhage or mass effect. No midline shift. Calvarium intact. Intracranial atherosclerotic changes are noted IMPRESSION: DEGENERATIVE AND NONSPECIFIC WHITE MATTER CHANGES SUGGESTIVE OF REMOTE MICROVASCULAR ISCHEMIA. THERE IS NO ACUTE HEMORRHAGE. IF THERE IS CONCERN FOR ACUTE ISCHEMIA CORRELATE WITH MRI CLINICALLY WARRA NTED.
[2017-12-21] MEDS: PROPOFOL 1,000 MG in EMPTY BAG 1 BAG IV SCH ×3 (10:08→23:52)
[2017-12-21] MEDS ORDERED: FUROSEMIDE 10 MG/ML 10 ML VIAL IV STA (10:09)
[2017-12-21] MEDS ORDERED: NALOXONE 0.4 MG/ML 1 ML VIAL IV PRN (11:00)
--- NOTE | 2017-12-21 11:10 | P.CNPUL ---
History of Present Illness Consult date: 12/21/17 Reason for consult: dyspnea, hypoxemia Chief complaint: Hypoxia, SOB History of present illness: This is a 77-year-old female who presented emergency department with hypoxia and shortness of breath. The patient was at [facility] and was placed on 5 L nasal cannula and was still hypoxic. The patient was subsequently brought to the emergency department. EMS had placed the patient on CPAP. He was recently admitted on 12/07/2017 and discharged on 12/15/2017 with similar complaints. At that time the patient was found to have acute exacerbation of congestive heart failure. She was diuresed and had thoracentesis and was sent to [facility]. While in the emergency department physician was placed on BiPAP and given Lasix. She had poor response to the Lasix. She became obtunded and was subsequently intubated. The patient is seen and examined in the emergency department today. The patient has been hemodynamically stable she was found to have gram-negative bacteremia. She is currently intubated. She has been afebrile overnight. It is noted that the patient has a dilated right pupil and 2 mm left pupil. The right pupil is less reactive. The patient was sent for CT of the brain this morning which showed no acute process it did show remote ischemic changes. This is discussed with the family at length. Patient is unable to go for MRI at this time due to her respiratory status. We will repeat CT of the brain in 48 hours. Review of Systems All systems: negative Past Medical History Past Medical History: Atrial Fibrillation, Asthma, Heart Failure, COPD, Eye Disorder, Fibromyalgia, GERD/Reflux, Hyperlipidemia, Hypertension, Osteoarthritis (OA), Pneumonia, Renal Disease, Respiratory Disorder, Supraventricular Tachycardia (SVT) Additional Past Medical History / Comment(s): Pt recently admitted to [facility] on with acute hypoxic repiratory failure/bipap used-2ndary to CHF and had L thoracentesis for pleural effusion, also has been admitted to [facility] 11/26/17 with SOB, CHF, elevated blood sugars, Afib, SVT, dvt R upper leg and possible PE and possible TIA. OTHER HX: Increased confusion past few months, wheelchair bound-stands pivots only and has been wearing oxygen 24/7 since admitting to rehab. past TIAs and family states has L sided weakness but were never told she had a CVA, multifocal A tach, bilateral lower leg cellulitis/wounds/edema, L4 fracture after fall in 2013/chronic back pain, DJD, CKD stage III, uirnary incontinence at times, UTIs, constipation, "cloudy" corneas. History of Any Multi-Drug Resistant Organisms: None Reported Past Surgical History: Appendectomy, Bladder Surgery, Cholecystectomy, Hysterectomy, Orthopedic Surgery, Tonsillectomy Additional Past Surgical History / Comment(s): 12/14/17 L THORACENTESIS, JORDEN MAMMORY GLANDS REMOVED D/T DRAINAGE PROBLEMS, RT KNEE ARTHROSCOPY, BLADDER SLING -HAS METAL FASTENER IN PLACE, BILATERAL CATARACT REMOVALS WITH LENS IMPLANTS, COLONOSCOPIES. Past Anesthesia/Blood Transfusion Reactions: Blood Transfusion Reaction, Motion Sickness Additional Past Anesthesia/Blood Transfusion Reaction / Comment(s): 1961 RECEIVED BLOOD AFTER GIVING -BROKE OUT IN [facility] Smoking Status: Former smoker - Past Family History Father Family Medical History: Congestive Heart Failure (CHF), Hyperlipidemia, Hypertension, Renal Disease Additional Family Medical History / Comment(s): Father lived to be 90yrs old. Mother Family Medical History: Congestive Heart Failure (CHF), Hypertension Additional Family Medical History / Comment(s): Mother in her 80s. Medications and Allergies Home Medications Medication Instructions Recorded Confirmed Type Acetaminophen [Tylenol] 650 mg PO Q6H PRN 07/31/13 12/20/17 History Cholecalciferol [Vitamin D3] 2,000 unit PO HS 07/31/13 12/20/17 History Ammonium Lactate Cream [Lac-Hydrin 1 applic TOPICAL BID 12/07/17 12/20/17 History 12% Cream] Atorvastatin [Lipitor] 40 mg PO HS 12/07/17 12/20/17 History Famotidine 20 mg PO DAILY 12/07/17 12/20/17 History Magnesium Oxide 400 mg PO HS 12/07/17 12/20/17 History Montelukast [Singulair] 10 mg PO HS 12/07/17 12/20/17 History ARIPiprazole [Abilify] 5 mg PO DAILY tab 12/15/17 12/20/17 Rx Diltiazem Cd [Cardizem CD] 360 mg PO DAILY cap.er.24h 12/15/17 12/20/17 Rx Furosemide [Lasix] 40 mg PO BID@0900,1600 tab 12/15/17 12/20/17 Rx Apixaban [Eliquis] 5 mg PO BID@0900,1600 12/20/17 12/20/17 History INSULIN LISPRO (HumaLOG) [humaLOG] See Protocol SQ ACHS 12/20/17 12/20/17 History Ipratropium-Albuterol Nebulize 3 ml INHALATION RT-Q4H PRN 12/20/17 12/20/17 History [Duoneb 0.5 mg-3 mg/3 ml Soln] Ipratropium-Albuterol Nebulize 3 ml INHALATION RT-QID@05,11,17,23 12/20/1712/20 History [Duoneb 0.5 mg-3 mg/3 ml Soln] Menthol-Zinc Oxide Oint 1 applic TOPICAL TID 12/20/17 12/20/17 History [Calmoseptine Oint] Metolazone [Zaroxolyn] 5 mg PO DAILY 12/20/17 12/20/17 History predniSONE See Taper PO DIRECTED 12/20/17 12/20/17 History Allergies Allergy/AdvReac Type Severity Reaction Status Date / Time salicylic acid Allergy Unknown Verified 12/20/17 19:40 erythromycin base AdvReac Rash/Hives Verified 12/20/17 19:40 [Erythromycin Base] Sulfa (Sulfonamide AdvReac Rash/Hives Verified 12/20/17 19:40 Antibiotics) Physical Exam Osteopathic Statement: *. No significant issues noted on an osteopathic structural exam other than those noted in the History and Physical/Consult. Vitals: Vital Signs Temp Pulse Pulse Resp BP BP Pulse Ox 12/21/17 10:20 98 12/21/17 09:47 94 12/21/17 09:46 94 12/21/17 09:36 100 12/21/17 08:20 98 12/21/17 08:06 97 14 12/21/17 08:00 97.3 F L 98 14 96/65 94 L 12/21/17 07:23 93 1 L 96/59 96 12/21/17 07:00 90 14 100/58 96 12/21/17 06:30 92 34 H 117/68 91 L 12/21/17 06:05 88 24 128/60 92 L 12/21/17 05:30 88 24 142/63 91 L 12/21/17 04:43 87 27 H 108/57 93 L 12/21/17 03:50 95 28 H 123/60 94 L 12/21/17 03:00 84 21 108/69 92 L 12/21/17 02:00 87 22 112/53 93 L 12/21/17 01:00 95 20 104/56 94 L 12/21/17 00:38 93 28 H 124/56 94 L 12/20/17 23:12 80 29 H 133/53 94 L 12/20/17 22:01 83 22 126/58 96 12/20/17 21:00 82 12/20/17 20:45 82 28 H 139/67 95 12/20/17 20:31 85 12/20/17 20:06 81 12/20/17 20:00 76 12/20/17 19:50 77 30 H 132/68 98 12/20/17 19:43 75 12/20/17 19:31 98.0 F 101 H 26 H 148/65 98 Intake and Output 12/20/17 12/21/17 12/21/17 22:59 06:59 14:59 Intake Total 557.238 Output Total 350 66 Balance -350 491.238 Intake: IV 300 Sodium Chloride 0.9% 1, 300 000 ml @ 100 mls/hr IV . Q10H [facility] Rx#:[id number] Intake, IV Titration 257.238 Amount Midazolam HCl 100 mg In 7.238 Sodium Chloride 0.9% 80 ml @ 0.02 MG/KG/HR 2.31 mls/hr IV .Q24H [facility] Rx#: [id number] fentaNYL (PF) 2,500 mcg 250.000 In Sodium Chloride 0.9% 200 ml @ 1 MCG/KG/HR 11. 56 mls/hr IV .[id number] [facility] Rx#:[id number] Output: Urine 350 66 Other: Weight 115.666 kg Gen.: Patient is sedated and intubated Cardiovascular: Regular rate and rhythm, S1/S2 Lungs: Coarse breath sounds bilaterally Abdomen: Soft nontender nondistended positive bowel sounds Extremities: 1+ edema Neuro dilated and nonreactive right pupil Results - Laboratory Findings CBC and BMP: 12/20/17 19:38 12/21/17 07:43 ABG ABG pH 7.35 (7.35-7.45) 12/21/17 07:38 ABG pCO2 61 mmHg (35-45) H 12/21/17 07:38 ABG pO2 174 mmHg (83-108) H 12/21/17 07:38 ABG O2 Saturation 99.9 % (94-97) H 12/21/17 07:38 PT/INR, D-dimer PT 10.6 sec (9.0-12.0) 12/20/17 19:38 INR 1.1 (<1.2) 12/20/17 19:38 Abnormal lab findings: Abnormal Labs 12/20/17 12/20/17 12/20/17 19:37 19:38 19:38 RBC 3.30 L Hgb 9.6 L D Hct 30.1 L Neutrophils # 8.0 H Lymphocytes # 0.5 L ABG pCO2 ABG pO2 ABG HCO3 ABG Total CO2 ABG O2 Saturation Sodium Potassium Chloride Carbon Dioxide BUN Creatinine Glucose POC Glucose (mg/dL) 185 H Calcium Magnesium AST ALT Total Creatine Kinase 965 H CK-MB (CK-2) 20.1 H Troponin I 0.049 H* Total Protein Albumin 12/20/17 12/20/17 12/21/17 19:38 21:32 00:58 RBC Hgb Hct Neutrophils # Lymphocytes # ABG pCO2 ABG pO2 ABG HCO3 ABG Total CO2 ABG O2 Saturation Sodium 127 L Potassium 6.8 H* Chloride 87 L Carbon Dioxide 32 H BUN 87 H Creatinine 2.55 H Glucose 167 H POC Glucose (mg/dL) 196 H 125 H Calcium 8.0 L Magnesium 2.6 H AST 183 H ALT 298 H Total Creatine Kinase CK-MB (CK-2) Troponin I Total Protein 5.4 L Albumin 3.0 L 12/21/17 12/21/17 12/21/17 01:24 05:13 07:38 RBC Hgb Hct Neutrophils # Lymphocytes # ABG pCO2 61 H ABG pO2 174 H ABG HCO3 34 H ABG Total CO2 36 H ABG O2 Saturation 99.9 H Sodium 128 L Potassium 6.6 H* Chloride 87 L Carbon Dioxide 35 H BUN 87 H Creatinine 2.93 H Glucose 118 H POC Glucose (mg/dL) 158 H Calcium 7.9 L Magnesium AST 166 H ALT 294 H Total Creatine Kinase CK-MB (CK-2) Troponin I Total Protein 5.2 L Albumin 2.8 L 12/21/17 07:43 RBC Hgb Hct Neutrophils # Lymphocytes # ABG pCO2 ABG pO2 ABG HCO3 ABG Total CO2 ABG O2 Saturation Sodium 131 L Potassium 6.9 H* Chloride 88 L Carbon Dioxide 32 H BUN 91 H Creatinine 3.13 H Glucose 101 H POC Glucose (mg/dL) Calcium 8.2 L Magnesium AST 147 H ALT 274 H Total Creatine Kinase CK-MB (CK-2) Troponin I Total Protein 5.0 L Albumin 2.6 L - Diagnostic Findings Chest x-ray: report reviewed, image reviewed Assessment and Plan Assessment: Acute on chronic hypoxic and hypercapnic respiratory failure Bilateral infiltrates R > L concerning for pulmonary edema Small bilateral pleural effusions Gram negative bacteremia Acute exacerbation of CHF NSTEMI Hyponatremia Hyperkalemia ARUN on CKD 3-4 Anemia, normochromic, normocytic Transaminitis Moderate PCM Dilated right pupil of unclear etiology Remote ischemic changes on brain CT Hypertension Recent RLE DVT Severe persistent asthma Multifocal atrial tachycardia Obesity History of MAIRA Continue full ventilator support Diuresis, Lasix 60 mg IV BID Kayexalate D50 + Insulin, calcium gluconate, albuterol for K Blevins catheter with strict I/O ABX: Levaquin, Zosyn, consult ID Cardiology recommendations ABG at noon today Repeat lytes at noon CT brain results discussed with family, will repeat in 48 hours Discontinue Fentanyl and Versed, initiate Propofol drip Nephrology recommendations Restart Eliquis Protonix for GI prophylaxis Pulmicort, Duonebs Blood, urine, sputum cultures Serial CXR Tube feeds Code status discussed with family. Considering DNR, but would like time to discuss. Thank you for this consultation. We will continue to follow along. CCT 49 min Time with Patient: Greater than 30 (CCT 49 min)
[2017-12-21 11:32] LABS: Appearance,Urine Clear (Clear); Bilirubin,Urine Negative (Negative); Blood,Urine Small (Negative); Color,Urine Yellow; Glucose,Urine (UA) Negative (Negative); Hyaline Casts,Urine 9 /lpf (0-2); Ketones,Urine Negative (Negative); Leukocyte Esterase,Urine Negative (Negative); Mucus,Urine Rare /hpf; Nitrite,Urine Negative (Negative); Protein,Urine Trace (Negative); RBC,Urine 6 /hpf (0-5); Specific Gravity,Urine 1.012 (1.001-1.035); Squamous Epithelial Cell,Urine <1 /hpf (0-4); Urobilinogen,Urine <2.0 mg/dL (<2.0); WBC,Urine 2 /hpf (0-5)
[2017-12-21] MEDS: PANTOPRAZOLE 40 MG/10 ML VIAL IVP SCH ×2 (11:43→21:11)
[2017-12-21 11:53] LABS: ABG Base Excess 9.3 mmol/L; ABG HCO3 33 mmol/L (21-25); ABG Oxygen Saturation 97.5 % (94-97); ABG PCO2 45 mmHg (35-45); ABG PH 7.47 (7.35-7.45); ABG PO2 80 mmHg (83-108); ABG TCO2 34 mmol/L (19-24)
[2017-12-21] MEDS: CHLORHEXIDINE GLUCONATE 15 ML CUP MUCOUS MEM SCH ×2 (12:45→21:11)
--- NOTE | 2017-12-21 13:13 | P.HPIM ---
History of Present Illness 77-year-old pleasant female was treated for pulmonary edema heart failure exacerbation chronic diastolic dysfunction and was discharged home comes back again with shortness of breath found to have pulmonary edema again with bilateral infiltrates although pneumonia cannot be ruled out patient also has gram-negative bacteremia for which patient is presently on Zosyn was also given Levaquin. Patient overall clinical condition has worsened and patient was subsequently intubated patient is presently on assist-control ventilation with FiO2 of 60% and PEEP of 5 and the propofol drip for sedation not on any pressor support presently. Patient also has poor renal function with acute renal failure creatinine going up to 3.13 baseline creatinine around 1.3 during her last hospitalization. Patient doesn't have any fever or leukocytosis patient is bit hyponatremic. Patient was discharged on lisinopril Lasix increase the dose. Patient is severely hyperkalemic, did receive D5 with insulin, calcium gluconate and Related. Multiple consultants are following the patient including nephrology infectious disease and the family helper. Patient had, mid dilated right pupil because of the CAT scan of the head was done which did not show any acute abnormality did show previous strokes patient did have previous stroke with some residual weakness on left side Review of Systems Unable to obtain Past Medical History Past Medical History: Atrial Fibrillation, Asthma, Heart Failure, COPD, Eye Disorder, Fibromyalgia, GERD/Reflux, Hyperlipidemia, Hypertension, Osteoarthritis (OA), Pneumonia, Renal Disease, Respiratory Disorder, Supraventricular Tachycardia (SVT) Additional Past Medical History / Comment(s): Pt recently admitted to [facility] on with acute hypoxic repiratory failure/bipap used-2ndary to CHF and had L thoracentesis for pleural effusion, also has been admitted to [facility] 11/26/17 with SOB, CHF, elevated blood sugars, Afib, SVT, dvt R upper leg and possible PE and possible TIA. OTHER HX: Increased confusion past few months, wheelchair bound-stands pivots only and has been wearing oxygen 24/ since admitting to rehab. past TIAs and family states has L sided weakness but were never told she had a CVA, multifocal A tach, bilateral lower leg cellulitis/wounds/edema, L4 fracture after fall in 2013/chronic back pain, DJD, CKD stage III, uirnary incontinence at times, UTIs, constipation, "cloudy" corneas. History of Any Multi-Drug Resistant Organisms: None Reported Past Surgical History: Appendectomy, Bladder Surgery, Cholecystectomy, Hysterectomy, Orthopedic Surgery, Tonsillectomy Additional Past Surgical History / Comment(s): 12/14/17 L THORACENTESIS, JORDEN MAMMORY GLANDS REMOVED D/T DRAINAGE PROBLEMS, RT KNEE ARTHROSCOPY, BLADDER SLING -HAS METAL FASTENER IN PLACE, BILATERAL CATARACT REMOVALS WITH LENS IMPLANTS, COLONOSCOPIES. Past Anesthesia/Blood Transfusion Reactions: Blood Transfusion Reaction, Motion Sickness Additional Past Anesthesia/Blood Transfusion Reaction / Comment(s): 1961 RECEIVED BLOOD AFTER GIVING -BROKE OUT IN ONE Change Smoking Status: Former smoker - Past Family History Father Family Medical History: Congestive Heart Failure (CHF), Hyperlipidemia, Hypertension, Renal Disease Additional Family Medical History / Comment(s): Father lived to be 90yrs old. Mother Family Medical History: Congestive Heart Failure (CHF), Hypertension Additional Family Medical History / Comment(s): Mother in her 80s. Medications and Allergies Home Medications Medication Instructions Recorded Confirmed Type Acetaminophen [Tylenol] 650 mg PO Q6H PRN 07/31/13 12/20/17 History Cholecalciferol [Vitamin D3] 2,000 unit PO HS 07/31/13 12/20/17 History Ammonium Lactate Cream [Lac-Hydrin 1 applic TOPICAL BID 12/07/17 12/20/17 History 12% Cream] Atorvastatin [Lipitor] 40 mg PO HS 12/07/17 12/20/17 History Famotidine 20 mg PO DAILY 12/07/17 12/20/17 History Magnesium Oxide 400 mg PO HS 12/07/17 12/20/17 History Montelukast [Singulair] 10 mg PO HS 12/07/17 12/20/17 History ARIPiprazole [Abilify] 5 mg PO DAILY tab 12/15/17 12/20/17 Rx Diltiazem Cd [Cardizem CD] 360 mg PO DAILY cap.er.24h 12/15/17 12/20/17 Rx Furosemide [Lasix] 40 mg PO BID@0900,1600 tab 12/15/17 12/20/17 Rx Apixaban [Eliquis] 5 mg PO BID@0900,1600 12/20/17 12/20/17 History INSULIN LISPRO (HumaLOG) [humaLOG] See Protocol SQ ACHS 12/20/17 12/20/17 History Ipratropium-Albuterol Nebulize 3 ml INHALATION RT-Q4H PRN 12/20/17 12/20/17 History [Duoneb 0.5 mg-3 mg/3 ml Soln] Ipratropium-Albuterol Nebulize 3 ml INHALATION RT-QID@05,11,17,23 12/20/1712/20 History [Duoneb 0.5 mg-3 mg/3 ml Soln] Menthol-Zinc Oxide Oint 1 applic TOPICAL TID 12/20/17 12/20/17 History [Calmoseptine Oint] Metolazone [Zaroxolyn] 5 mg PO DAILY 12/20/17 12/20/17 History predniSONE See Taper PO DIRECTED 12/20/17 12/20/17 History Allergies Allergy/AdvReac Type Severity Reaction Status Date / Time salicylic acid Allergy Unknown Verified 12/20/17 19:40 erythromycin base AdvReac Rash/Hives Verified 12/20/17 19:40 [Erythromycin Base] Sulfa (Sulfonamide AdvReac Rash/Hives Verified 12/20/17 19:40 Antibiotics) Physical Exam Vitals: Vital Signs Temp Pulse Pulse Resp BP BP Pulse Ox 12/21/17 12:57 103 H 12/21/17 12:42 101 H 16 12/21/17 12:00 97.9 F 101 H 16 97/53 92 L 12/21/17 11:00 96 14 89/53 97 12/21/17 10:20 98 12/21/17 10:00 98 14 98/52 94 L 12/21/17 09:47 94 12/21/17 09:46 94 12/21/17 09:36 100 12/21/17 09:00 99 14 105/55 92 L 12/21/17 08:20 98 12/21/17 08:06 97 14 12/21/17 08:00 97.3 F L 98 14 96/65 94 L 12/21/17 07:23 93 1 L 96/59 96 12/21/17 07:00 90 14 100/58 96 12/21/17 06:30 92 34 H 117/68 91 L 12/21/17 06:05 88 24 128/60 92 L 12/21/17 05:30 88 24 142/63 91 L 12/21/17 04:43 87 27 H 108/57 93 L 12/21/17 03:50 95 28 H 123/60 94 L 12/21/17 03:00 84 21 108/69 92 L 12/21/17 02:00 87 22 112/53 93 L 12/21/17 01:00 95 20 104/56 94 L 12/21/17 00:38 93 28 H 124/56 94 L 12/20/17 23:12 80 29 H 133/53 94 L 12/20/17 22:01 83 22 126/58 96 12/20/17 21:00 82 12/20/17 20:45 82 28 H 139/67 95 12/20/17 20:31 85 12/20/17 20:06 81 12/20/17 20:00 76 12/20/17 19:50 77 30 H 132/68 98 12/20/17 19:43 75 12/20/17 19:31 98.0 F 101 H 26 H 148/65 98 Intake and Output 12/20/17 12/21/17 12/21/17 22:59 06:59 14:59 Intake Total 734.015 Output Total 350 181 Balance -350 553.015 Intake: IV 650 Calcium Gluconate 1,000 100 mg In Sodium Chloride 0.9 % 100 ml @ 100 mls/hr IVPB ONCE ONE Rx#: [id number] Piperacillin-Tazobactam 3 50 .375 gm In Dextrose/Water 1 50ml.bag @ 12.5 mls/hr IVPB Q12HR LOUANN Rx#: [id number] Sodium Chloride 0.9% 1, 500 000 ml @ 100 mls/hr IV . Q10H STA Rx#:[id number] Intake, IV Titration 84.015 Amount Midazolam HCl 100 mg In 7.238 Sodium Chloride 0.9% 80 ml @ 0.02 MG/KG/HR 2.31 mls/hr IV .Q24H LOUANN Rx#: [id number] Propofol 1,000 mg In 39.243 Empty Bag 1 bag @ Titrate IV .Q0M LOUANN Rx#: [id number] fentaNYL (PF) 2,500 mcg 37.534 In Sodium Chloride 0.9% 200 ml @ 1 MCG/KG/HR 11. 56 mls/hr IV .[id number] LOUANN Rx#:[id number] Output: Gastric Drainage 50 Urine 350 131 Other: Voiding Method Indwelling Catheter Weight 115.666 kg PHYSICAL EXAMINATION: GENERAL: Patient is intubated sided morbidly obese HEENT: Pupils are round and equally reacting to light. EOMI. No scleral icterus. No conjunctival pallor. Normocephalic, atraumatic. No pharyngeal erythema. No thyromegaly. CARDIOVASCULAR: S1 and S2 present. No murmurs, rubs, or gallops. PULMONARY: Chest is clear to auscultation, no wheezing or crackles. ABDOMEN: Soft, nontender, nondistended, normoactive bowel sounds. No palpable organomegaly. MUSCULOSKELETAL: No joint swelling or deformity. EXTREMITIES: No cyanosis, clubbing, or bilateral extensive 3+ pitting pedal edema with some chronic ulcerations of bullous lesions from peripheral edema NEUROLOGICAL: Patient is presently intubated and sedated SKIN: No rashes. Results CBC & Chem 7: 12/20/17 19:38 12/21/17 07:43 Labs: Abnormal Lab Results - Last 24 Hours (Table) 12/20/17 12/20/17 12/20/17 Range/Units 19:37 19:38 19:38 RBC 3.30 L (3.80-5.40) m/uL Hgb 9.6 L D (11.4-16.0) gm/dL Hct 30.1 L (34.0-46.0) % Neutrophils # 8.0 H (1.3-7.7) k/uL Lymphocytes # 0.5 L (1.0-4.8) k/uL ABG pH (7.35-7.45) ABG pCO2 (35-45) mmHg ABG pO2 (83-108) mmHg ABG HCO3 (21-25) mmol/L ABG Total CO2 (19-24) mmol/L ABG O2 Saturation (94-97) % Sodium (137-145) mmol/L Potassium (3.5-5.1) mmol/L Chloride (98-107) mmol/L Carbon Dioxide (22-30) mmol/L BUN (7-17) mg/dL Creatinine (0.52-1.04) mg/dL Glucose (74-99) mg/dL POC Glucose (mg/dL) 185 H (75-99) mg/dL Calcium (8.4-10.2) mg/dL Magnesium (1.6-2.3) mg/dL AST (14-36) U/L ALT (9-52) U/L Total Creatine Kinase 965 H (30-135) U/L CK-MB (CK-2) 20.1 H (0.0-2.4) ng/mL Troponin I 0.049 H* (0.000-0.034) ng/mL Total Protein (6.3-8.2) g/dL Albumin (3.5-5.0) g/dL Urine Protein (Negative) Urine Blood (Negative) Urine RBC (0-5) /hpf Hyaline Casts (0-2) /lpf Urine Mucus (None) /hpf 12/20/17 12/20/17 12/21/17 Range/Units 19:38 21:32 00:58 RBC (3.80-5.40) m/uL Hgb (11.4-16.0) gm/dL Hct (34.0-46.0) % Neutrophils # (1.3-7.7) k/uL Lymphocytes # (1.0-4.8) k/uL ABG pH (7.35-7.45) ABG pCO2 (35-45) mmHg ABG pO2 (83-108) mmHg ABG HCO3 (21-25) mmol/L ABG Total CO2 (19-24) mmol/L ABG O2 Saturation (94-97) % Sodium 127 L (137-145) mmol/L Potassium 6.8 H* (3.5-5.1) mmol/L Chloride 87 L (98-107) mmol/L Carbon Dioxide 32 H (22-30) mmol/L BUN 87 H (7-17) mg/dL Creatinine 2.55 H (0.52-1.04) mg/dL Glucose 167 H (74-99) mg/dL POC Glucose (mg/dL) 196 H 125 H (75-99) mg/dL Calcium 8.0 L (8.4-10.2) mg/dL Magnesium 2.6 H (1.6-2.3) mg/dL AST 183 H (14-36) U/L ALT 298 H (9-52) U/L Total Creatine Kinase (30-135) U/L CK-MB (CK-2) (0.0-2.4) ng/mL Troponin I (0.000-0.034) ng/mL Total Protein 5.4 L (6.3-8.2) g/dL Albumin 3.0 L (3.5-5.0) g/dL Urine Protein (Negative) Urine Blood (Negative) Urine RBC (0-5) /hpf Hyaline Casts (0-2) /lpf Urine Mucus (None) /hpf 12/21/17 12/21/17 12/21/17 Range/Units 01:24 05:13 07:38 RBC (3.80-5.40) m/uL Hgb (11.4-16.0) gm/dL Hct (34.0-46.0) % Neutrophils # (1.3-7.7) k/uL Lymphocytes # (1.0-4.8) k/uL ABG pH (7.35-7.45) ABG pCO2 61 H (35-45) mmHg ABG pO2 174 H (83-108) mmHg ABG HCO3 34 H (21-25) mmol/L ABG Total CO2 36 H (19-24) mmol/L ABG O2 Saturation 99.9 H (94-97) % Sodium 128 L (137-145) mmol/L Potassium 6.6 H* (3.5-5.1) mmol/L Chloride 87 L (98-107) mmol/L Carbon Dioxide 35 H (22-30) mmol/L BUN 87 H (7-17) mg/dL Creatinine 2.93 H (0.52-1.04) mg/dL Glucose 118 H (74-99) mg/dL POC Glucose (mg/dL) 158 H (75-99) mg/dL Calcium 7.9 L (8.4-10.2) mg/dL Magnesium (1.6-2.3) mg/dL AST 166 H (14-36) U/L ALT 294 H (9-52) U/L Total Creatine Kinase (30-135) U/L CK-MB (CK-2) (0.0-2.4) ng/mL Troponin I (0.000-0.034) ng/mL Total Protein 5.2 L (6.3-8.2) g/dL Albumin 2.8 L (3.5-5.0) g/dL Urine Protein (Negative) Urine Blood (Negative) Urine RBC (0-5) /hpf Hyaline Casts (0-2) /lpf Urine Mucus (None) /hpf 12/21/17 12/21/17 12/21/17 Range/Units 07:43 11:10 11:50 RBC (3.80-5.40) m/uL Hgb (11.4-16.0) gm/dL Hct (34.0-46.0) % Neutrophils # (1.3-7.7) k/uL Lymphocytes # (1.0-4.8) k/uL ABG pH 7.47 H (7.35-7.45) ABG pCO2 (35-45) mmHg ABG pO2 80 L (83-108) mmHg ABG HCO3 33 H (21-25) mmol/L ABG Total CO2 34 H (19-24) mmol/L ABG O2 Saturation 97.5 H (94-97) % Sodium 131 L (137-145) mmol/L Potassium 6.9 H* (3.5-5.1) mmol/L Chloride 88 L (98-107) mmol/L Carbon Dioxide 32 H (22-30) mmol/L BUN 91 H (7-17) mg/dL Creatinine 3.13 H (0.52-1.04) mg/dL Glucose 101 H (74-99) mg/dL POC Glucose (mg/dL) (75-99) mg/dL Calcium 8.2 L (8.4-10.2) mg/dL Magnesium (1.6-2.3) mg/dL AST 147 H (14-36) U/L ALT 274 H (9-52) U/L Total Creatine Kinase (30-135) U/L CK-MB (CK-2) (0.0-2.4) ng/mL Troponin I (0.000-0.034) ng/mL Total Protein 5.0 L (6.3-8.2) g/dL Albumin 2.6 L (3.5-5.0) g/dL Urine Protein Trace H (Negative) Urine Blood Small H (Negative) Urine RBC 6 H (0-5) /hpf Hyaline Casts 9 H (0-2) /lpf Urine Mucus Rare H (None) /hpf Microbiology - Last 24 Hours (Table) 12/20/17 19:38 Blood Culture Gram Stain - Preliminary Blood 12/21/17 07:20 Sputum Culture - Preliminary Sputum 12/20/17 19:38 Blood Culture - Final Blood Thrombosis Risk Factor Assmnt - Choose All That Apply Any of the Below Risk Factors Present?: Yes Each Factor Represents 1 point: Abnormal pulmonary function (COPD), Heart failure (<1month), Medical pt on bed rest, Obesity (BMI >25), Serious lung disease incl. pneumonia (< 1month), Swollen legs (current) Other Risk Factors: Yes Each Risk Factor Represents 2 Points: Patient confined to bed Each Risk Factor Represents 3 Points: Age 75 years or older, History of DVT/PE Other congenital or acquired thrombophilia - If yes, enter type in comment: No Thrombosis Risk Factor Assessment Total Risk Factor Score: 14 Thrombosis Risk Factor Assessment Level: High Risk Assessment and Plan Plan: Acute on chronic hypercapnic and hypoxic respiratory failure: Patient is presently intubated on assist-control ventilation further management as per family helper. Acute hypoxic respiratory failure secondary to pulmonary edema patient is on IV Lasix -Sepsis with gram-negative bacteremia source may be urinary tract infection pneumonia cannot be ruled out: Infectious disease is following the patient patient is on Zosyn did receive Levaquin which is presently discontinued -Congestive heart failure chronic diastolic dysfunction with acute exacerbation -Acute renal failure secondary to heart failure exacerbation and maybe lisinopril is contributing to that. Nephrology is following the patient, patient is on high-dose of Lasix. 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
[2017-12-21 13:37] VITALS: BMI 38.7
[2017-12-21 14:25] LABS: HCT 25.6 % (34.0-46.0); HGB 8.4 gm/dL (11.4-16.0); MCH 29.9 pg (25.0-35.0); MCHC 32.9 g/dL (31.0-37.0); MCV 90.8 fL (80.0-100.0); Mean Platelet Volume 7.2; Platelet Count 164 k/uL (150-450); RBC 2.82 m/uL (3.80-5.40); RDW 15.6 % (11.5-15.5)
[2017-12-21 14:56] LABS: Glucose,Whole Blood 120 mg/dL (75-99)
--- NOTE | 2017-12-21 15:12 | CONS ---
CONSULTATION CHIEF COMPLAINT: Shortness of breath. Yulissa is 77-year-old lady with history of diastolic heart failure, atrial fibrillation, hypertension, dyslipidemia, pneumonia, osteoarthritis and renal insufficiency who was actually discharged home recently, was short of breath at [facility], was on 5 L nasal cannula, still short of breath, brought in, initially tried on BiPAP and IV Lasix. Continued to be short of breath, intubated and is currently on vent. I have been consulted for the same. Her BNP is elevated, but is improved compared to at the time of discharge. She is in atrial fibrillation with controlled ventricular rate and is hemodynamically stable. Patient has elevated BUN and creatinine at 91 and 3.1. Her renal functions are worsened compared to last visit. Her potassium is elevated at 6.9 and Nephrology is on the case. PAST MEDICAL HISTORY: Significant for atrial fibrillation, COPD, insulin-requiring diabetes. MEDICATIONS: At home included Singulair, Zaroxolyn, DuoNeb, insulin, Lasix, Cardizem, Lipitor, Eliquis, Tylenol, and Abilify. ALLERGIC: To SALICYLIC ACID, ERYTHROMYCIN, SULFA. FAMILY HISTORY SOCIAL HISTORY, REVIEW OF SYSTEMS: I am unable to obtain from the patient. PHYSICAL EXAMINATION: On exam, heart rate is 103 beats per minute, blood pressure is 96/50, respiratory rate is 22. Chest exam reveals diminished air entry at the bases with occasional crackles. Heart exam reveals first and second heart sounds, irregular rhythm. No murmur. Abdomen is soft. Exam of extremities revealed bilateral 1+ edema and erosion of the skin. LABS: Show a hemoglobin of 9.6, BNP is elevated at 4430, potassium is elevated at 6.9, BUN is 91, creatinine is 3.1. Troponin is mildly elevated secondary to renal failure. ASSESSMENT: 1. Respiratory failure. 2. Acute exacerbation of chronic diastolic heart failure. 3. Chronic renal failure. 4. Chronic atrial fibrillation. PLAN: Continue with the current supportive measures. We will follow the patient in ICU. MMODL / IJN: [id number] /
[2017-12-21] MEDS: FUROSEMIDE 250 MG in SODIUM CHLORIDE 0.9% 225 ML IVP SCH (15:15)
[2017-12-21 16:22] LABS: Band Neutrophils % 43 %; Lymphocytes # (M) 0.56 k/uL (1.0-4.8); Metamyelocytes % 7 %; Monocytes # (M) 0.13 k/uL (0-1.0); Myelocytes # (M) 0.34 k/uL (0); Myelocytes % 8 %; Neutrophils % (M) 27 %; Nucleated Red Blood Cells 3 /100 WBC (0-0); Total Cells Counted 200; WBC 4.3 k/uL (3.8-10.6)
[2017-12-21 16:23] LABS: Large Platelets Present; Polychromasia Present; Toxic Vacuolation Present
[2017-12-21 16:41] LABS: Glucose,Whole Blood 171 mg/dL (75-99)
[2017-12-21] MEDS: NOREPINEPHRINE 4 MG in SODIUM CHLORIDE 0.9% 250 ML IV SCH (18:10)
[2017-12-21 19:14] LABS: Glucose,Whole Blood 174 mg/dL (75-99)
[2017-12-21] MEDS: INSULIN ASPART 100 UNIT/ML 1 ML 10 ML VIAL SQ SCH (19:16)
[2017-12-21] MEDS: BUDESONIDE 0.5 MG/2 ML NEBU INHALATION SCH (19:16)
[2017-12-21] MEDS ORDERED: APIXABAN 5 MG TAB PO SCH (21:00)
[2017-12-21] MEDS ORDERED: FUROSEMIDE 10 MG/ML 10 ML VIAL IV SCH (21:00)
[2017-12-21] MEDS: APIXABAN 2.5 MG TABLET PO SCH (21:11)
--- NOTE | 2017-12-21 22:00 | CONS ---
CONSULTATION REASON FOR CONSULT: Renal failure, hyperkalemia. HISTORY OF PRESENT ILLNESS: The patient is a 77-year-old female who was recently discharged from the hospital on 12/15/2017. Patient was brought back to the hospital with a complaint of not feeling well. She was short of breath. Chest x-ray showed bilateral infiltrates. Patient's blood culture is growing gram-negative organisms. She is noted to have a urinary tract infection. Serum potassium was 6.9 at the time of admission. Patient's serum creatinine was 3.13. At the time of discharge, her creatinine was about 1.3 to 1.4 mg/dL. Patient's urine output has been about 20 mL/hour. She has received IV cocktails for the hyperkalemia. There is no evidence of active bleeding noted at this time. Hemoglobin was 8.4. Previously her hemoglobin was 11.1 on 12/15/2017. Patient was intubated in the ER. She is currently on FiO2 of 50%. PAST MEDICAL HISTORY: Significant for: 1. Atrial fibrillation. 2. COPD. 3. History of CHF. 4. Fibromyalgia. 5. Gastroesophageal reflux disease. 6. Hyperlipidemia. 7. Hypertension. 8. Recent pneumonia. 9. Possible PE. 10.Possible TIA recently. 11.Bilateral lower extremity cellulitis. 12.History of constipation. PAST SURGICAL HISTORY: 1. Appendectomy. 2. Cholecystectomy. 3. Hysterectomy. 4. Tonsillectomy. 5. Right knee arthroscopy. 6. Thoracentesis. 7. Cataract surgery. 8. Colonoscopies. SOCIAL HISTORY: Patient is a former smoker. No history of drug abuse or alcohol abuse. MEDICATIONS: Medications prior to admission included: 1. Vitamin D3. 2. Tylenol. 3. Lipitor. 4. Pepcid. 5. Singulair. 6. Abilify. 7. Cardizem. 8. Lasix. 9. Eliquis. 10.Zaroxolyn. 11.Prednisone. 12.Insulin. ALLERGIES: ALLERGIES include SALICYLATES and ERYTHROMYCIN, SULFA, both of which cause rash and hives. REVIEW OF SYSTEMS: As per HPI. Other systems negative. PHYSICAL EXAMINATION: Patient is currently sedated. She is on the vent. EXAMINATION OF THE HEART: S1, S2. EXAMINATION OF LUNGS: Bilateral breath sounds are heard. ABDOMEN: Soft, non-tender. Examination of lower extremities shows erythema bilaterally with 2+ edema noted as well. FULLERETTE exam cannot be performed. LABS: 1. Sodium of 131, potassium 6.9, serum creatinine 3.13, CO2 32, hemoglobin 8.4 g/dL. UA shows trace protein, WBCs 2, hyaline casts 9. ASSESSMENT: 1. Acute kidney injury, acute tubular necrosis, with borderline urine output secondary to sepsis. No nephrotoxic agents on board. 2. Hyperkalemia associated with acute kidney injury. Rule out underlying GI bleed. Hemoglobin has dropped since her discharge on 12/15 from 11 g/dL. However, there is no active bleeding noted. I will check a stool for occult blood. One-time order for Lasix was given. Patient has not diuresed much. Her repeat potassium remains elevated at 6.6. I will start her on a Lasix drip. 3. Gram-negative bacteremia, source unclear. UA does not show urinary tract infection. Consider a CT of the abdomen. 4. History of congestive heart failure. I do not see a recent echocardiogram. 5. Atrial fibrillation with heart rate being 101 to 103 beats per minute. PLAN: Start Lasix drip. Continue antibiotics. Continue with the IV fluids as well for now. Patient is oxygenating well. We will repeat another chest x-ray in a.m. Hopefully, once the urine output improves, serum potassium will improve as well. We do need to rule out underlying GI bleed. Check stool for occult blood. Thank you for this consultation. We will continue to follow the patient with you during her hospitalization. MMODL / IJN: [id number] /
[2017-12-22 00:06] LABS: Glucose,Whole Blood 181 mg/dL (75-99)
[2017-12-22] MEDS: INSULIN ASPART 100 UNIT/ML 1 ML 10 ML VIAL SQ SCH ×4 (00:56→18:50)
[2017-12-22] MEDS: PROPOFOL 1,000 MG in EMPTY BAG 1 BAG IV SCH ×3 (04:31→17:09)
[2017-12-22] MEDS: NOREPINEPHRINE 4 MG in SODIUM CHLORIDE 0.9% 250 ML IV SCH ×3 (05:04→21:24)
[2017-12-22 05:07] LABS: ABG Base Excess 7.5 mmol/L; ABG HCO3 32 mmol/L (21-25); ABG Oxygen Saturation 98.2 % (94-97); ABG PCO2 46 mmHg (35-45); ABG PH 7.44 (7.35-7.45); ABG PO2 101 mmHg (83-108); ABG TCO2 33 mmol/L (19-24)
[2017-12-22 05:15] LABS: Hemoglobin A1C 7.1 % (4.0-6.0)
[2017-12-22 05:15] LABS: Basophils % (A) 0 %; Eosinophils % (A) 0 %; HCT 23.8 % (34.0-46.0); HGB 7.5 gm/dL (11.4-16.0); Lymphocytes # (A) 0.3 k/uL (1.0-4.8); Lymphocytes % (A) 4 %; MCH 28.4 pg (25.0-35.0); MCHC 31.6 g/dL (31.0-37.0); MCV 89.8 fL (80.0-100.0); Mean Platelet Volume 7.1; Monocytes # (A) 0.3 k/uL (0-1.0); Monocytes % (A) 3 %; Neutrophils # (A) 7.4 k/uL (1.3-7.7); Neutrophils % (A) 91 %; Platelet Count 212 k/uL (150-450); RBC 2.65 m/uL (3.80-5.40); RDW 15.5 % (11.5-15.5); WBC 8.1 k/uL (3.8-10.6)
[2017-12-22 05:21] LABS: Calcium 7.7 mg/dL (8.4-10.2); Magnesium 2.7 mg/dL (1.6-2.3); Phosphorus 6.1 mg/dL (2.5-4.5); Potassium 5.8 mmol/L (3.5-5.1)
[2017-12-22] MEDS ORDERED: DEXTROSE 50%-WATER 50 ML SYRINGE IVP STA (05:43)
[2017-12-22] MEDS ORDERED: INSULIN REGULAR 100 UNIT/ML VIAL IV ONE (05:44)
[2017-12-22 06:20] LABS: Glucose,Whole Blood 292 mg/dL (75-99)
[2017-12-22] MEDS: IPRATROPIUM-ALBUTEROL 3 ML NEB INHALATION SCH ×4 (06:54→19:32)
[2017-12-22] MEDS: BUDESONIDE 0.5 MG/2 ML NEBU INHALATION SCH ×2 (06:54→19:32)
--- NOTE | 2017-12-22 07:01 | CONS ---
CONSULTATION DATE OF SERVICE: 12/21/2017 REASON FOR CONSULTATION: Gram-negative bacteremia. HISTORY OF PRESENT ILLNESS: The patient is a 77-year-old female who was brought into the ER at [facility] yesterday evening for chief complaints of difficulty breathing and hypoxemia. Apparently the patient was just discharged from this facility and was treated for pneumonia. While at halfway the patient became increasingly short of breath and was hypoxemic. The patient has been tried on BiPAP without any significant improvement. The patient was apparently intubated in the ER. The patient who did not have any high-grade fever on presentation subsequently did spike a fever of 100.1. Her UA has been negative. White count was not significantly elevated. Chest x-ray reported for possible right lower lobe pneumonia. She did have blood cultures obtained coming positive for gram negative bacilli that prompted this Infectious Disease consultation. Most of the information has been obtained from thorough review of the chart and talking to nursing staff. The patient is currently on the vent. However, there was nursing staff. No significant purulence. The patient has been through the ET tube. History remains to be limited on the basis of information reported above. REVIEW OF SYSTEMS: Could not be reliably obtained though the positive points has been mentioned in HPI. PAST MEDICAL HISTORY: Significant for atrial fibrillation heart failure, COPD, fibromyalgia, hypertension, hyperlipidemia, osteoarthritis, pneumonia, chronic renal insufficiency, and arrhythmia. PAST SURGICAL HISTORY: Appendectomy, bladder surgery, cholecystectomy, hysterectomy, tonsillectomy, left thoracocentesis, the bilateral mammary glands removed, right knee arthroscopy, bladder sling. SOCIAL HISTORY: Remote history of smoking. No drinking or drug use. FAMILY HISTORY: Father history of congestive heart failure and renal insufficiency. Mother history of congestive heart failure and hypertension in her 80s. ALLERGIES: Allergies to, SALICYLIC ACID, ERYTHROMYCIN BASED and SULFA ANTIBIOTIC. MEDICATIONS: Medications currently include the patient is on propofol, Zosyn, norepinephrine, Narcan, NovoLog, Lasix, Pulmicort, Eliquis, and DuoNeb. PHYSICAL EXAMINATION: On examination, blood pressure is 113/53 with a pulse of 113, temperature of 98, T-max 100.1. She is 98% on 50% FiO2. General description is an elderly female lying in bed in no distress. No tachypnea or accessory muscle of respiration use. HEENT examination shows pallor, no scleral icterus. The patient is orally intubated, oral cavity. NECK: Trachea central. No thyromegaly. LUNGS: Unlabored breathing with decreased breath sounds in the bases. No wheeze or crackle. HEART: S1,S2. Regular rate and rhythm. ABDOMEN: Soft, no tenderness. No guarding or rigidity. EXTREMITIES: With 1+ edema of feet with small blister on the right leg with no definite cellulitis. SKIN EXAMINATION: No rash or mass palpable. NEUROLOGIC: The patient is currently sedated on the vent. Neuro exam could not be completed. LABS: Hemoglobin 8.4, white count 4.3, BUN of 91, creatinine 3.13. Potassium 6.6, repeat is 5.5. UA has been negative. Chest report with right lower lobe pneumonia. DIAGNOSTIC IMPRESSION AND PLAN: 1. Patient admitted to the hospital with acute respiratory failure which is likely multifactorial patient failing conservative therapy, is currently intubated on the vent with evidence of right lower lobe pneumonia now with evidence of gram-negative bacteremia, source likely pneumonia as the patient had no other clinical focus of this bacteremia. Her abdomen was soft on clinical examination and urine has been negative. No evidence of any cellulitis. 2. Patient who did have chronic renal insufficiency and risk of nephrotoxicity. 3. Patient of advanced age with with multiple medical problems. PLAN: 1. We will try to obtain sputum for Gram stain culture and sensitivity. 2. Zosyn 3.375 grams q.12 for creatinine clearance. 3. We will follow up on clinical condition as well as cultures to further adjust medication if needed. Thank you for this consultation. Will follow this patient along with you. MMODL / IJN: [id number] /
--- NOTE | 2017-12-22 08:02 | XR ---
EXAMINATION TYPE: XR chest 1V DATE OF EXAM: 12/22/2017 COMPARISON: 12/21/2017 HISTORY: Ventilatory dependent respiratory failure. TECHNIQUE: Single frontal view of the chest is obtained. FINDINGS: Endotracheal tube slightly cephalad in comparison to the prior likely related the patient' s head positioning. Overall this is appropriately placed. Enteric tube courses below the distal field -of-view with its fenestrated portion below the gastroesophageal junction. There is a persistent mottled opacity with near complete opacification of the right hemithorax, simil ar to the prior. Retrocardiac opacity and blunting of the left costophrenic angle are also similar to the prior. Cardia mediastinal silhouette is obscured. IMPRESSION: New complete opacification of the right hemithorax and retrocardiac airspace possibly re lating to a loculated pleural effusion although underlying pneumonia is also a consideration. Left sm all pleural effusion and associated airspace disease are stable.
[2017-12-22] MEDS: PANTOPRAZOLE 40 MG/10 ML VIAL IVP SCH ×2 (08:50→20:14)
[2017-12-22] MEDS: APIXABAN 2.5 MG TABLET PO SCH ×2 (08:51→20:13)
[2017-12-22] MEDS: PIPERACILLIN-TAZOBACTAM 3.375 GM in DEXTROSE/WATER 1 50ML.BAG IVPB SCH ×2 (08:51→20:14)
[2017-12-22] MEDS: CHLORHEXIDINE GLUCONATE 15 ML CUP MUCOUS MEM SCH ×2 (08:51→20:14)
[2017-12-22] MEDS: METOPROLOL TARTRATE 25 MG TAB PO SCH ×2 (10:18→20:13)
--- NOTE | 2017-12-22 10:58 | PN ---
PROGRESS NOTE Yulissa is 77-year-old lady who is admitted to hospital with diastolic heart failure, atrial fibrillation, hypertension. The patient when she first arrived was in atrial fibrillation with controlled ventricular rate, was intubated, admitted to ICU, has been hypotensive and requiring pressors. Currently her heart rate is 120 beats per minute, blood pressure 107/72, respiratory rate is 20. Chest exam reveals diminished air entry at the bases. Heart exam reveals first and second heart sounds, irregular rhythm. Abdomen is soft. Examination of the extremities reveals 1+ edema. Peripheral pulses are felt. The chest x-ray shows opacification of the right hemithorax probably due to loculated pleural effusion. Labs show that the hemoglobin is 7.5. Potassium is 5.8. BUN is 98, creatinine is 3.4. ASSESSMENT: 1. Atrial fibrillation with poorly controlled ventricular rate. 2. . 3. Chronic diastolic heart failure. 4. Right-sided pleural effusion. PLAN: Will continue the patient on Lasix drip. Start her on Lopressor 25 b.i.d. She is on Eliquis, which she is going to continue. Patient may need thoracentesis. We will talk with the wet process technician about this. MMODL / IJN: [id number] /
[2017-12-22 11:59] LABS: Glucose,Whole Blood 177 mg/dL (75-99)
--- NOTE | 2017-12-22 12:08 | P.PN ---
<Yadi Melton E - Last Filed: 12/22/17 11:57> Subjective Progress Note Date: 12/22/17 History of present illness: This is a 77-year-old female who presented emergency department with hypoxia and shortness of breath. The patient was at [facility] and was placed on 5 L nasal cannula and was still hypoxic. The patient was subsequently brought to the emergency department. EMS had placed the patient on CPAP. He was recently admitted on 12/07/2017 and discharged on 12/15/2017 with similar complaints. At that time the patient was found to have acute exacerbation of congestive heart failure. She was diuresed and had thoracentesis and was sent to [facility]. While in the emergency department physician was placed on BiPAP and given Lasix. She had poor response to the Lasix. She became obtunded and was subsequently intubated. The patient is seen and examined in the emergency department today. The patient has been hemodynamically stable she was found to have gram-negative bacteremia. She is currently intubated. She has been afebrile overnight. It is noted that the patient has a dilated right pupil and 2 mm left pupil. The right pupil is less reactive. The patient was sent for CT of the brain this morning which showed no acute process it did show remote ischemic changes. This is discussed with the family at length. Patient is unable to go for MRI at this time due to her respiratory status. We will repeat CT of the brain in 48 hours. Interval history: 12/22/2017patient is being seen examined and evaluated today in the intensive care unit. She remains on mechanical ventilation with propofol for sedation. She currently is on assist control mode with respiratory rate 14, tidal volume of 500, FiO2 50% and a PEEP of 5. ABGs from this morning were reviewed and she had a pH of 7.44 pCO2 of 46 pO2 of 101 and HCO3 of 32. She currently is on Levophed at 8 mics and propofol at 25 mics. She is synchronous with the ventilator. She has had good urine output. Chest x-ray from this morning was reviewed and does show complete opacification of right hemothorax with possible loculated effusion, underlying pneumonia cannot be excluded. She was initially on a Lasix drip however when her blood pressures became low nephrology did stop that for the time being and is considering putting her on IV push Lasix. The patient did undergo a sedation holiday this morning and was able to follow commands. Her pupils are both equal round and reactive to light and accommodation. Feedings have been started per dietary. Family is updated at bedside on plan of care. Objective - Vital Signs Vital signs: Vital Signs Temp 97.8 F 12/22/17 08:15 Pulse 124 H 12/22/17 11:17 Resp 21 12/22/17 09:55 BP 111/74 12/22/17 09:55 Pulse Ox 98 12/22/17 09:55 Intake & Output 12/21/17 12/22/17 12/22/17 18:59 06:59 18:59 Intake Total 4275.489 7302.097 614.009 Output Total 418 520 345 Balance 077.911 8863.097 269.009 Weight 115.666 kg 128.5 kg Intake: IV 1250 1350 220 .9 NS 220 Calcium Gluconate 1,000 100 mg In Sodium Chloride 0.9 % 100 ml @ 100 mls/hr IVPB ONCE ONE Rx#: [id number] Piperacillin-Tazobactam 3 50 50 .375 gm In Dextrose/Water 1 50ml.bag @ 12.5 mls/hr IVPB Q12HR [facility] Rx#: [id number] Sodium Chloride 0.9% 1, 1100 1300 000 ml @ 100 mls/hr IV . Q10H [facility] Rx#:[id number] Intake, IV Titration 165.840 359.097 274.009 Amount Furosemide 250 mg In 25.833 Sodium Chloride 0.9% 225 ml @ 10 MG/HR 10 mls/hr IVP .Q24H [facility] Rx#: [id number] Midazolam HCl 100 mg In 7.238 Sodium Chloride 0.9% 80 ml @ 0.02 MG/KG/HR 2.31 mls/hr IV .Q24H [facility] Rx#: [id number] Norepinephrine 4 mg In 3.125 246.875 185.750 Sodium Chloride 0.9% 250 ml @ Titrate IV .Q0M [facility] Rx#:[id number] Propofol 1,000 mg In 92.110 112.222 88.259 Empty Bag 1 bag @ Titrate IV .Q0M [facility] Rx#: [id number] fentaNYL (PF) 2,500 mcg 37.534 In Sodium Chloride 0.9% 200 ml @ 1 MCG/KG/HR 11. 56 mls/hr IV .[id number] [facility] Rx#:[id number] Tube Feeding 240 120 Other 90 Output: Gastric Drainage 125 Urine 293 520 345 Other: Voiding Method Indwelling Catheter Indwelling Catheter Indwelling Catheter - Exam Gen.: Patient is sedated and intubated Cardiovascular: Regular rate and rhythm, S1/S2 Lungs: Coarse breath sounds bilaterally, diminished more so on the right. Abdomen: Soft nontender nondistended positive bowel sounds Extremities: 1-2+ edema Neuro: On sedation, pupils now equal round reactive to light and accommodation - Labs CBC & Chem 7: 12/22/17 04:55 12/22/17 10:34 Labs: Abnormal Lab Results - Last 24 Hours (Table) 12/21/17 12/21/17 12/21/17 Range/Units 13:02 13:02 14:53 RBC 2.82 L (3.80-5.40) m/uL Hgb 8.4 L (11.4-16.0) gm/dL Hct 25.6 L (34.0-46.0) % RDW 15.6 H (11.5-15.5) % Lymphocytes # (1.0-4.8) k/uL Lymphocytes # (Manual) 0.56 L (1.0-4.8) k/uL Metamyelocytes # (Man) 0.30 H (0) k/uL Myelocytes # (Manual) 0.34 H (0) k/uL Nucleated RBCs 3 H (0-0) /100 WBC ABG pCO2 (35-45) mmHg ABG HCO3 (21-25) mmol/L ABG Total CO2 (19-24) mmol/L ABG O2 Saturation (94-97) % Sodium (137-145) mmol/L Potassium 6.6 H* (3.5-5.1) mmol/L Chloride (98-107) mmol/L BUN (7-17) mg/dL Creatinine (0.52-1.04) mg/dL Glucose (74-99) mg/dL POC Glucose (mg/dL) 120 H (75-99) mg/dL Hemoglobin A1c (4.0-6.0) % Calcium (8.4-10.2) mg/dL Phosphorus (2.5-4.5) mg/dL Magnesium (1.6-2.3) mg/dL 12/21/17 12/21/17 12/21/17 Range/Units 16:39 18:50 18:50 RBC (3.80-5.40) m/uL Hgb (11.4-16.0) gm/dL Hct (34.0-46.0) % RDW (11.5-15.5) % Lymphocytes # (1.0-4.8) k/uL Lymphocytes # (Manual) (1.0-4.8) k/uL Metamyelocytes # (Man) (0) k/uL Myelocytes # (Manual) (0) k/uL Nucleated RBCs (0-0) /100 WBC ABG pCO2 (35-45) mmHg ABG HCO3 (21-25) mmol/L ABG Total CO2 (19-24) mmol/L ABG O2 Saturation (94-97) % Sodium (137-145) mmol/L Potassium 5.5 H (3.5-5.1) mmol/L Chloride (98-107) mmol/L BUN (7-17) mg/dL Creatinine (0.52-1.04) mg/dL Glucose (74-99) mg/dL POC Glucose (mg/dL) 171 H (75-99) mg/dL Hemoglobin A1c 7.1 H (4.0-6.0) % Calcium (8.4-10.2) mg/dL Phosphorus (2.5-4.5) mg/dL Magnesium (1.6-2.3) mg/dL 12/21/17 12/22/17 12/22/17 Range/Units 19:13 00:05 04:55 RBC (3.80-5.40) m/uL Hgb (11.4-16.0) gm/dL Hct (34.0-46.0) % RDW (11.5-15.5) % Lymphocytes # (1.0-4.8) k/uL Lymphocytes # (Manual) (1.0-4.8) k/uL Metamyelocytes # (Man) (0) k/uL Myelocytes # (Manual) (0) k/uL Nucleated RBCs (0-0) /100 WBC ABG pCO2 (35-45) mmHg ABG HCO3 (21-25) mmol/L ABG Total CO2 (19-24) mmol/L ABG O2 Saturation (94-97) % Sodium 128 L (137-145) mmol/L Potassium 5.8 H (3.5-5.1) mmol/L Chloride 90 L (98-107) mmol/L BUN 98 H (7-17) mg/dL Creatinine 3.44 H (0.52-1.04) mg/dL Glucose 159 H (74-99) mg/dL POC Glucose (mg/dL) 174 H 181 H (75-99) mg/dL Hemoglobin A1c (4.0-6.0) % Calcium 7.7 L (8.4-10.2) mg/dL Phosphorus 6.1 H (2.5-4.5) mg/dL Magnesium 2.7 H (1.6-2.3) mg/dL 12/22/17 12/22/17 12/22/17 Range/Units 04:55 04:59 06:19 RBC 2.65 L (3.80-5.40) m/uL Hgb 7.5 L (11.4-16.0) gm/dL Hct 23.8 L (34.0-46.0) % RDW (11.5-15.5) % Lymphocytes # 0.3 L (1.0-4.8) k/uL Lymphocytes # (Manual) (1.0-4.8) k/uL Metamyelocytes # (Man) (0) k/uL Myelocytes # (Manual) (0) k/uL Nucleated RBCs (0-0) /100 WBC ABG pCO2 46 H (35-45) mmHg ABG HCO3 32 H (21-25) mmol/L ABG Total CO2 33 H (19-24) mmol/L ABG O2 Saturation 98.2 H (94-97) % Sodium (137-145) mmol/L Potassium (3.5-5.1) mmol/L Chloride (98-107) mmol/L BUN (7-17) mg/dL Creatinine (0.52-1.04) mg/dL Glucose (74-99) mg/dL POC Glucose (mg/dL) 292 H (75-99) mg/dL Hemoglobin A1c (4.0-6.0) % Calcium (8.4-10.2) mg/dL Phosphorus (2.5-4.5) mg/dL Magnesium (1.6-2.3) mg/dL 12/22/17 Range/Units 10:34 RBC (3.80-5.40) m/uL Hgb (11.4-16.0) gm/dL Hct (34.0-46.0) % RDW (11.5-15.5) % Lymphocytes # (1.0-4.8) k/uL Lymphocytes # (Manual) (1.0-4.8) k/uL Metamyelocytes # (Man) (0) k/uL Myelocytes # (Manual) (0) k/uL Nucleated RBCs (0-0) /100 WBC ABG pCO2 (35-45) mmHg ABG HCO3 (21-25) mmol/L ABG Total CO2 (19-24) mmol/L ABG O2 Saturation (94-97) % Sodium (137-145) mmol/L Potassium 5.4 H (3.5-5.1) mmol/L Chloride (98-107) mmol/L BUN (7-17) mg/dL Creatinine (0.52-1.04) mg/dL Glucose (74-99) mg/dL POC Glucose (mg/dL) (75-99) mg/dL Hemoglobin A1c (4.0-6.0) % Calcium (8.4-10.2) mg/dL Phosphorus (2.5-4.5) mg/dL Magnesium (1.6-2.3) mg/dL Microbiology - Last 24 Hours (Table) 12/20/17 19:38 Blood Culture Gram Stain - Preliminary Blood Blood Culture - Preliminary Gram Neg Bacilli 12/21/17 07:20 Gram Stain - Preliminary Sputum Sputum Culture - Preliminary 12/20/17 19:38 Blood Culture - Final Blood Assessment and Plan Assessment: Assessment Acute on chronic hypoxic and hypercapnic respiratory failure Bilateral infiltrates R > L concerning for pulmonary edema Small bilateral pleural effusions Gram negative bacteremia Acute exacerbation of CHF NSTEMI Hyponatremia Hyperkalemia 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 Diuresis, Lasix per nephrology Blevins catheter with strict I/O ABX: Levaquin, Zosyn, consult ID Cardiology recommendations ABGs reviewed CT brain results discussed with family, will repeat in 48 hours Propofol drip for sedation Levophed for hypotension Nephrology recommendations Eliquis for DVT prophylaxis Protonix for GI prophylaxis Pulmicort, Duonebs Blood, urine, sputum cultures Serial CXR Tube feeds Code status discussed with family, they agree with no CPR, no defibrillation or intubation temporarily okay. I, the signing physician performed an examination of the patient, discussed and directed their management with the nurse practitioner. I have reviewed the nurse practitioner's note and agree with the documented findings, orders and plan of care. <Antonia Jalloh A - Last Filed: 12/22/17 15:41> Objective - Vital Signs Vital signs: Vital Signs Temp 97.8 F 12/22/17 08:15 Pulse 108 H 12/22/17 15:15 Resp 21 12/22/17 09:55 BP 111/74 12/22/17 09:55 Pulse Ox 98 12/22/17 09:55 Intake & Output 12/21/17 12/22/17 12/22/17 18:59 06:59 18:59 Intake Total 3497.427 5374.097 902.259 Output Total 418 520 605 Balance 966.731 7601.097 297.259 Weight 115.666 kg 128.5 kg Intake: IV 1250 1350 260 .9 NS 260 Calcium Gluconate 1,000 100 mg In Sodium Chloride 0.9 % 100 ml @ 100 mls/hr IVPB ONCE ONE Rx#: [id number] Piperacillin-Tazobactam 3 50 50 .375 gm In Dextrose/Water 1 50ml.bag @ 12.5 mls/hr IVPB Q12HR [facility] Rx#: [id number] Sodium Chloride 0.9% 1, 1100 1300 000 ml @ 100 mls/hr IV . Q10H [facility] Rx#:[id number] Intake, IV Titration 165.840 359.097 338.259 Amount Furosemide 250 mg In 25.833 Sodium Chloride 0.9% 225 ml @ 10 MG/HR 10 mls/hr IVP .Q24H [facility] Rx#: [id number] Midazolam HCl 100 mg In 7.238 Sodium Chloride 0.9% 80 ml @ 0.02 MG/KG/HR 2.31 mls/hr IV .Q24H [facility] Rx#: [id number] Norepinephrine 4 mg In 3.125 246.875 250.000 Sodium Chloride 0.9% 250 ml @ Titrate IV .Q0M [facility] Rx#:[id number] Propofol 1,000 mg In 92.110 112.222 88.259 Empty Bag 1 bag @ Titrate IV .Q0M [facility] Rx#: [id number] fentaNYL (PF) 2,500 mcg 37.534 In Sodium Chloride 0.9% 200 ml @ 1 MCG/KG/HR 11. 56 mls/hr IV .[id number] [facility] Rx#:[id number] Tube Feeding 240 304 Other 90 Output: Gastric Drainage 125 Urine 293 520 605 Other: Voiding Method Indwelling Catheter Indwelling Catheter Indwelling Catheter - Labs CBC & Chem 7: 12/22/17 04:55 12/22/17 10:34 Labs: Abnormal Lab Results - Last 24 Hours (Table) 12/21/17 12/21/17 12/21/17 Range/Units 13:02 16:39 18:50 RBC (3.80-5.40) m/uL Hgb (11.4-16.0) gm/dL Hct (34.0-46.0) % Lymphocytes # (1.0-4.8) k/uL Lymphocytes # (Manual) 0.56 L (1.0-4.8) k/uL Metamyelocytes # (Man) 0.30 H (0) k/uL Myelocytes # (Manual) 0.34 H (0) k/uL Nucleated RBCs 3 H (0-0) /100 WBC ABG pCO2 (35-45) mmHg ABG HCO3 (21-25) mmol/L ABG Total CO2 (19-24) mmol/L ABG O2 Saturation (94-97) % Sodium (137-145) mmol/L Potassium 5.5 H (3.5-5.1) mmol/L Chloride (98-107) mmol/L BUN (7-17) mg/dL Creatinine (0.52-1.04) mg/dL Glucose (74-99) mg/dL POC Glucose (mg/dL) 171 H (75-99) mg/dL Hemoglobin A1c (4.0-6.0) % Calcium (8.4-10.2) mg/dL Phosphorus (2.5-4.5) mg/dL Magnesium (1.6-2.3) mg/dL 12/21/17 12/21/17 12/22/17 Range/Units 18:50 19:13 00:05 RBC (3.80-5.40) m/uL Hgb (11.4-16.0) gm/dL Hct (34.0-46.0) % Lymphocytes # (1.0-4.8) k/uL Lymphocytes # (Manual) (1.0-4.8) k/uL Metamyelocytes # (Man) (0) k/uL Myelocytes # (Manual) (0) k/uL Nucleated RBCs (0-0) /100 WBC ABG pCO2 (35-45) mmHg ABG HCO3 (21-25) mmol/L ABG Total CO2 (19-24) mmol/L ABG O2 Saturation (94-97) % Sodium (137-145) mmol/L Potassium (3.5-5.1) mmol/L Chloride (98-107) mmol/L BUN (7-17) mg/dL Creatinine (0.52-1.04) mg/dL Glucose (74-99) mg/dL POC Glucose (mg/dL) 174 H 181 H (75-99) mg/dL Hemoglobin A1c 7.1 H (4.0-6.0) % Calcium (8.4-10.2) mg/dL Phosphorus (2.5-4.5) mg/dL Magnesium (1.6-2.3) mg/dL 12/22/17 12/22/17 12/22/17 Range/Units 04:55 04:55 04:59 RBC 2.65 L (3.80-5.40) m/uL Hgb 7.5 L (11.4-16.0) gm/dL Hct 23.8 L (34.0-46.0) % Lymphocytes # 0.3 L (1.0-4.8) k/uL Lymphocytes # (Manual) (1.0-4.8) k/uL Metamyelocytes # (Man) (0) k/uL Myelocytes # (Manual) (0) k/uL Nucleated RBCs (0-0) /100 WBC ABG pCO2 46 H (35-45) mmHg ABG HCO3 32 H (21-25) mmol/L ABG Total CO2 33 H (19-24) mmol/L ABG O2 Saturation 98.2 H (94-97) % Sodium 128 L (137-145) mmol/L Potassium 5.8 H (3.5-5.1) mmol/L Chloride 90 L (98-107) mmol/L BUN 98 H (7-17) mg/dL Creatinine 3.44 H (0.52-1.04) mg/dL Glucose 159 H (74-99) mg/dL POC Glucose (mg/dL) (75-99) mg/dL Hemoglobin A1c (4.0-6.0) % Calcium 7.7 L (8.4-10.2) mg/dL Phosphorus 6.1 H (2.5-4.5) mg/dL Magnesium 2.7 H (1.6-2.3) mg/dL 12/22/17 12/22/17 12/22/17 Range/Units 06:19 10:34 11:56 RBC (3.80-5.40) m/uL Hgb (11.4-16.0) gm/dL Hct (34.0-46.0) % Lymphocytes # (1.0-4.8) k/uL Lymphocytes # (Manual) (1.0-4.8) k/uL Metamyelocytes # (Man) (0) k/uL Myelocytes # (Manual) (0) k/uL Nucleated RBCs (0-0) /100 WBC ABG pCO2 (35-45) mmHg ABG HCO3 (21-25) mmol/L ABG Total CO2 (19-24) mmol/L ABG O2 Saturation (94-97) % Sodium (137-145) mmol/L Potassium 5.4 H (3.5-5.1) mmol/L Chloride (98-107) mmol/L BUN (7-17) mg/dL Creatinine (0.52-1.04) mg/dL Glucose (74-99) mg/dL POC Glucose (mg/dL) 292 H 177 H (75-99) mg/dL Hemoglobin A1c (4.0-6.0) % Calcium (8.4-10.2) mg/dL Phosphorus (2.5-4.5) mg/dL Magnesium (1.6-2.3) mg/dL Microbiology - Last 24 Hours (Table) 12/21/17 07:20 Gram Stain - Preliminary Sputum Sputum Culture - Preliminary Gram Neg Bacilli 12/20/17 19:38 Blood Culture Gram Stain - Preliminary Blood Blood Culture - Preliminary Gram Neg Bacilli Assessment and Plan Assessment: Patient seen and examined. Patient remains intubated in ICU. Following commands. SBT attempted and stopped due to tachypnea, tachycardia. Patient is on levophed 7 mcg/min. Family wanting to discuss goals of care.
[2017-12-22] MEDS ORDERED: FUROSEMIDE 10 MG/ML 10 ML VIAL IV STA (13:59)
--- NOTE | 2017-12-22 14:31 | PN ---
PROGRESS NOTE Patient is seen for followup for acute kidney injury and hyperkalemia. Patient's serum potassium remains elevated, although it is slightly improved at 5.8 from 6.8 yesterday. The output remains at about 40 mL an hour. Patient was maintained on Lasix drip yesterday. However, she became hypotensive and the Lasix was then discontinued. Patient continues to maintain fair urine output. Levophed is currently at about 14 mcg and her blood pressure is good and Levophed is currently being weaned down. PHYSICAL EXAMINATION: Patient is on the vent. Blood pressure one earlier was 95/53, another blood pressure 111/74, heart rate about 120 per minute. She is afebrile. Examination of the heart, S1, S2. Examination of the lungs, bilateral breath sounds are heard. Abdomen is soft, nontender. Examination of lower extremities shows edema 3+ bilaterally. ACADEMIC REGISTRAR exam is grossly intact. LABS: Show sodium of 128, potassium 5.8, chloride 90, CO2 is 29, BUN 98, serum creatinine 3.4. ASSESSMENT: 1. Acute kidney injury, acute tubular necrosis secondary to sepsis, currently hypotension as well. Urine output is maintained at about 35-50 mL an hour. Patient is off of Lasix drip. She is in significant positive fluid balance. I will continue minimal IV fluids and if the potassium is increased again, we can give her IV push Lasix. 2. Hyperkalemia associated with acute kidney injury, currently slightly improved. Expect further improvement as urine output is maintained and possibility of gastrointestinal bleed is entertained. 3. Gram-negative bacteremia with UA, not showing any significant pyuria. Urine WBC was only 2. Patient is maintained on antibiotics. Source is unclear. 4. Hyperphosphatemia related to renal failure. 5. Ventilator-dependent respiratory failure. 6. Anemia. Hemoglobin has dropped further to 7.5 g/dL. No active bleeding noted. There is suspicion for underlying gastrointestinal bleed. 7. Hyponatremia secondary to renal failure and it is hypervolemic. 8. Volume overload with significant third spacing associated with sepsis and renal failure. We will give Lasix x1. PLAN: Change tube feedings to Nepro given the hyperphosphatemia and continued hyperkalemia. Lasix x1. Decreased fluids. Continue to wean down pressors. Check stool for occult blood. Overall prognosis is guarded. MMODL / IJN: [id number] /
--- NOTE | 2017-12-22 14:46 | CDI ---
Last Revision, February 2017 Documentation Clarification Form Date: 12/22/2017 2:29:00 PM From: Beatriz Jordan RN, CCDS Admit Date: 12/20/2017 8:09:00 PM Patient Name: Yulissa Arana Visit Number: [id number] ATTENTION: The Clinical Documentation Specialists (CDI) and [facility] Coding Staff appreciate your assistance in clarifying documentation. Please respond to the clarification below the line at the bottom and electronically sign. The CDI & [facility] Coding staff will review the response and follow-up if needed. Please note: Queries are made part of the Legal Health Record. If you have any questions, please contact the author of this message via ITS. Dominique Hdz MD Hypotension is documented in the Pulmonary progress note and requires further specicficty. Patient history/risk factors: Gram negative sepsis with gram negative pneumonia, a/c hypoxic & hypercapnic respiratory failure, A/C diastolic CHF, ARF w/ CKD stage 3, Anemia of chronic disease. Clinical Indicators: 12/22 Pulmonary Progress Note: "Levophed for hypotension" Vitals: Temp 98, hr 101,rr 26, b/p 148/65, spo2 98% BiPap Treatment: Lasix 60 mg IVP followed by Lasix Gtt @ 10 cc/hr Levophed Gtt titrate for B/P 1.5L Ivf Bolus In your professional opinion, can you please specify the type of shock if known ? Septic Shock Suspected or known causative organism Any associated organ failure Cardiogenic Shock Cause Hypovolemic Shock Cause Other, please specify Unable to determine Please continue to document in your progress notes and discharge summary in order to capture severity of illness and risk of mortality. Include clinical findings that support your diagnosis. Not my documentation. please give to dr britany ROWLEY
--- NOTE | 2017-12-22 15:12 | CDI ---
Last Revision, February 2017 Documentation Clarification Form Date: 12/22/2017 2:53:00 PM From: Beatriz Jordan Admit Date: 12/20/2017 8:09:00 PM Patient Name: Yulissa Arana Visit Number: [id number] ATTENTION: The Clinical Documentation Specialists (CDI) and [facility] Coding Staff appreciate your assistance in clarifying documentation. Please respond to the clarification below the line at the bottom and electronically sign. The CDI & [facility] Coding staff will review the response and follow-up if needed. Please note: Queries are made part of the Legal Health Record. If you have any questions, please contact the author of this message via ITS. Dominique Hdz MD Altered mental status was documented in the EC Note. Patient history/risk factors: CKD stage III, UTI, Anemia of chronic disease, A/C hypoxic respiratory failure, A/C Hypoxic & Hypercapnic respiratory failure, Sepsis with gram negative pneumonia Clinical Indicators: 12/20 Ed note: "altered mental status." 12/21 H&P: "Increased confusion past few months." Labs: Hgb 9.6/8.4/7.5, trop .049 CXR:"New complete opacification of the right hemithorax and retrocardiac airspace possibly relating to a loculated pleural effusion although underlying pneumonia is also a consideration. Left small pleural effusion and associated airspace disease are stable." CT Brain: White matter changes suggestive of remote microvascular ischemia Treatment: IVP Solumedrol w/ taper Iv Levaquin, IV Zosyn 1.5L IVF Bolus IV HCO3 IV D50 IV Ca+gl- Iv Insulin In your professional opinion, please clarify the etiology of the altered mental status, if known. Encephalopathy (specify Type- Metabolic, Septic, Anoxic and Underlying Medical Illness) Dementia (if know, specify Type and if with/without Behavioral Disturbance) Other condition (please specify) Unable to determine Please continue to document in your progress notes and discharge summary in order to capture severity of illness and risk of mortality. Include clinical findings that support your diagnosis. not my documentation. pl give to dr britany ROWLEY
--- NOTE | 2017-12-22 15:58 | P.PN ---
Subjective 72-year-old female presently on Levophed being treated for septic shock, is intubated at this time for respiratory failure. Patient is also being treated for chronic diastolic dysfunction with acute exacerbation patient overall prognosis is externally poor multiple hospitalizations recently. Patient is presently on Zosyn and blood cultures are showing gram-negative bacilli. Blood is being opted for today and tomorrow patient remains intubated without any significant improvement in her respiratory status. Patient's creatinine continued to worse received IV Lasix today does have good urine output. Remains hyponatremic improvement improved serum potassium. Also a right lower lobe pneumonia being the source of sepsis. Objective - Vital Signs Vital signs: Vital Signs Temp 97.8 F 12/22/17 08:15 Pulse 108 H 12/22/17 15:15 Resp 21 12/22/17 09:55 BP 111/74 12/22/17 09:55 Pulse Ox 98 12/22/17 09:55 Intake & Output 12/21/17 12/22/17 12/22/17 18:59 06:59 18:59 Intake Total 2497.913 5260.097 902.259 Output Total 418 520 605 Balance 606.516 8255.097 297.259 Weight 115.666 kg 128.5 kg Intake: IV 1250 1350 260 .9 NS 260 Calcium Gluconate 1,000 100 mg In Sodium Chloride 0.9 % 100 ml @ 100 mls/hr IVPB ONCE ONE Rx#: [id number] Piperacillin-Tazobactam 3 50 50 .375 gm In Dextrose/Water 1 50ml.bag @ 12.5 mls/hr IVPB Q12HR LOUANN Rx#: [id number] Sodium Chloride 0.9% 1, 1100 1300 000 ml @ 100 mls/hr IV . Q10H STA Rx#:[id number] Intake, IV Titration 165.840 359.097 338.259 Amount Furosemide 250 mg In 25.833 Sodium Chloride 0.9% 225 ml @ 10 MG/HR 10 mls/hr IVP .Q24H LOUANN Rx#: [id number] Midazolam HCl 100 mg In 7.238 Sodium Chloride 0.9% 80 ml @ 0.02 MG/KG/HR 2.31 mls/hr IV .Q24H [facility]OUANN Rx#: [id number] Norepinephrine 4 mg In 3.125 246.875 250.000 Sodium Chloride 0.9% 250 ml @ Titrate IV .Q0M [facility]ANN Rx#:[id number] Propofol 1,000 mg In 92.110 112.222 88.259 Empty Bag 1 bag @ Titrate IV .Q0M L[facility]ANN Rx#: [id number] fentaNYL (PF) 2,500 mcg 37.534 In Sodium Chloride 0.9% 200 ml @ 1 MCG/KG/HR 11. 56 mls/hr IV .[id number] LOUANN Rx#:[id number] Tube Feeding 240 304 Other 90 Output: Gastric Drainage 125 Urine 293 520 605 Other: Voiding Method Indwelling Catheter Indwelling Catheter Indwelling Catheter - Exam PHYSICAL EXAMINATION: GENERAL: Patient is intubated sided morbidly obese HEENT: Pupils are round and equally reacting to light. EOMI. No scleral icterus. No conjunctival pallor. Normocephalic, atraumatic. No pharyngeal erythema. No thyromegaly. CARDIOVASCULAR: S1 and S2 present. No murmurs, rubs, or gallops. PULMONARY: Chest is clear to auscultation, no wheezing or crackles. ABDOMEN: Soft, nontender, nondistended, normoactive bowel sounds. No palpable organomegaly. MUSCULOSKELETAL: No joint swelling or deformity. EXTREMITIES: No cyanosis, clubbing, or bilateral extensive 3+ pitting pedal edema with some chronic ulcerations of bullous lesions from peripheral edema NEUROLOGICAL: Patient is presently intubated and sedated SKIN: No rashes. - Labs CBC & Chem 7: 12/22/17 04:55 12/22/17 10:34 Labs: Abnormal Lab Results - Last 24 Hours (Table) 12/21/17 12/21/17 12/21/17 Range/Units 13:02 16:39 18:50 RBC (3.80-5.40) m/uL Hgb (11.4-16.0) gm/dL Hct (34.0-46.0) % Lymphocytes # (1.0-4.8) k/uL Lymphocytes # (Manual) 0.56 L (1.0-4.8) k/uL Metamyelocytes # (Man) 0.30 H (0) k/uL Myelocytes # (Manual) 0.34 H (0) k/uL Nucleated RBCs 3 H (0-0) /100 WBC ABG pCO2 (35-45) mmHg ABG HCO3 (21-25) mmol/L ABG Total CO2 (19-24) mmol/L ABG O2 Saturation (94-97) % Sodium (137-145) mmol/L Potassium 5.5 H (3.5-5.1) mmol/L Chloride (98-107) mmol/L BUN (7-17) mg/dL Creatinine (0.52-1.04) mg/dL Glucose (74-99) mg/dL POC Glucose (mg/dL) 171 H (75-99) mg/dL Hemoglobin A1c (4.0-6.0) % Calcium (8.4-10.2) mg/dL Phosphorus (2.5-4.5) mg/dL Magnesium (1.6-2.3) mg/dL 12/21/17 12/21/17 12/22/17 Range/Units 18:50 19:13 00:05 RBC (3.80-5.40) m/uL Hgb (11.4-16.0) gm/dL Hct (34.0-46.0) % Lymphocytes # (1.0-4.8) k/uL Lymphocytes # (Manual) (1.0-4.8) k/uL Metamyelocytes # (Man) (0) k/uL Myelocytes # (Manual) (0) k/uL Nucleated RBCs (0-0) /100 WBC ABG pCO2 (35-45) mmHg ABG HCO3 (21-25) mmol/L ABG Total CO2 (19-24) mmol/L ABG O2 Saturation (94-97) % Sodium (137-145) mmol/L Potassium (3.5-5.1) mmol/L Chloride (98-107) mmol/L BUN (7-17) mg/dL Creatinine (0.52-1.04) mg/dL Glucose (74-99) mg/dL POC Glucose (mg/dL) 174 H 181 H (75-99) mg/dL Hemoglobin A1c 7.1 H (4.0-6.0) % Calcium (8.4-10.2) mg/dL Phosphorus (2.5-4.5) mg/dL Magnesium (1.6-2.3) mg/dL 12/22/17 12/22/17 12/22/17 Range/Units 04:55 04:55 04:59 RBC 2.65 L (3.80-5.40) m/uL Hgb 7.5 L (11.4-16.0) gm/dL Hct 23.8 L (34.0-46.0) % Lymphocytes # 0.3 L (1.0-4.8) k/uL Lymphocytes # (Manual) (1.0-4.8) k/uL Metamyelocytes # (Man) (0) k/uL Myelocytes # (Manual) (0) k/uL Nucleated RBCs (0-0) /100 WBC ABG pCO2 46 H (35-45) mmHg ABG HCO3 32 H (21-25) mmol/L ABG Total CO2 33 H (19-24) mmol/L ABG O2 Saturation 98.2 H (94-97) % Sodium 128 L (137-145) mmol/L Potassium 5.8 H (3.5-5.1) mmol/L Chloride 90 L (98-107) mmol/L BUN 98 H (7-17) mg/dL Creatinine 3.44 H (0.52-1.04) mg/dL Glucose 159 H (74-99) mg/dL POC Glucose (mg/dL) (75-99) mg/dL Hemoglobin A1c (4.0-6.0) % Calcium 7.7 L (8.4-10.2) mg/dL Phosphorus 6.1 H (2.5-4.5) mg/dL Magnesium 2.7 H (1.6-2.3) mg/dL 12/22/17 12/22/17 12/22/17 Range/Units 06:19 10:34 11:56 RBC (3.80-5.40) m/uL Hgb (11.4-16.0) gm/dL Hct (34.0-46.0) % Lymphocytes # (1.0-4.8) k/uL Lymphocytes # (Manual) (1.0-4.8) k/uL Metamyelocytes # (Man) (0) k/uL Myelocytes # (Manual) (0) k/uL Nucleated RBCs (0-0) /100 WBC ABG pCO2 (35-45) mmHg ABG HCO3 (21-25) mmol/L ABG Total CO2 (19-24) mmol/L ABG O2 Saturation (94-97) % Sodium (137-145) mmol/L Potassium 5.4 H (3.5-5.1) mmol/L Chloride (98-107) mmol/L BUN (7-17) mg/dL Creatinine (0.52-1.04) mg/dL Glucose (74-99) mg/dL POC Glucose (mg/dL) 292 H 177 H (75-99) mg/dL Hemoglobin A1c (4.0-6.0) % Calcium (8.4-10.2) mg/dL Phosphorus (2.5-4.5) mg/dL Magnesium (1.6-2.3) mg/dL Microbiology - Last 24 Hours (Table) 12/21/17 07:20 Gram Stain - Preliminary Sputum Sputum Culture - Preliminary Gram Neg Bacilli 12/20/17 19:38 Blood Culture Gram Stain - Preliminary Blood Blood Culture - Preliminary Gram Neg Bacilli Assessment and Plan Plan: Acute on chronic hypercapnic and hypoxic respiratory failure: Patient is presently intubated on assist-control ventilation further management as per printed circuit board pcb designer. Acute hypoxic respiratory failure secondary to pulmonary edema patient is on IV Lasix -Septic shock with gram-negative bacteremia source possibly pneumonia Infectious disease is following the patient patient is on Zosyn . -Congestive heart failure chronic diastolic dysfunction with acute exacerbation -Acute renal failure secondary to heart failure exacerbation and maybe lisinopril is contributing to that. Nephrology is following the patient, patient is on high-dose of Lasix. 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
[2017-12-22 18:10] LABS: Glucose,Whole Blood 148 mg/dL (75-99)
[2017-12-22] MEDS: FUROSEMIDE 250 MG in SODIUM CHLORIDE 0.9% 225 ML IVP SCH (19:57)
[2017-12-22] MEDS ORDERED: LEVOFLOXACIN 750MG-D5W PMX 750 MG in DEXTROSE/WATER 1 150ML.BAG IVPB SCH (20:00)
--- NOTE | 2017-12-22 22:34 | PN ---
PROGRESS NOTE DATE OF SERVICE: 12/22/2017. REASON FOR FOLLOWUP: Gram-negative bacteremia and pneumonia. INTERVAL HISTORY: The patient is currently afebrile. She is hemodynamically stable, requiring a 7 mics of Levophed. Her FiO2 is stable currently at 50% and no significant diarrhea has been noted by nursing staff. EXAMINATION: Blood pressure is 111/70 with a pulse of 100. Temperature 98. She is 98% on 50% FiO2. General description is an elderly female lying in bed in no distress. Respiratory system unlabored breathing. Decreased breath sounds in the bases. No wheeze. Heart S1, S2. Regular rate and rhythm. Abdomen soft, no tenderness. Extremities: No edema of the feet. LABS: Hemoglobin 7.5, white count 8.1. BUN of 98, creatinine 3.4. DIAGNOSTIC IMPRESSION AND PLAN: Patient with an E coli bacteremia source, possible abdominal. Less likely urinary as urine was not significantly positive or an aspiration pneumonia. The patient is currently covered with Zosyn to continue for now while watching clinical course closely. Continue supportive care. MMODL / ROSALINAN: [id number] /
[2017-12-23] MEDS: INSULIN ASPART 100 UNIT/ML 1 ML 10 ML VIAL SQ SCH ×2 (00:35→06:25)
[2017-12-23 00:36] LABS: Glucose,Whole Blood 124 mg/dL (75-99)
[2017-12-23] MEDS: PROPOFOL 1,000 MG in EMPTY BAG 1 BAG IV SCH ×2 (02:45→08:34)
[2017-12-23 04:48] LABS: ABG Base Excess 8.5 mmol/L; ABG HCO3 33 mmol/L (21-25); ABG PCO2 50 mmHg (35-45); ABG PH 7.42 (7.35-7.45); ABG PO2 110 mmHg (83-108); ABG TCO2 34 mmol/L (19-24)
[2017-12-23 05:07] LABS: Calcium 7.7 mg/dL (8.4-10.2)
[2017-12-23 05:25] LABS: Potassium 5.3 mmol/L (3.5-5.1)
[2017-12-23 05:27] LABS: Magnesium 2.6 mg/dL (1.6-2.3); Phosphorus 7.8 mg/dL (2.5-4.5)
[2017-12-23 05:28] LABS: HCT 25.2 % (34.0-46.0); HGB 8.4 gm/dL (11.4-16.0); MCH 29.2 pg (25.0-35.0); MCHC 33.2 g/dL (31.0-37.0); MCV 88.1 fL (80.0-100.0); Mean Platelet Volume 7.2; Platelet Count 205 k/uL (150-450); RBC 2.86 m/uL (3.80-5.40); RDW 15.7 % (11.5-15.5)
[2017-12-23 06:22] LABS: Glucose,Whole Blood 108 mg/dL (75-99)
[2017-12-23 06:24] LABS: Band Neutrophils % 1 %; Lymphocytes # (M) 0.74 k/uL (1.0-4.8); Metamyelocytes # (M) 0.12 k/uL (0); Metamyelocytes % 1 %; Monocytes # (M) 0.74 k/uL (0-1.0); Neutrophils % (M) 88 %; Nucleated Red Blood Cells 1 /100 WBC (0-0); Total Cells Counted 200; WBC 12.4 k/uL (3.8-10.6)
[2017-12-23 06:25] LABS: Polychromasia Present
[2017-12-23] MEDS: METOPROLOL TARTRATE 25 MG TAB PO SCH (06:41)
[2017-12-23] MEDS: NOREPINEPHRINE 4 MG in SODIUM CHLORIDE 0.9% 250 ML IV SCH (07:06)
[2017-12-23] MEDS: BUDESONIDE 0.5 MG/2 ML NEBU INHALATION SCH (07:13)
[2017-12-23] MEDS: IPRATROPIUM-ALBUTEROL 3 ML NEB INHALATION SCH (07:13)
--- NOTE | 2017-12-23 07:27 | XR ---
EXAMINATION TYPE: XR chest 1V DATE OF EXAM: 12/23/2017 CLINICAL HISTORY: Difficulty breathing progress study. TECHNIQUE: Single AP portable upright view of the chest is obtained. COMPARISON: Chest x-ray from one day earlier and older studies. FINDINGS: An endotracheal tube and orogastric tube are stable in position. There is persistent cardi omegaly with atherosclerotic thoracic aorta. There is persistent left basilar opacity and near comple te opacification of the right hemithorax with relative sparing of the right lung apex. Osseous struct ures are intact. IMPRESSION: Overall stable findings, diffuse right lung infiltrate and/or edema, cannot exclude und erlying right-sided effusion. Cardiomegaly with small left pleural effusion and left basilar atelecta sis and/or infiltrate also redemonstrated. No significant change from prior.
[2017-12-23] MEDS ORDERED: CALCIUM ACETATE 667 MG CAP PO SCH (07:30)
[2017-12-23 08:20] VITALS: TEMP 98.7
[2017-12-23] MEDS: PANTOPRAZOLE 40 MG/10 ML VIAL IVP SCH (08:34)
[2017-12-23] MEDS: PIPERACILLIN-TAZOBACTAM 3.375 GM in DEXTROSE/WATER 1 50ML.BAG IVPB SCH (08:34)
[2017-12-23] MEDS: APIXABAN 2.5 MG TABLET PO SCH (08:34)
[2017-12-23] MEDS: CHLORHEXIDINE GLUCONATE 15 ML CUP MUCOUS MEM SCH (08:34)
--- NOTE | 2017-12-23 10:02 | P.PN ---
Subjective Progress Note Date: 12/23/17 History of present illness: This is a 77-year-old female who presented emergency department with hypoxia and shortness of breath. The patient was at [facility] and was placed on 5 L nasal cannula and was still hypoxic. The patient was subsequently brought to the emergency department. EMS had placed the patient on CPAP. He was recently admitted on 12/07/2017 and discharged on 12/15/2017 with similar complaints. At that time the patient was found to have acute exacerbation of congestive heart failure. She was diuresed and had thoracentesis and was sent to [facility]. While in the emergency department physician was placed on BiPAP and given Lasix. She had poor response to the Lasix. She became obtunded and was subsequently intubated. The patient is seen and examined in the emergency department today. The patient has been hemodynamically stable she was found to have gram-negative bacteremia. She is currently intubated. She has been afebrile overnight. It is noted that the patient has a dilated right pupil and 2 mm left pupil. The right pupil is less reactive. The patient was sent for CT of the brain this morning which showed no acute process it did show remote ischemic changes. This is discussed with the family at length. Patient is unable to go for MRI at this time due to her respiratory status. We will repeat CT of the brain in 48 hours. Interval history: 12/22/2017patient is being seen examined and evaluated today in the intensive care unit. She remains on mechanical ventilation with propofol for sedation. She currently is on assist control mode with respiratory rate 14, tidal volume of 500, FiO2 50% and a PEEP of 5. ABGs from this morning were reviewed and she had a pH of 7.44 pCO2 of 46 pO2 of 101 and HCO3 of 32. She currently is on Levophed at 8 mics and propofol at 25 mics. She is synchronous with the ventilator. She has had good urine output. Chest x-ray from this morning was reviewed and does show complete opacification of right hemothorax with possible loculated effusion, underlying pneumonia cannot be excluded. She was initially on a Lasix drip however when her blood pressures became low nephrology did stop that for the time being and is considering putting her on IV push Lasix. The patient did undergo a sedation holiday this morning and was able to follow commands. Her pupils are both equal round and reactive to light and accommodation. Feedings have been started per dietary. Family is updated at bedside on plan of care. 12/23/17- patient is being seen examined and evaluated today in the intensive care unit. She remains on mechanical ventilation with her propofol for sedation. Currently she is on propofol at 10 mics and her Levothroid has been titrated down to 6. She is able to follow commands. She has had some good urine output. Family is at bedside. Hospice was consulted yesterday and met with the family this morning. Apparently the patient's is currently in the hospital as well and he is being discharged at noon, at that time he is going to come over to see the patient in ICU and will discuss with hospice nurse and the family whether they would like to go forth with comfort care and extubation. Discussed goals of care with family. They state their mother had expressed previously that her wishes were not to be on ventilator for more than 1-2 days. She did not want aggressive treatment. Her blood culture have analyzed and does show E. coli. Chest x-ray is reviewed in remains unchanged. Labs this morning did show a sodium of 134, potassium of 5.3, BUN 110, creatinine 2.76, magnesium 2.6, WBC 12.4, hemoglobin 8.4, All labs and reports reviewed. Objective - Vital Signs Vital signs: Vital Signs Temp 98.7 F 12/23/17 08:00 Pulse 117 H 12/23/17 08:15 Resp 25 H 12/23/17 08:15 BP 97/61 12/23/17 08:15 Pulse Ox 86 L 12/23/17 08:15 Intake & Output 12/22/17 12/23/17 12/23/17 18:59 06:59 18:59 Intake Total 8818.127 0352.000 270.063 Output Total 835 1500 125 Balance 341.259 -376.000 145.063 Weight 128.503 kg Intake: IV 290 160 100 .9 NS 290 160 100 Intake, IV Titration 438.259 600.000 144.063 Amount Norepinephrine 4 mg In 250.000 500.000 44.063 Sodium Chloride 0.9% 250 ml @ Titrate IV .Q0M LOUANN Rx#:[id number] Propofol 1,000 mg In 188.259 100 100 Empty Bag 1 bag @ Titrate IV .Q0M LOUANN Rx#: [id number] Tube Feeding 448 274 26 Other 90 Output: Urine 835 1500 125 Other: Voiding Method Indwelling Catheter Indwelling Catheter - Exam Gen.: Patient is sedated and intubated Cardiovascular: Regular rate and rhythm, S1/S2 Lungs: Coarse breath sounds bilaterally, diminished more so on the right. Abdomen: Soft nontender nondistended positive bowel sounds Extremities: 1-2+ edema Neuro: On sedation, pupils now equal round reactive to light and accommodation - Labs CBC & Chem 7: 12/23/17 04:26 12/23/17 04:26 Labs: Abnormal Lab Results - Last 24 Hours (Table) 12/22/17 12/22/17 12/22/17 Range/Units 10:34 11:56 18:09 WBC (3.8-10.6) k/uL RBC (3.80-5.40) m/uL Hgb (11.4-16.0) gm/dL Hct (34.0-46.0) % RDW (11.5-15.5) % Neutrophils # (Manual) (1.3-7.7) k/uL Lymphocytes # (Manual) (1.0-4.8) k/uL Metamyelocytes # (Man) (0) k/uL Nucleated RBCs (0-0) /100 WBC ABG pCO2 (35-45) mmHg ABG pO2 (83-108) mmHg ABG HCO3 (21-25) mmol/L ABG Total CO2 (19-24) mmol/L ABG O2 Saturation (94-97) % Sodium (137-145) mmol/L Potassium 5.4 H (3.5-5.1) mmol/L Chloride (98-107) mmol/L BUN (7-17) mg/dL Creatinine (0.52-1.04) mg/dL Glucose (74-99) mg/dL POC Glucose (mg/dL) 177 H 148 H (75-99) mg/dL Calcium (8.4-10.2) mg/dL Phosphorus (2.5-4.5) mg/dL Magnesium (1.6-2.3) mg/dL 12/23/17 12/23/17 12/23/17 Range/Units 00:34 04:26 04:26 WBC 12.4 H (3.8-10.6) k/uL RBC 2.86 L (3.80-5.40) m/uL Hgb 8.4 L (11.4-16.0) gm/dL Hct 25.2 L (34.0-46.0) % RDW 15.7 H (11.5-15.5) % Neutrophils # (Manual) 11.00 H (1.3-7.7) k/uL Lymphocytes # (Manual) 0.74 L (1.0-4.8) k/uL Metamyelocytes # (Man) 0.12 H (0) k/uL Nucleated RBCs 1 H (0-0) /100 WBC ABG pCO2 (35-45) mmHg ABG pO2 (83-108) mmHg ABG HCO3 (21-25) mmol/L ABG Total CO2 (19-24) mmol/L ABG O2 Saturation (94-97) % Sodium 134 L (137-145) mmol/L Potassium 5.3 H (3.5-5.1) mmol/L Chloride 93 L (98-107) mmol/L BUN 110 H* (7-17) mg/dL Creatinine 2.76 H (0.52-1.04) mg/dL Glucose 115 H (74-99) mg/dL POC Glucose (mg/dL) 124 H (75-99) mg/dL Calcium 7.7 L (8.4-10.2) mg/dL Phosphorus 7.8 H (2.5-4.5) mg/dL Magnesium 2.6 H (1.6-2.3) mg/dL 12/23/17 12/23/17 Range/Units 04:38 06:21 WBC (3.8-10.6) k/uL RBC (3.80-5.40) m/uL Hgb (11.4-16.0) gm/dL Hct (34.0-46.0) % RDW (11.5-15.5) % Neutrophils # (Manual) (1.3-7.7) k/uL Lymphocytes # (Manual) (1.0-4.8) k/uL Metamyelocytes # (Man) (0) k/uL Nucleated RBCs (0-0) /100 WBC ABG pCO2 50 H (35-45) mmHg ABG pO2 110 H (83-108) mmHg ABG HCO3 33 H (21-25) mmol/L ABG Total CO2 34 H (19-24) mmol/L ABG O2 Saturation 100.0 H (94-97) % Sodium (137-145) mmol/L Potassium (3.5-5.1) mmol/L Chloride (98-107) mmol/L BUN (7-17) mg/dL Creatinine (0.52-1.04) mg/dL Glucose (74-99) mg/dL POC Glucose (mg/dL) 108 H (75-99) mg/dL Calcium (8.4-10.2) mg/dL Phosphorus (2.5-4.5) mg/dL Magnesium (1.6-2.3) mg/dL Microbiology - Last 24 Hours (Table) 12/20/17 19:38 Blood Culture Gram Stain - Final Blood Blood Culture - Final Escherichia coli 12/21/17 07:20 Gram Stain - Preliminary Sputum Sputum Culture - Preliminary Gram Neg Bacilli Assessment and Plan Assessment: Assessment Acute on chronic hypoxic and hypercapnic respiratory failure Bilateral infiltrates R > L concerning for pulmonary edema Small bilateral pleural effusions Gram negative bacteremia Acute exacerbation of CHF NSTEMI Hyponatremia Hyperkalemia ARUN on CKD 3-4 Anemia, normochromic, normocytic Transaminitis Moderate PCM Dilated right pupil of unclear etiology Remote ischemic changes on brain CT Hypertension Recent RLE DVT Severe persistent asthma Multifocal atrial tachycardia Obesity History of MAIRA Hypotension Plan Continue full ventilator support Hospice nurse did meet with patient's family this morning, they will meet again this afternoon once her arrives to discuss possible extubation with comfort care Chest x-ray reviewed and recommended a CT of the chest to evaluate for pulmonary effusions versus mucous plugging versus pneumonia- however family would like to hold on the CT for now Diuresis, Lasix per nephrology Blevins catheter with strict I/O ABX: Levaquin, Zosyn, consult ID Cardiology recommendations ABGs reviewed CT brain results discussed with family, will repeat in 48 hours Propofol drip for sedation Levophed for hypotension Nephrology recommendations Eliquis for DVT prophylaxis Protonix for GI prophylaxis Pulmicort, Duonebs Blood, urine, sputum cultures Serial CXR Tube feeds Code status discussed with family, they agree with no CPR, no defibrillation or intubation temporarily okay. I, the signing physician performed an examination of the patient, discussed and directed their management with the nurse practitioner. I have reviewed the nurse practitioner's note and agree with the documented findings, orders and plan of care.
[2017-12-23 10:39] VITALS: BP 86/67; PULSE 138; RESP 23
--- NOTE | 2017-12-23 15:22 | P.DS ---
Providers Date of admission: 12/20/17 20:09 Attending physician: Dominique Toro Consults: 12/20/17 20:09 Consult Physician Routine Consulting Provider: Florentino Torres Consult Reason/Comments: chf Do you want consulting provider notified?: Yes Consult Physician Routine Consulting Provider: Antonia Jalloh Consult Reason/Comments: hypoxiaICU Do you want consulting provider notified?: Yes 12/21/17 06:21 Consult Physician Routine Consulting Provider: Roxane Gerardo Consult Reason/Comments: nephro consult per Dr. Beltre Do you want consulting provider notified?: Yes 12/21/17 09:04 Consult Physician Urgent Consulting Provider: Robbin Whitman Consult Reason/Comments: positive blood cultures Do you want consulting provider notified?: Yes Primary care physician: Sam [facility] Hospital Course: 72-year-old female presently on Levophed being treated for septic shock, is intubated at this time for respiratory failure. Patient is also being treated for chronic diastolic dysfunction with acute exacerbation patient overall prognosis is externally poor multiple hospitalizations recently. Patient is presently on Zosyn and blood cultures are showing gram-negative bacilli. Blood is being opted for today and tomorrow patient remains intubated without any significant improvement in her respiratory status. Patient's creatinine continued to worse received IV Lasix today does have good urine output. Remains hyponatremic improvement improved serum potassium. Also a right lower lobe pneumonia being the source of sepsis. 12/23/2017 Patient remains on 9 remains intubated and mechanically ventilated family decided on hospice and patient will be terminally extubated today transfer to a different floor and patient was started on IV morphine and will be admitted to inpatient hospice PHYSICAL EXAMINATION: GENERAL: Patient is intubated sided morbidly obese HEENT: Pupils are round and equally reacting to light. EOMI. No scleral icterus. No conjunctival pallor. Normocephalic, atraumatic. No pharyngeal erythema. No thyromegaly. CARDIOVASCULAR: S1 and S2 present. No murmurs, rubs, or gallops. PULMONARY: Chest is clear to auscultation, no wheezing or crackles. ABDOMEN: Soft, nontender, nondistended, normoactive bowel sounds. No palpable organomegaly. MUSCULOSKELETAL: No joint swelling or deformity. EXTREMITIES: No cyanosis, clubbing, or bilateral extensive 3+ pitting pedal edema with some chronic ulcerations of bullous lesions from peripheral edema NEUROLOGICAL: Patient is presently intubated and sedated SKIN: No rashes. Assessment and Plan Plan: Acute on chronic hypercapnic and hypoxic respiratory failure: Patient is presently intubated on assist-control ventilation will be terminally extubated today -Septic shock with gram-negative bacteremia source possibly pneumonia Infectious -Congestive heart failure chronic diastolic dysfunction with acute exacerbation -Acute renal failure secondary to heart failure exacerbation and maybe lisinopril is contributing to that. 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 baseline creatinine of around 1.3 -Hyperkalemia secondary to acute renal failure, chronic kidney disease and lisinopril -Anemia of chronic disease -Transaminitis secondary to hepatic congestion -Made dilated right pupil CAT scan negative for any hemorrhage -History of CVA in the past -History of DVT in the past -COPD without any acute exacerbation -Morbid obesity obstructive sleep apnea Patient Condition at Discharge: Critical Plan - Discharge Summary Discharge Rx Participant: No New Discharge Prescriptions: No Action Acetaminophen [Tylenol] 650 mg PO Q6H PRN PRN Reason: Pain Cholecalciferol [Vitamin D3] 2,000 unit PO HS Atorvastatin [Lipitor] 40 mg PO HS Magnesium Oxide 400 mg PO HS Famotidine 20 mg PO DAILY Montelukast [Singulair] 10 mg PO HS Ammonium Lactate Cream [Lac-Hydrin 12% Cream] 1 applic TOPICAL BID ARIPiprazole [Abilify] 5 mg PO DAILY tab Diltiazem Cd [Cardizem CD] 360 mg PO DAILY cap.er.24h Furosemide [Lasix] 40 mg PO BID@0900,1600 tab Apixaban [Eliquis] 5 mg PO BID@0900,1600 INSULIN LISPRO (HumaLOG) [humaLOG] See Protocol SQ ACHS Ipratropium-Albuterol Nebulize [Duoneb 0.5 mg-3 mg/3 ml Soln] 3 ml INHALATION RT-QID@05,11,17,23 Ipratropium-Albuterol Nebulize [Duoneb 0.5 mg-3 mg/3 ml Soln] 3 ml INHALATION RT-Q4H PRN PRN Reason: Shortness Of Breath Menthol-Zinc Oxide Oint [Calmoseptine Oint] 1 applic TOPICAL TID Metolazone [Zaroxolyn] 5 mg PO DAILY predniSONE See Taper PO DIRECTED Discharge Medication List Acetaminophen [Tylenol] 650 mg PO Q6H PRN 07/31/13 [History] Cholecalciferol [Vitamin D3] 2,000 unit PO HS 07/31/13 [History] Ammonium Lactate Cream [Lac-Hydrin 12% Cream] 1 applic TOPICAL BID 12/07/17 [ History] Atorvastatin [Lipitor] 40 mg PO HS 12/07/17 [History] Famotidine 20 mg PO DAILY 12/07/17 [History] Magnesium Oxide 400 mg PO HS 12/07/17 [History] Montelukast [Singulair] 10 mg PO HS 12/07/17 [History] ARIPiprazole [Abilify] 5 mg PO DAILY tab 12/15/17 [Rx] Diltiazem Cd [Cardizem CD] 360 mg PO DAILY cap.er.24h 12/15/17 [Rx] Furosemide [Lasix] 40 mg PO BID@0900,1600 tab 12/15/17 [Rx] Apixaban [Eliquis] 5 mg PO BID@0900,1600 12/20/17 [History] INSULIN LISPRO (HumaLOG) [humaLOG] See Protocol SQ ACHS 12/20/17 [History] Ipratropium-Albuterol Nebulize [Duoneb 0.5 mg-3 mg/3 ml Soln] 3 ml INHALATION RT -Q4H PRN 12/20/17 [History] Ipratropium-Albuterol Nebulize [Duoneb 0.5 mg-3 mg/3 ml Soln] 3 ml INHALATION RT -QID@05,11,17,23 12/20/17 [History] Menthol-Zinc Oxide Oint [Calmoseptine Oint] 1 applic TOPICAL TID 12/20/17 [ History] Metolazone [Zaroxolyn] 5 mg PO DAILY 12/20/17 [History] predniSONE See Taper PO DIRECTED 12/20/17 [History] Follow up Appointment(s)/Referral(s): Sam Butler MD [Primary Care Provider] [facility] [facility] - 1 Week Discharge Disposition: [facility] TO [facility]
--- NOTE | 2017-12-23 21:50 | PN ---
PROGRESS NOTE Patient was seen this morning and she. Family was present at bedside and family was deciding regarding terminal weaning. In the morning, when patient was seen, her blood pressure was 94/60, she had a heart rate about 120 to 130 per minute. Patient has been afebrile. Urine output had improved overnight to 100 and 125 mL an hour. The patient remains on the vent. Sedation is being held. She is actually following commands. EXAMINATION: This morning, blood pressure 94/60, heart rate 125 per minute. Patient was afebrile. Examination of the heart S1, S2. Examination of lungs bilateral breath sounds are heard. Abdomen is soft, obese. Examination of lower extremities shows significant edema bilaterally about 2+. LABS: Noted. Sodium 134, potassium 5.3, BUN 110, serum creatinine 2.76, hemoglobin at 8.4 g/dL. ASSESSMENT: 1. Acute kidney injury, acute tubular necrosis, nonoliguric, renal function is improving. 2. Hyperkalemia associated with acute kidney injury, currently improved. 3. Acute hypoxic respiratory failure, considering terminal wean. 4. Gram-negative sepsis with bacteremia with E coli. Sputum culture also grew E coli. UA did not reveal underlying significant urinary tract infection. PLAN: We will respect patient's wishes. Awaiting family to make the final decision. MMODL / IJN: [id number] /
--- NOTE | 2017-12-24 09:24 | CDI ---
Last Revision, February 2017 Documentation Clarification Form Date: 12/22/2017 2:53:00 PM From: Beatriz Jordan RN, CCDS Admit Date: 12/20/2017 8:09:00 PM Patient Name: Yulissa Arana Visit Number: [id number] ATTENTION: The Clinical Documentation Specialists (CDI) and [facility] Coding Staff appreciate your assistance in clarifying documentation. Please respond to the clarification below the line at the bottom and electronically sign. The CDI & [facility] Coding staff will review the response and follow-up if needed. Please note: Queries are made part of the Legal Health Record. If you have any questions, please contact the author of this message via ITS. Dr. Rankin Altered mental status was documented in the EC Note. Patient history/risk factors: CKD stage III, UTI, Anemia of chronic disease, A/C hypoxic respiratory failure, A/C Hypoxic & Hypercapnic respiratory failure, Sepsis with gram negative pneumonia Clinical Indicators: 12/20 Ed note: "altered mental status." 12/21 H&P: "Increased confusion past few months." Labs: Hgb 9.6/8.4/7.5, Trop .049 CXR:"New complete opacification of the right hemithorax and retrocardiac airspace possibly relating to a loculated pleural effusion although underlying pneumonia is also a consideration. Left small pleural effusion and associated airspace disease are stable." CT Brain: White matter changes suggestive of remote microvascular ischemia Treatment: IVP Solumedrol w/ taper Iv Levaquin, IV Zosyn 1.5L IVF Bolus IV HCO3 IV D50 IV Ca+gl- Iv Insulin In your professional opinion, please clarify the etiology of the altered mental status, if known. Encephalopathy (specify Type- Metabolic, Septic, Anoxic and Underlying Medical Illness) Dementia (if know, specify Type and if with/without Behavioral Disturbance) Other condition (please specify) Unable to determine Please continue to document in your progress notes and discharge summary in order to capture severity of illness and risk of mortality. Include clinical findings that support your diagnosis. Unable to determine MTDD
== END 2017-12-23 10:53 | disposition hospice, inpatient (51) | DRG 871 ==
LOC: EC 19:29 → 6SEL 20:09 → 6ICU 22:51
PROVIDERS: ADMIT Hospitalist; ATTEND Hospitalist
PROC: 5A1945Z Respiratory Ventilation, 24-96 Consecutive Hours (ICD-10-PCS; principal; 2017-12-20)
PROC: 0BH18EZ Insertion of Endotracheal Airway into Trachea, Via Natural or Artificial Opening Endoscopic (ICD-10-PCS; principal; 2017-12-20)
DX: A41.50 Gram-negative sepsis, unspecified (principal); I21.4 Non-ST elevation (NSTEMI) myocardial infarction; I50.33 Acute on chronic diastolic (congestive) heart failure; J96.21 Acute and chronic respiratory failure with hypoxia; J96.22 Acute and chronic respiratory failure with hypercapnia; N17.0 Acute kidney failure with tubular necrosis; R65.21 Severe sepsis with septic shock; J69.0 Pneumonitis due to inhalation of food and vomit; E44.0 Moderate protein-calorie malnutrition; Z68.41 Body mass index [BMI] 40.0-44.9, adult; E87.1 Hypo-osmolality and hyponatremia; I13.0 Hypertensive heart and chronic kidney disease with heart failure and stage 1 through stage 4 chronic kidney disease, or unspecified chronic kidney disease; I47.1 Supraventricular tachycardia; J44.1 Chronic obstructive pulmonary disease with (acute) exacerbation; J94.2 Hemothorax; N18.4 Chronic kidney disease, stage 4 (severe); N39.0 Urinary tract infection, site not specified; B96.20 Unspecified Escherichia coli [E. coli] as the cause of diseases classified elsewhere; D63.8 Anemia in other chronic diseases classified elsewhere; E11.22 Type 2 diabetes mellitus with diabetic chronic kidney disease; Z51.5 Encounter for palliative care; E66.01 Morbid (severe) obesity due to excess calories; E78.5 Hyperlipidemia, unspecified; E83.39 Other disorders of phosphorus metabolism; E87.5 Hyperkalemia; F17.200 Nicotine dependence, unspecified, uncomplicated; G47.33 Obstructive sleep apnea (adult) (pediatric); H57.04 Mydriasis; I48.2 Chronic atrial fibrillation; J45.50 Severe persistent asthma, uncomplicated; K21.9 Gastro-esophageal reflux disease without esophagitis; K76.1 Chronic passive congestion of liver; M19.90 Unspecified osteoarthritis, unspecified site; M79.7 Fibromyalgia; Z66 Do not resuscitate; Z79.01 Long term (current) use of anticoagulants; Z79.4 Long term (current) use of insulin; Z82.49 Family history of ischemic heart disease and other diseases of the circulatory system; Z86.718 Personal history of other venous thrombosis and embolism; Z86.73 Personal history of transient ischemic attack (TIA), and cerebral infarction without residual deficits; Z87.01 Personal history of pneumonia (recurrent); Z90.710 Acquired absence of both cervix and uterus; Z98.42 Cataract extraction status, left eye; Z98.41 Cataract extraction status, right eye; Z96.1 Presence of intraocular lens; Z99.3 Dependence on wheelchair; Z79.51 Long term (current) use of inhaled steroids; Z79.899 Other long term (current) drug therapy; Z88.1 Allergy status to other antibiotic agents; Z88.2 Allergy status to sulfonamides; Z88.8 Allergy status to other drugs, medicaments and biological substances; Z90.49 Acquired absence of other specified parts of digestive tract; Y95 Nosocomial condition
CPT/HCPCS: 31500; 36415; 36600; 51702; 70450; 71045; 80048; 80053; 81001; 82550; 82553; 82805; 83036; 83605; 83735; 83880; 84100; 84132; 84484; 85025; 85610; 85730; 87040; 87070; 87077; 87186; 87205; 93005; 94002; 94003; 94640; 94660; 96361; 96365; 96366; 96367; 96368; 96372; 96375; 96376; 99291

== ENCOUNTER 2017-12-23 10:31 | Inpatient (IN) | payer MEDICAID ==
[2017-12-23] MEDS ORDERED: ATROPINE OPHTH SOLN 1% 5ML BTL SUBLINGUAL PRN (10:37)
[2017-12-23] MEDS ORDERED: ACETAMINOPHEN SUPPOSITORY 650 MG SUPP RECTAL PRN (10:37)
[2017-12-23] MEDS ORDERED: LORazepam 2 MG/ML INJ IV PRN (10:37)
[2017-12-23] MEDS ORDERED: MORPHINE SULFATE (100 MG/2 ML) 100 MG in SODIUM CHLORIDE 0.9% 100 ML IV SCH (10:45)
[2017-12-23] MEDS ORDERED: SCOPOLAMINE 1.5MG/72HR PATCH TRANSDERM SCH (11:00)
[2017-12-23] MEDS ORDERED: IPRATROPIUM-ALBUTEROL 3 ML NEB INHALATION SCH (12:00)
== END 2017-12-23 13:58 | disposition expired | DRG 951 ==
LOC: 6ICU 10:54
PROVIDERS: ADMIT Hospitalist; ATTEND Hospitalist
DX: Z51.5 Encounter for palliative care (principal); I50.33 Acute on chronic diastolic (congestive) heart failure; J96.22 Acute and chronic respiratory failure with hypercapnia; J96.21 Acute and chronic respiratory failure with hypoxia; A41.50 Gram-negative sepsis, unspecified; J18.9 Pneumonia, unspecified organism; N39.0 Urinary tract infection, site not specified; N17.9 Acute kidney failure, unspecified; I13.0 Hypertensive heart and chronic kidney disease with heart failure and stage 1 through stage 4 chronic kidney disease, or unspecified chronic kidney disease; E66.01 Morbid (severe) obesity due to excess calories; N18.3 Chronic kidney disease, stage 3 (moderate); D63.8 Anemia in other chronic diseases classified elsewhere; Z86.73 Personal history of transient ischemic attack (TIA), and cerebral infarction without residual deficits; G47.33 Obstructive sleep apnea (adult) (pediatric); Z86.718 Personal history of other venous thrombosis and embolism; J44.9 Chronic obstructive pulmonary disease, unspecified; I48.91 Unspecified atrial fibrillation; Z98.42 Cataract extraction status, left eye; Z98.41 Cataract extraction status, right eye; Z96.1 Presence of intraocular lens